=== PATIENT | female | born 1980 | race Caucasian/White ===

== ENCOUNTER → 2019-10-31 13:13 | Outpatient (CLI) | payer BC, SELFPAY ==
--- NOTE | ~2019-10-31 | US_ITS ---
EXAMINATION: US pelvic complete w TV DATE: 10/31/2019 13:37 INDICATION: Dysmenorrhea. Right lower quadrant pain. Comparison:No prior studies for comparison. TECHNIQUE: Multiple transabdominal and endovaginal sonographic images of the pelvis performed. FINDINGS: The uterus measures 8.6 x 4.7 x 5.6 cm. The endometrial complex measures 1.5 cm. The right ovary measures 2.1 x 1.9 x 2.2 cm. and the left ovary measures 1.9 x 1.3 x 1.4 cm. There a re small follicles in each ovary. There is no free fluid in the pelvis. There are no abnormal masses seen on either side. IMPRESSION: 1. Endometrial thickening measuring 1.5 cm. Reviewed, dictated and finalized at location A.
== END ==
PROVIDERS: Visit Provider Nurse Practitioner Obstetrics & Gynecology
DX: R93.89 Abnormal findings on diagnostic imaging of other specified body structures (principal); N94.6 Dysmenorrhea, unspecified; N92.0 Excessive and frequent menstruation with regular cycle
CPT/HCPCS: 76830; 76856

== ENCOUNTER → 2020-07-02 10:27 | Outpatient (CLI) | payer BC, SELFPAY ==
--- NOTE | ~2020-07-02 | MM_ITS ---
EXAMINATION: MM screening demetrio BI w wagner HISTORY: Screening mammogram TECHNIQUE: Craniocaudal and mediolateral oblique 3-D tomosynthesis images were obtained and synthetic 2-D images were generated. CAD analysis was submitted and interpreted. COMPARISON: No prior mammogram is available for comparison at this institution. BREAST PARENCHYMAL COMPOSITION: There are scattered areas of fibroglandular density. FINDINGS: RIGHT BREAST: There is no evidence of suspicious mass, calcification, or architectural distortion to suggest malignancy. LEFT BREAST: There is focal asymmetry in the lower inner quadrant of the left breast. IMPRESSION: 1. Focal asymmetry of the left breast which may represent the patient's baseline however no compariso n is currently available. 2. Comparison with prior mammograms is necessary. BI-RADS Category 0: Incomplete: Needs comparison with prior mammograms. Reviewed, dictated and finalized at location A. OMER GREETER IMPRESSION: 1. Focal asymmetry of the left breast which may represent the patient's baselin e however no comparison is currently available. 2. Comparison with prior mammograms is necessary. BI-RADS Category 0: Incomplete: Needs comparison with prior mammograms.
== END ==
PROVIDERS: PCP Internal Medicine; Visit Provider Obstetrics & Gynecology
DX: Z12.31 Encounter for screening mammogram for malignant neoplasm of breast (principal); R92.8 Other abnormal and inconclusive findings on diagnostic imaging of breast
CPT/HCPCS: 77063; 77067

== ENCOUNTER → 2020-07-25 08:12 | Outpatient (CLI) | payer BC, SELFPAY ==
--- NOTE | ~2020-07-25 | MM_ITS ---
EXAMINATION: MM diagnostic mammo unilat LT HISTORY: Focal mammographic asymmetry reported in lower inner quadrant of left breast 07/02/2020 [facility] mammogram TECHNIQUE: Additional ML and spot ML, MLO and cc 3-D tomosynthesis images of the left breast were per formed and synthetic 2-D images were generated. Rolled medial and lateral lateral craniocaudal views of left breast. CAD analysis was submitted and interpreted. COMPARISON: 07/02/2020 and 12/07/2015mammogram examinations FINDINGS: The area of asymmetry suggested on 07/02/2020 screening mammogram in the anterior inner left breast is not confirmed on coned compression or rolled views, compatible with composite shadowing of overlapping fibroglandular stroma. IMPRESSION: 1. No mammographic evidence of malignancy 2. Routine annual mammographic screening is recommended. BI-RADS Category 2: Benign finding(s). Reviewed, dictated and finalized at location A. RECEIVER
== END ==
PROVIDERS: PCP Internal Medicine; Visit Provider Obstetrics & Gynecology
DX: R92.8 Other abnormal and inconclusive findings on diagnostic imaging of breast (principal)
CPT/HCPCS: 77065

== ENCOUNTER 2020-08-08 08:02 | Outpatient (CLI) | payer BC, SELFPAY ==
--- NOTE | 2020-08-08 08:05 | ECG_ITS ---
Measurements Intervals Sagle Rate: 93 P: 18 SC: 151 QRS: 9 QRSD: 89 T: 3 QT: 365 QTc: 455 Interpretive Statements SINUS RHYTHM DELAYED PRECORDIAL R/S TRANSITION BORDERLINE T WAVE ABNORMALITY- ANT/INF LEADS BORDERLINE ECG Electronically Signed On 08-08-2020 8:30:02 P[employer]ER HANGER by Rashel Pal D.O.
[2020-08-08 08:26] LABS: Hematocrit 42.5 % (37.0-47.0); Hemoglobin 14.4 g/dL (12.0-15.0)
== END 2020-08-08 08:03 | disposition home or self-care (01) ==
LOC: ANHSURGERY 08:05
PROVIDERS: PCP Internal Medicine; Visit Provider Surgery
DX: Z01.818 Encounter for other preprocedural examination (principal); K43.2 Incisional hernia without obstruction or gangrene
CPT/HCPCS: 36415; 85014; 85018; 86850; 86900; 86901; 93005

== ENCOUNTER 2020-08-11 00:29 | Outpatient (CLI) | payer BC, SELFPAY ==
[2020-08-11 18:59] LABS: SARS-CoV-2 RNA PCR Negative
== END 2020-08-11 00:30 | disposition home or self-care (01) ==
LOC: ANHCOVIDDT 00:30
PROVIDERS: PCP Internal Medicine; Visit Provider Surgery
DX: Z01.818 Encounter for other preprocedural examination (principal); Z20.828 Contact with and (suspected) exposure to other viral communicable diseases
CPT/HCPCS: 87635; C9803; U0003

== ENCOUNTER 2020-08-15 10:36 | Observation (INO) | payer BC, SELFPAY ==
[2020-08-03 14:21] VITALS: BMI 27.2
--- NOTE | 2020-08-13 09:34 | WPDANESEPP ---
Anes - Eval Pre Procedure Procedure: Operation Date: 08/14/20 07:30 Proposed Procedures p Laparoscopic Incisional Hernia Repair With Mesh, Davinci Assisted - Devon Hendricks DO s Total Laparoscopic Hysterectomy - Suzanna Macias MD Date/Time: 08/13/20 09:34 Pre Op Diagnosis: Incisional Hernia, menorrhaghia Patient Data Age: 40 Gender: F Height: 5 ft 4 in Weight: 72 kg Allergies Allergy/AdvReac Type Severity Reaction Status Date / Time No Known Allergies Allergy Verified 06/08/20 10:45 Home Medications Medication Instructions Recorded Confirmed Type levothyroxine 75 mcg tablet 75 mcg PO DAILY 06/07/20 08/03/20 History phentermine 15 mg PO DAILY 08/03/20 08/03/20 History topiramate 50 mg PO DAILY 08/03/20 08/03/20 History PMFSH Past Medical History Medical History Hypothyroid Surgical History Surgical History H/O partial thyroidectomy x2 , 2018 Hx laparoscopic cholecystectomy 2018, OA Dr. Bunch S/P colon resection right, benign tumor removal Family History Family History Sibling Family history of allergic disorder Mother Family history of hypothyroidism Hypertension Grandparent Diabetes mellitus Grandparent Lymphoma Other Breast cancer Other Family history of malignant neoplasm No family history of malignant neoplasm Social History Social History Smoking status: Never smoker Alcohol intake: never Additional occupation/education comments: Self Employed Gender identity (if verbalized by the patient): Female Spiritual care concerns: No Exam Day of Procedure 08/13/20 09:34
[2020-08-14] VITALS (19 sets, daily range): BP systolic 88–123; BP diastolic 59–89; PULSE 66–104; RESP 12–20; TEMP 36.2–37.1; O2SAT 93–100
[2020-08-14] MEDS: ACETAMINOPHEN 500 MG TABLET 1000 MG PO (06:35)
[2020-08-14] MEDS: LACTATED RINGERS 1,000 ML 30 ML IV CONT ×3 (06:37→12:20)
--- NOTE | 2020-08-14 07:04 | WPDANESEPPF ---
Anes - Initial Pre Proc Eval Procedure: Operation Date: 08/14/20 07:30 Proposed Procedures p Laparoscopic Incisional Hernia Repair With Mesh, Davinci Assisted - Devon Hendricks DO s Total Laparoscopic Hysterectomy - Suzanna Macias MD Date/Time: 08/14/20 07:04 Surgeon: Devon Hendricks DO Pre Op Diagnosis: Incisional Hernia, menorrhaghia Patient Data Age: 40 Gender: F Height: 5 ft 4 in Weight: 72.9 kg Last Vital Signs Temp 97.7 F 08/14/20 06:09 Pulse 80 08/14/20 06:09 Resp 20 08/14/20 06:09 BP 122/83 08/14/20 06:09 Pulse Ox 100 08/14/20 06:09 Allergies Allergy/AdvReac Type Severity Reaction Status Date / Time No Known Allergies Allergy Verified 08/14/20 07:00 Home Medications Medication Instructions Recorded Confirmed Type levothyroxine 75 mcg tablet 75 mcg PO DAILY 06/07/20 08/14/20 History phentermine 15 mg PO DAILY 08/03/20 08/03/20 History topiramate 50 mg PO DAILY 08/03/20 08/03/20 History Patient hx anesthesia problems: post op nausea/vomiting Family hx anesthesia problems: none PMFSH Past Medical History Medical History Hypothyroid Surgical History Surgical History H/O partial thyroidectomy x2 , 2017 Hx laparoscopic cholecystectomy 2017, OA Dr. Bunch S/P colon resection right, benign tumor removal Family History Family History Sibling Family history of allergic disorder Mother Family history of hypothyroidism Hypertension Grandparent Diabetes mellitus Grandparent Lymphoma Other Breast cancer Other Family history of malignant neoplasm No family history of malignant neoplasm Social History Social History Smoking status: Never smoker Alcohol intake: never Living arrangements: with family Additional occupation/education comments: Self Employed Gender identity (if verbalized by the patient): Female Sexual Orientation (if Verbalized by the Patient): Straight or Heterosexual Spiritual care concerns: No Anes - Eval Final PreProcedure Day of Procedure 08/14/20 07:04 Patient weight: overweight Heart: regular rate and rhythm Lungs: clear to auscultation Airway: Mallampati scale class II Neurological: alert and oriented Last oral intake: >/= 8 hours ASA classification: II Emergent: no Anesthetic plan: proceed Anesthesia type and monitoring: general ETT and standard monitoring Informed Consent: The patient's anesthetic plan and its attendant risks and benefits were discussed with the patient/family/POA. Questions were solicited and answers provided to the satisfaction of the patient/family/POA.
[2020-08-14] MEDS: SCOPOLAMINE 1.5 MG PATCH TRANSDERM (07:08)
--- NOTE | 2020-08-14 07:08 | PM.IMHP ---
H&P: HPI History of Present Illness Date/Time: 08/14/20 07:08 Chief Complaint: Incisional hernia Narrative: Lory Rubio is a 40 year old female who presents for hysterectomy and incisional hernia repair. She reports no changes since last seen in office. Review of Systems Review of Systems: All systems reviewed & are unremarkable except as noted in HPI and below Constitutional: Constitutional: Denies chills, Denies fever(s), Denies headache(s) and Denies weight loss Eyes: Eyes: Denies change in vision ENT: Denies dizziness, Denies headache(s), Denies neck mass and Denies throat swelling Cardiovascular: Cardiovascular: Denies chest pain, Denies lightheadedness and Denies dyspnea Respiratory: Respiratory: Denies cough, Denies dyspnea and Denies wheezing Gastrointestinal: Gastrointestinal: Denies abdominal pain, Denies change in bowel habits, Denies nausea and Denies vomiting Genitourinary: Genitourinary: Denies hematuria and Denies dysuria Musculoskeletal: Musculoskeletal: Reports as per HPI Integumentary/Breasts: Skin/Breast: Reports as per HPI Neurologic: Denies dizziness and Denies headache(s) Allergic/Immunologic: Allergic/Immunologic: Denies throat swelling and Denies wheezing PMFSH Past Medical History Medical History Hypothyroid Surgical History Surgical History H/O partial thyroidectomy x2 s, 2018 Hx laparoscopic cholecystectomy 2018, OA Dr. Bunch S/P colon resection right, benign tumor removal Family History Family History Sibling Family history of allergic disorder Mother Family history of hypothyroidism Hypertension Grandparent Diabetes mellitus Grandparent Lymphoma Other Breast cancer Other Family history of malignant neoplasm No family history of malignant neoplasm Social History Social History Smoking status: Never smoker Alcohol intake: never Living arrangements: with family Additional occupation/education comments: Self Employed Gender identity (if verbalized by the patient): Female Sexual Orientation (if Verbalized by the Patient): Straight or Heterosexual Spiritual care concerns: No Meds Home Medications and Allergies Home Medications Medication Instructions Recorded Confirmed Type levothyroxine 75 mcg tablet 75 mcg PO DAILY 06/07/20 08/14/20 History phentermine 15 mg PO DAILY 08/03/20 08/03/20 History topiramate 50 mg PO DAILY 08/03/20 08/03/20 History Allergies Allergy/AdvReac Type Severity Reaction Status Date / Time No Known Allergies Allergy Verified 08/14/20 07:00 Vital Signs Vital Signs - 24 hr 08/14/20 06:09 Temperature 36.5 C Pulse Rate 80 Respiratory Rate 20 Blood Pressure 122/83 Pulse Oximetry 100 Exam Const: General: no acute distress and alert Orientation/consciousness: patient oriented x3 HENMT: Head: normocephalic and atraumatic Ears: hearing grossly normal bilaterally General nose exam: Normal nares present Mouth: Yes Normal oral and palatal mucosa present Eyes: Periorbital: periorbital findings normal Sclera: sclerae normal EOM: EOMs intact bilaterally Neck: Neck: normal visual inspection, no lymphadenopathy and trachea midline Chest: Chest palpation & inspection: normal inspection of the chest Resp: Effort & Inspection: normal respiratory effort Auscultation: clear to auscultation bilaterally Cardio: Jugular venous distension: no JVD Rate: regular rate Rhythm: regular rhythm Heart sounds: S1 normal heart sound present and S2 normal heart sound present Peripheral pulses: Peripheral pulses 2+ throughout GI: Inspection: normal to inspection GI Palp: Yes Soft to palpation, No Tenderness to palpation present (GI), No Guarding due to palpation
--- NOTE | 2020-08-14 07:10 | WPDHPUPDATE1 ---
History and Physical Update Update Date/Time: 08/14/20 07:10 History and Physical has been reviewed, including an updated exam of the patient. There are NO changes in the patient's condition. Risks, benefits, and alternatives have been discussed and questions answered. Patient agrees to proceed with procedure.
--- NOTE | 2020-08-14 07:14 | WPDHPUPDATE1 ---
History and Physical Update Update Date/Time: 08/14/20 07:14 History and Physical has been reviewed, including an updated exam of the patient. There are NO changes in the patient's condition. Risks, benefits, and alternatives have been discussed and questions answered. Patient agrees to proceed with procedure.
--- NOTE | 2020-08-14 07:20 | PM.IMHP ---
H&P: HPI History of Present Illness Date/Time: 08/14/20 07:20 Chief Complaint: Heavy vaginal bleeding Narrative: Lory Rubio is a 40 year old female with severe menorrhagia. We have agreed for total laparoscopic hysterectomy. She understands that there is wrist surgery that injuries may occur. She understands that injuries may result in hospitalization, severe illness, and more surgery. She understands the risk of hemorrhage and infection. Review of Systems Constitutional: Constitutional: Reports no additional constitutional complaints, Denies fatigue, Denies headache(s), Denies lethargy and Denies weakness Eyes: Eyes: Reports no additional eye complaints, Denies blurry vision and Denies photophobia ENT: Reports as per HPI, Denies headache(s) and Denies neck pain Cardiovascular: Cardiovascular: Denies chest pain, Denies diaphoresis, Denies leg edema, Denies palpitations and Denies dyspnea Respiratory: Respiratory: Denies hemoptysis, Denies dyspnea and Denies wheezing Gastrointestinal: Gastrointestinal: Denies abdominal pain, Denies melena, Denies bloating, Denies hematochezia, Denies nausea and Denies vomiting Genitourinary: Genitourinary: Reports no additional female genitourinary complaints Musculoskeletal: Musculoskeletal: Denies joint swelling, Denies neck pain, Denies numbness and Denies stiffness Neurologic: Denies Abnormal speech present, Denies confusion, Denies headache(s), Denies numbness and Denies weakness Psychiatric: Psychiatric: Denies anxiety, Denies confusion, Denies depression, Denies homicidal ideation and Denies suicidal ideation Endocrine: Endocrine: Denies fatigue and Denies palpitations Allergic/Immunologic: Allergic/Immunologic: Denies wheezing PMFSH Past Medical History Medical History Hypothyroid Surgical History Surgical History H/O partial thyroidectomy x2 s, 2018 Hx laparoscopic cholecystectomy 2018, OA Dr. Bunch S/P colon resection right, benign tumor removal Family History Family History Sibling Family history of allergic disorder Mother Family history of hypothyroidism Hypertension Grandparent Diabetes mellitus Grandparent Lymphoma Other Breast cancer Other Family history of malignant neoplasm No family history of malignant neoplasm Social History Social History Smoking status: Never smoker Alcohol intake: never Living arrangements: with family Additional occupation/education comments: Self Employed Gender identity (if verbalized by the patient): Female Sexual Orientation (if Verbalized by the Patient): Straight or Heterosexual Spiritual care concerns: No Meds Home Medications and Allergies Home Medications Medication Instructions Recorded Confirmed Type levothyroxine 75 mcg tablet 75 mcg PO DAILY 06/07/20 08/14/20 History phentermine 15 mg PO DAILY 08/03/20 08/03/20 History topiramate 50 mg PO DAILY 08/03/20 08/03/20 History Allergies Allergy/AdvReac Type Severity Reaction Status Date / Time No Known Allergies Allergy Verified 08/14/20 07:00 Vital Signs Vital Signs - 24 hr 08/14/20 06:09 Temperature 97.7 F Pulse Rate 80 Respiratory Rate 20 Blood Pressure 122/83 Pulse Oximetry 100 Exam Const: General: healthy appearing, comfortable and no acute distress; No confusion Orientation/consciousness: No confusion Eyes: Direct Ophthalmoscopy: No photophobia Resp: Auscultation: clear to auscultation bilaterally, no rales, no rhonchi and no wheezes Cardio: Rate: regular rate Heart sounds: no click, no murmurs and no rubs GI: Inspection: non-distended GI Palp: No abdominal tenderness Auscultation: normal bowel sounds Neuro: General: No confusion Speech: No
[2020-08-14] MEDS: KETOROLAC 15 MG/ML VIAL (*BKC) IV PUSH (07:24)
[2020-08-14] MEDS: ceFAZolin 2 GM/D5W 50 ML 2 GM/50 ML BAG IVPB ×2 (07:33→12:22)
--- NOTE | 2020-08-14 10:32 | P.OP_ITS ---
Procedure Note - Detailed Date of procedure: 08/14/20 Pre-op diagnosis: Incisional Hernia, menorrhaghia Myoma Post-op diagnosis: same Procedure performed: Total laparoscopic hysterectomy. With bilateral salpingectomy Description of procedure: The patient was taken to the operating room. She was prepped and draped in the dorsal lithotomy position. A speculum was placed in the vagina. The cervix was grasped with a tenaculum. Stay sutures were placed at 3 and 9:00 a.m. of 0 Vicryl. The stay sutures were brought through the Angus up. The GAVIN manipulator was placed in the vagina with a fixed Angus cup. The cup was then pushed up around the cervix. The sutures were tied to the handle of the GAVIN manipulator. A 5 mm incision was made on the abdominal skin of the left upper quadrant using a scalpel. A 5 mm trocar was inserted into the intra-abdominal cavity under direct visualization the scope. Pneumoperitoneum was achieved. An 11 mm incision was made in the left lower quadrant of the abdomen with a scalpel. A 11 mm trocar was inserted into the intra-abdominal cavity under direct visualization the scope. A 5 mm periumbilical incision was made. A 5 mm scope was placed into the intra-abdominal cavity under direct visualization of the scope. The paratubal tissue between the tube and ovary was cauterized transected with LigaSure cautery. This was done in bilateral fashion. The paratubal tissue was cauterized transected with the LigaSure cautery and a bilateral fashion, stepwise around the tube to the middle of the round ligament. The suspensory ligament of the ovary was cauterized and transected with ligature cautery in a bilateral fashion. The round ligaments were cauterized and transected in bilateral fashion with LigaSure cautery. The round ligaments were cauterized and transected bilaterally with LigaSure cautery. The broad ligaments were cauterized and transected along the lateral aspects of the uterus down the level of the uterine arteries. A bladder flap was created using sharp and blunt dissection. The ureters were dissected out bilaterally down to the level of the uterine arteries. They could be visualized from the pelvic brim down the uterine arteries. Staying very close to the cervix the parametrium was cauterized transected in a stepwise fashion down to the level of the Angus cup. The Bladder flap was moved distally over the Angus cup using sharp and blunt dissection. The impression of the entire cup was visualized around the cervix. An incision was made with unipolar cautery down under the Angus cup creating a colpotomy incision all the way around the cervix. The uterus was taken out through the vagina. A pneumo occluder was placed in the vagina. The vagina was closed with 0 V lock suture in a running fashion. The ureters were identified a gain and found to be intact to the level of the uterine arteries. The pelvis was irrigated with a copious amount of antibiotic irrigation. The pneumoperitoneum was reduced. The trocars were removed. The skin was closed subcuticular 4 Monocryl covered with Dermabond. The pneumo occluder was removed from the vagina. The vagina was irrigated with Betadine. The patient tolerated the procedure well. She was taken to the recovery room in stable condition. Sponge lap and needle counts were correct x2. Anesthesia: GETA Surgeon: Suzanna Macias MD Estimated blood loss (mL): 200 Drains: No Packing: No Pathology: yes Complications: No immediate complications Condition: stable Disposition: PACU Findings: Grossly normal appearing tubes and ovaries. Uterus - 9
--- NOTE | 2020-08-14 10:45 | SUR.OPER ---
Symbotex Mesh [id number], lot [id number], Exp 2025-01-21.
--- NOTE | 2020-08-14 11:41 | PM.PROC ---
Procedure Note - Detailed Date of procedure: 08/14/20 Pre-op diagnosis: Incisional Hernia, menorrhaghia Post-op diagnosis: same Procedure performed: Laparoscopic incisional hernia repair with Symbotex mesh, da Richard assisted Description of procedure: Procedure as well as risks, benefits, and alternatives were discussed with the patient. Written consent was obtained and placed in chart prior to procedure. Patient was brought back to surgical suite. She was placed supine on operating table. Time-out was done to confirm patient and procedure. She was then intubated by the anesthesia department. A bump was placed under her left hip, and the bed was flexed slightly to extend the space between her costal margin and iliac crest. Her abdomen was prepped and draped in sterile fashion using chlorhexidine prep. The patient underwent laparoscopic hysterectomy. Please refer to Dr. Macias's note for his details. The left lower quadrant 11 mm port was left in place while the 2 other 5 mm ports were removed. A 12 mm incision was made in the left upper quadrant and a 12 mm port was placed under direct visualization. An 8 mm camera port was then also placed in the left lateral abdomen. A Bernardino-Unger cone was also used to place an 0-Vicryl simple interrupted suture at the left upper quadrant and left lower quadrant trocar sites. The left lower quadrant 11 mm port was removed and this was replaced with an 8 mm robotic ports. The robotic arms were brought up to the patient's bedside and secured to the ports. The camera and instruments were inserted, and I then moved over to the robotic console and took control of the camera and instruments. After careful thorough inspection of the abdominal cavity, I began my dissection at the hernia. The preperitoneal fat and falciform ligament were taken down cephalad far enough to allow for mesh placement, and the preperitoneal fat and umbilical ligaments were taken down caudally far enough for mesh placement. The hernia sac was very thin and was therefore left in place within the hernia defect. I then measured the hernia size. The hernia measured 3 cm x 3 cm. The fascia was closed using an 0-Stratafix running suture in a vertical fashion. A 10 cm x 15 cm Symbotex mesh was then placed within the abdominal cavity. This was oriented vertically with the mesh centered on the hernia defect. The mesh was then secured around the perimeter using 2 0 V lock running absorbable suture. The repair was inspected, and one final inspection was made around the abdominal cavity. The robotic instruments were then removed, and the robotic arms were disengaged from the trocars. The ports were then removed under direct visualization, the camera was removed, and the pneumoperitoneum was released. The 0 Vicryl transfascial suture was tied down. The skin of the incisions was then approximated using 4-0 Monocryl subcuticular suture. Exofin glue was then applied on top. The patient was then awakened from anesthesia, extubated, and transferred to recovery. Implants: Symbotex 10cm x 15cm mesh Anesthesia: GETAcacia Surgeon: Devon Hendricks DO Estimated blood loss (mL): 10 Drains: No Complications: No immediate complications Condition: stable Disposition: floor Findings: This is a 40-year-old woman who presented with an incisional hernia just above her umbilicus. She has a history of a laparoscopic right hemicolectomy for a large polyp. She developed an incisional hernia at the extraction site just above her umbilicus. This was causing her pain and had increased in size over time. Discussions were made with the patient about her treatment options. She was undergoing a laparoscopic hysterectomy and wanted to coordinate both surgeries at the same time. Decision was made to proceed with laparoscopic incisional hernia repair with mesh, da Richard assisted at the same time as her laparoscopic hysterectomy with Dr. Macias. A robotic assisted laparoscopic incisio
[2020-08-14] MEDS: HYDROmorphone HCL INJ (*CRX) 1 MG/ML SYR 0.5 MG IV PUSH ×4 (12:35→13:06)
[2020-08-14] MEDS: PROPARACAINE HCL 0.5% 15 ML OPHTH SOLN 1 DROP EACH EYE (13:31)
[2020-08-14] MEDS: KETOROLAC 30 MG/ML VIAL (*BKC) IV PUSH ×2 (15:35→23:42)
[2020-08-14] MEDS: SIMETHICONE 80 MG TAB.CHEW PO (15:35)
[2020-08-14] MEDS: DEXTROSE 5%/0.9% SOD CHL 1,000 ML 100 ML IV CONT (15:36)
[2020-08-14] MEDS: ONDANSETRON INJ 4 MG/2 ML VIAL IV PUSH ×2 (17:31→23:42)
[2020-08-14] MEDS: HYDROcodone/acetaminophen (*CRX) 10-325 MG TABLET 1 TAB PO (20:59)
[2020-08-15 00:05] VITALS: BP 99/61; PULSE 78; RESP 13; TEMP 36.9; O2SAT 95
[2020-08-15 04:30] VITALS: BP 94/63; PULSE 72; RESP 15; TEMP 36.9; O2SAT 96
[2020-08-15] MEDS: HYDROcodone/acetaminophen (*CRX) 10-325 MG TABLET 1 TAB PO ×4 (04:31→17:33)
[2020-08-15] MEDS: DEXTROSE 5%/0.9% SOD CHL 1,000 ML 125 ML IV CONT (04:39)
[2020-08-15] MEDS: KETOROLAC 30 MG/ML VIAL (*BKC) IV PUSH ×2 (05:30→11:41)
[2020-08-15] MEDS: ONDANSETRON INJ 4 MG/2 ML VIAL IV PUSH ×2 (05:31→11:41)
[2020-08-15] MEDS: LEVOTHYROXINE SODIUM 75 MCG TABLET PO (07:06)
[2020-08-15 07:35] VITALS: BP 104/66; PULSE 72; RESP 18; TEMP 37.4; O2SAT 96
[2020-08-15] MEDS: TOPIRAMATE 25 MG TABLET 50 MG PO (07:50)
--- NOTE | 2020-08-15 09:04 | PM.GYNPNOP ---
PROFESSOR OF VISUAL ARTS - A/P Postoperative Procedures: Procedures Operation Date: 08/14/20 07:30 Actual Procedures Side Surgeon p Laparoscopic Incisional Hernia Repair With Mesh, Davinci Assisted Not Applicable DO tomasz Vital Total Laparoscopic Hysterectomy,Bilateral Salpingectomy Suzanna Macias MD Postoperative day: 1 Postoperative status: doing well and other (Tollerating Regular Diet) Postoperative plan: routine post-op care and discharge Time Spent With Patient Time: Total time spent is greater than 50% in coordination of care (as documented) at patient's floor/unit and/or counseling patient: Time with patient: 15 - 25 minutes PROFESSOR OF VISUAL ARTS- PN:Subj Post-Op Subjective Date/time seen: 08/15/20 09:04 Subjective: patient reports feeling better, pain is well controlled and patient is tolerating oral intake Exam Const: General: cooperative, healthy appearing, comfortable and no acute distress Resp: Auscultation: no crackles, no rales, no rhonchi and no wheezes Cardio: Rhythm: regular rhythm Heart sounds: no click and no murmurs GI: Inspection: non-distended Auscultation: normal bowel sounds Other: Incisions - CDI Extrem: General: normal to inspection, no pedal edema and no calf tenderness PROFESSOR OF VISUAL ARTS - PN: Obj Data Vital Signs Vital Signs: Vital Signs - 24 hr 08/14/20 12:03 08/14/20 12:15 08/14/20 12:30 Temperature 97.3 F L Pulse Rate 85 72 66 Respiratory Rate 12 14 12 Blood Pressure 121/89 123/82 120/87 Pulse Oximetry 100 100 100 08/14/20 12:45 08/14/20 13:00 08/14/20 13:15 Temperature Pulse Rate 76 67 69 Respiratory Rate 12 12 12 Blood Pressure 115/89 111/89 98/76 L Pulse Oximetry 100 95 93 08/14/20 13:30 08/14/20 13:42 08/14/20 13:45 Temperature 97.2 F L Pulse Rate 70 72 70 Respiratory Rate 14 16 16 Blood Pressure 109/73 96/66 L 97/64 L Pulse Oximetry 97 100 99 08/14/20 14:00 08/14/20 14:30 08/14/20 15:00 Temperature 97.7 F Pulse Rate 70 74 72 Respiratory Rate 16 16 16 Blood Pressure 94/59 L 88/59 L 97/64 L Pulse Oximetry 96 97 97 08/14/20 15:30 08/14/20 16:00 08/14/20 17:00 Temperature Pulse Rate 73 76 69 Respiratory Rate 16 16 16 Blood Pressure 100/62 102/59 L Pulse Oximetry 100 100 100 08/14/20 18:25 08/14/20 18:50 08/14/20 19:30 Temperature 98.7 F Pulse Rate 81 73 104 H Respiratory Rate 16 16 15 Blood Pressure 101/63 101/65 108/68 Pulse Oximetry 99 08/15/20 00:05 08/15/20 04:30 Temperature 98.5 F 98.4 F Pulse Rate 78 72 Respiratory Rate 13 15 Blood Pressure 99/61 L 94/63 L Pulse Oximetry 95 96 Intake/Output Intake/Output: Intake & Output 08/12/20 08/13/20 08/14/20 08/15/20 23:59 23:59 23:59 23:59 Intake Total 550 1000 Output Total 825 Balance 550 175 Meds/Results Medications: Active Medications Generic Name Dose Route Start Last Admin Trade Name Freq PRN Reason Stop Dose Admin Hydrocodone Bitart/Acetaminophen 1 tab 08/14/20 13:36 Hydrocodone/Acetaminophen (*Crx) 5-325 Mg Tablet PO Q3H PRN Pain Rated 5 or Less Hydrocodone Bitart/Acetaminophen 1 tab 08/14/20 13:36 08/15/20 07:50 Hydrocodone/Acetaminophen (*Crx) 10-325 Mg Tablet PO 1 tab Q3H PRN Administration Pain Rated 6 or Greater Artificial Tears 1 drop 08/14/20 13:28 Artificial Tears Op Soln 15 Ml Bottle EACH EYE Q2H PRN Dry Eye(s) Dextrose/Sodium Chloride 1,000 mls @ 100 mls/hr 08/14/20 15:30 08/15/20 04:39 Dextrose 5% Sodium Chloride 0.9% IV CONT 125 mls/hr .Q10H ELIAS Administration Ibuprofen 600 mg 08/14/20 13:36 Ibuprofen 600 Mg Tablet PO Q6H PRN Cramping Ketorolac Tromethamine 30 mg 08/14/20 13:36 08/15/20 05:30 Ketorolac 30 Mg/Ml Vial (*Bkc) IV PUSH 08/19/20 13:37 30 mg Q6H PRN Administration Pain Rated 4-6 Levothyroxine Sodium 75 mcg 08/15/20 06:30 08/15/20 07:06 Levothyroxine Sodium 75 Mcg Tablet PO 75 mcg DAILY@0630 ELIAS Administration Naloxone HCl 0.1 mg 08/14/20 1
--- NOTE | 2020-08-15 11:16 | PM.PNGS ---
Progress Note: A&P Assessment and Plan (1) Incisional hernia: Qualifiers: Obstruction and gangrene presence: without obstruction or gangrene Qualified Code(s): K43.2 - Incisional hernia without obstruction or gangrene Code(s): K43.2 - Incisional hernia without obstruction or gangrene Status: Acute Assessment and Plan: POD#1 and patient doing fair. Encouraged her to get up and walk the halls multiple times today and try sitting in the chair. Continue analgesics as needed and try alternating the ibuprofen with the [place]. Also encouraged small frequent meals and trying to eat something when taking her medication to prevent nausea. If her pain improves, she is tolerating activity, and she is tolerating a diet later today, it is okay from our standpoint for the patient to be discharged home. Follow-up with Dr. Hendricks as scheduled. No lifting more than 10-15 pounds. Use abd binder as directed. (2) Menorrhagia: Qualifiers: Menorrhagia type: with regular cycle Qualified Code(s): N92.0 - Excessive and frequent menstruation with regular cycle Code(s): N92.0 - Excessive and frequent menstruation with regular cycle Status: Acute Additional Plan Discussed the patient's case with Dr. Hendricks. Subjective Subjective Date/Time Seen: 08/15/20 10:16 Post Op day: 1 Patient reports: still having pain, no flatus and no bowel movement Interval history: Patient seen this morning. She reports a lot of soreness and abdominal pain that is improving with oral analgesics. Reports recently having her Tirado removed this morning and has not yet voided. Denies getting out of bed since surgery because of her abdominal pain. No flatus or BM yet. Reports some nausea but has been taking the narcotics on an empty stomach with little oral intake, no vomiting. Review of Systems Review of Systems: All systems reviewed & are unremarkable except as noted in HPI and below Constitutional: Constitutional: Reports as per HPI, Reports no additional constitutional complaints, Denies chills and Denies fever(s) Cardiovascular: Cardiovascular: Reports no additional cardiovascular complaints, Denies chest pain, Denies leg edema and Denies dyspnea Respiratory: Respiratory: Reports no additional respiratory complaints, Denies cough and Denies dyspnea Gastrointestinal: Gastrointestinal: Reports as per HPI, Reports no additional gastrointestinal complaints, Denies bloating, Reports nausea and Denies vomiting Neurologic: Reports system reviewed and no additional complaints, except as documented, Denies Abnormal speech present, Denies confusion and Denies focal weakness Psychiatric: Psychiatric: Denies confusion Exam Const: General: comfortable, no acute distress, alert and awake Orientation/consciousness: patient oriented x3 Resp: Effort & Inspection: normal respiratory effort Auscultation: clear to auscultation bilaterally Cardio: Rate: regular rate Rhythm: regular rhythm GI: Inspection: non-distended and incision GI Palp: Yes Soft to palpation, Yes Tenderness to palpation present (GI) (diffusely throughout, worse near incisions) and No Rebound tenderness present Auscultation: normal bowel sounds Rectal Exam: deferred Other: Abdominal incisions clean and dry, glue intact, minimal bloody drainage at periumbilical incision Skin: General skin exam: normal color Rashes: no rashes Neuro: General: moves all extremities and no focal motor deficits Cranial nerves: Yes CN's II-XII intact bilaterally Speech: normal speech and No Abnormal speech present Extrem: General: normal to inspection, no clubbing, cyanosis or edema and no calf tenderness Psych: Mental Status: mental status grossly normal Attitude: cooperative Thought process: Normal thought process present Thought content: Yes Normal thought content present Insight: Good insight present (Psych) Judgement: Good judgement present (Psych) Objective Data Vital Signs V
[2020-08-15 11:35] VITALS: BP 94/67; PULSE 56; RESP 24; O2SAT 94
--- NOTE | 2020-08-15 11:35 | WPDANESPN ---
Anes - Prog Note Post-Op Date/Time: 08/15/20 11:35 Cardiovascular status: normal Respiratory status: normal Airway patency: baseline Mental status: baseline Post-Op hydration status: normal Vital Signs: Last Vital Signs Temp 37.4 C 08/15/20 07:35 Pulse 72 08/15/20 07:35 Resp 18 08/15/20 07:35 BP 104/66 08/15/20 07:35 Pulse Ox 96 08/15/20 07:35 Pain Score (VAS): 5 I/O: Intake & Output 08/14/20 08/15/20 08/15/20 23:59 07:59 15:59 Intake Total 1000 375 Output Total 825 400 Balance 175 -25 Post-procedural complaints: nausea and vomiting Patient Feedback: Patient satisfied with anesthetic care. Other Findings: Patient reports blurry vision. Vision remains blurry when using corrective lenses which are normally worn. Findings discussed with Dr. Escoto
[2020-08-15 11:42] VITALS: BP 96/67; PULSE 62; RESP 22; O2SAT 95
[2020-08-15] MEDS: IBUPROFEN 600 MG TABLET PO (17:33)
--- NOTE | 2020-09-11 20:55 | PM.DS ---
DS: Admitting Diagnosis Admitting Diagnosis Admitting Diagnosis: incisional hernia, menorrhagia DS: Summary Hospital Course Hospital Course: this patient is a 40-year-old female who was admitted for surgery. She was to have a hernia repair and a hysterectomy. She had menorrhagia and a hernia. She recovered normally. She is in the hospital for about 24 hours. She was afebrile throughout that time. Her pain was well controlled and she was ambulating, tolerating p.o. at appropriate times. She was discharged on postoperative day 1. Status at Discharge Functional status at discharge: independent ambulation Time Spent with Patient Time attestation: Total time spent providing and/or coordinating discharge services: DS: Data Data Completed and Pending Completed studies during hospitalization: Pending at discharge 08/14/20 09:56 Surgical [PTH] Routine Discharge Plan Discharge Consulting providers: Suzanna Macias ; Jana Wallis Discharging Clinician: Devon Schroeder Patient Disposition: Home, Self-Care Activity: pelvic rest Diet: as tolerated Discharge Instructions: Remove the Scopolamine patch that was placed behind your ear in 72 hours or less. Wash your hands after touching. DISCHARGE INSTRUCTION SHEET FOR HERNIA, GALLBLADDER AND APPENDIX SURGERIES DR. SCHROEDER PATIENT TO TAKE HOME 1. May shower in 24 hours, no soaking in bath x 2weeks. 2. Call office for: Wound increasingly painful or bleeding Vomiting Fever of greater than 101 degrees 3. If no bowel movement for three days, take 1 oz. (30 ml) Milk of Magnesia or MiraLax 17g 1 to 2 times daily. 4. No heavy lifting > 10-15 pounds x6 weeks for hernia repairs and 2 weeks for laparoscopic cholecystectomy or appendectomy. 5. No driving for 3 days or while taking narcotic pain medications. 6. Ice to surgical site for 48 hours (30 min on, then 30 min off). 7. Up walking 10-30 minutes three times per day. 8. Resume previous home medications. 9. Follow-up 10-14 days in office for wound check or as previously scheduled. ([phone]) 10. Oral pain medications prescription to be sent to pharmacy. Take Tylenol 500mg every 6 hours and Ibuprofen 600mg every 6 hours for the first 2 days, then as needed. 11. NUTRITION: Start out by drinking fluids and increase your diet as tolerated. If you experience nausea, try dry toast, crackers, and 7-UP. If nausea or vomiting persists, contact your surgeon?s office. 12. Gallbladders-Low Fat Diet for 2 weeks (send care note of low fat diet) 13. Inguinal Hernias-wear scrotal support for 48 hours 14. Abdominal Hernias-if sent home with abdominal binder, wear for the first 2 weeks (may remove to shower or at night to sleep). Revised December 2018 Patient Instructions: Laparoscopic Hysterectomy (DC), Umbilical Hernia Repair (DC) Stand Alone Forms: General Discharge Instructions Follow-up/Referrals: Suzanna Macias MD [Physician] - Devon Schroeder, [Physician] - Keep Reg. Scheduled Appt. Discharge Medications: Continued levothyroxine 75 mcg tablet 75 mcg PO DAILY RF: 0 phentermine 15 mg capsule 15 mg PO DAILY RF: 0 topiramate 50 mg tablet 50 mg PO DAILY RF: 0 Date of admission: 08/15/20 10:36 Primary Care Provider: Kristal,Breezy Bryant Admitting Provider: Devon Schroeder Attending physician on admission: Devon Schroeder Condition: Stable
== END 2020-08-15 19:30 | disposition home or self-care (01) ==
LOC: ANHSURGERY 10:44 → ANHOB2 10:44
PROVIDERS: Obstetrics & Gynecology; Admitting Provider Surgery; PCP Internal Medicine; Visit Provider Surgery
PROC: (CPT 49560; principal; 2020-08-14 07:30)
PROC: 0UT9FZZ Resection of Uterus, Via Natural or Artificial Opening With Percutaneous Endoscopic Assistance (ICD-10-PCS; CPT 58552; 2020-08-14 07:30)
DX: K43.2 Incisional hernia without obstruction or gangrene (principal); N92.0 Excessive and frequent menstruation with regular cycle; E03.9 Hypothyroidism, unspecified
CPT/HCPCS: 49560; 49568; 58552; S2900 ×2; 88307; 96374; 96375; 99199; A9270; C1781; C9290; G0378; G0379; J0690; J1100; J1170; J1885; J2250; J2405; J2704; J2710; J3010; J7030; J7042; J7120

== ENCOUNTER → 2020-09-04 12:49 | Outpatient (CLI) | payer BC, SELFPAY ==
--- NOTE | ~2020-09-04 | US_ITS ---
EXAMINATION: US venous doppler [facility] EXAM DATE: 09/04/2020 13:13 INDICATION: M79.605 - Pain in left leg TECHNIQUE: Multiple grayscale, color flow and Doppler images of the left lower extremity deep venous system were obtained and reviewed. There is no prior study for comparison. FINDINGS: The left common femoral, femoral and profunda veins demonstrate normal color flow, respirat ory variation, augmentation and compressibility. Compressibility, color flow confirmed within the le ft popliteal, posterior tibial, peroneal, and greater saphenous veins. IMPRESSION: 1. No left lower extremity deep venous thrombosis. Reviewed, dictated and finalized at location B. CE CAPTAIN
== END ==
PROVIDERS: PCP Internal Medicine; Visit Provider Surgery
DX: M79.605 Pain in left leg (principal)
CPT/HCPCS: 93971

== ENCOUNTER → 2020-11-05 08:57 | Outpatient (CLI) | payer BC, SELFPAY ==
--- NOTE | ~2020-11-05 | CT_ITS ---
EXAMINATION: CT abdomen pelvis w con EXAM DATE: 11/05/2020 10:56 INDICATION: RLQ pain, pelvic and perineal pain. Bowel resection 10 years ago, cholecystectomy 3 years ago, hysterectomy, hernia repair. TECHNIQUE: Spiral CT of the abdomen and pelvis was performed following intravenous injection of 100 m L Omnipaque 350. Axial, coronal and sagittal images were reviewed. The dose-length product (DLP) fo r this examination was 623.80 mGy-cm. The exposure was tailored according to patient size (auto mA e xposure control), and iterative reconstruction (ASIR) was used as additional dose reduction technique . Comparison is made to prior examination from 05/09/2019. FINDINGS: There is 10 mm right adrenal nodule appears unchanged compared to 2019, likely adenoma The liver, spleen, adrenal glands and pancreas are otherwise unremarkable. There are cholecystectomy cl ips. Portal and splenic veins are patent. Kidneys enhance symmetrically. There is no hydronephrosis . Lobular renal contours. The uterus is not identified and has likely been surgically resected. The bladder is unremarkable. There is no retroperitoneal or pelvic lymphadenopathy. Interval anterior hernia repair. The appendix is normal. Ileal anastomosis site identified. The stomach is unremarkable. There is ex pected amount of colonic stool. No free intraperitoneal gas. The heart is normal in size. There are no pericardial or pleural effusions. The lung bases are unremarkable. Left hip bone island unch anged. IMPRESSION: 1. No acute intra-abdominal findings. Normal appendix. 2. Surgical changes. Reviewed, dictated and finalized at location A.
== END ==
PROVIDERS: Visit Provider Obstetrics & Gynecology
DX: R10.2 Pelvic and perineal pain (principal)
CPT/HCPCS: 74177; Q9967

== ENCOUNTER → 2021-07-05 10:30 | Outpatient (CLI) | payer BC, SELFPAY ==
--- NOTE | ~2021-07-05 | MM_ITS ---
EXAMINATION: MM screening demetrio BI w wagner HISTORY: Screening mammogram TECHNIQUE: Craniocaudal and mediolateral oblique 3-D tomosynthesis images were obtained and synthetic 2-D images were generated. CAD analysis was submitted and interpreted. COMPARISON: 07/25/2020 diagnostic left mammogram 07/02/2020 bilateral screening mammogram / outside bilateral screening mammogram BREAST PARENCHYMAL COMPOSITION: There are scattered areas of fibroglandular density. FINDINGS: There is no evidence of suspicious mass, calcification, or architectural distortion to sugg est malignancy in either breast. There has been no suspicious interval change. IMPRESSION: 1. No mammographic evidence of malignancy. 2. Recommend routine screening mammography in one year. BI-RADS Category 1: Negative Reviewed, dictated and finalized at location A. MOUNTER
== END ==
PROVIDERS: Visit Provider Obstetrics & Gynecology
DX: Z12.31 Encounter for screening mammogram for malignant neoplasm of breast (principal)
CPT/HCPCS: 77063; 77067

== ENCOUNTER 2021-10-03 15:33 | Outpatient (CLI) | payer OTHER, SELFPAY ==
--- NOTE | ~2021-10-03 | CT_ITS ---
EXAMINATION: CT abdomen pelvis w con DATE: 10/03/2021 15:59 INDICATION: Epigastric abdominal pain. Right upper quadrant abdominal pain. TECHNIQUE: Computed tomography (CT) of the abdomen and pelvis was performed with 100 mL Omnipaque 350 intravenous contrast. Automated exposure control and iterative reconstruction technique were employe d. The dose-length product was 545.62 mGy-cm. COMPARISON: CT abdomen and pelvis 11/05/2020 FINDINGS: The visualized portions of the lung bases demonstrate mild atelectasis. Calcified mediastin al and right hilar lymph nodes are consistent with old granulomatous disease. No pleural effusion. Th e heart size is normal. No pericardial effusion. There is a small sliding hiatal hernia. There are cy sts in the liver measuring up to 11 mm. There are changes of cholecystectomy. Calcifications in the s pleen are consistent with old granulomatous disease. The pancreas, adrenal glands, and are normal. Th ere is cortical thinning of the kidneys. There are cysts in right kidney measuring up to 8 mm. There is a 4.5 cm mass in left ovary. There are no dilated loops of bowel. The appendix is normal. There is soft tissue and fat stranding in the greater omentum between the stomach and transverse colon. There is physiologic fluid in the pelvis. There are no pathologically enlarged lymph nodes. There is mild thoracic spondylosis. IMPRESSION: 1. Soft tissue stranding in the greater omentum between the stomach and transverse colon. The differe ntial diagnosis includes inflammation/infection such as transverse colon diverticulitis and less like ly peritoneal carcinomatosis. 2. 4.5 cm left ovarian mass, which may be a hemorrhagic cyst or much less likely neoplasm. Pelvis ult rasound is recommended. Reviewed, dictated and finalized at location E. TOR TECHNICIAN IMPRESSION: 1. Soft tissue stranding in the greater omentum between the stomach and transve rse colon. The differential diagnosis includes inflammation/infection such as t ransverse colon diverticulitis and less likely peritoneal carcinomatosis. 2. 4.5 cm left ovarian mass, which may be a hemorrhagic cyst or much less likel y neoplasm. Pelvis ultrasound is recommended.
== END 2021-10-03 15:34 | disposition home or self-care (01) ==
LOC: ANHIMG 15:41
PROVIDERS: PCP Internal Medicine; Visit Provider Surgery
DX: R10.13 Epigastric pain (principal); R10.11 Right upper quadrant pain
CPT/HCPCS: 74177; Q9967

== ENCOUNTER 2021-10-03 17:29 | Observation (INO) | payer OTHER, SELFPAY ==
--- NOTE | ~2021-10-03 | US_ITS ---
EXAMINATION: US pelvic complete w TV DATE: 10/04/2021 09:54 INDICATION: Left ovarian mass TECHNIQUE: Multiple transabdominal and endovaginal sonographic images of the pelvis were obtained. COMPARISON: Ultrasound dated 11/01/[address] dated 10/03/2021 FINDINGS: The uterus is not no longer visualized and has reportedly been resected. The right ovary measures 2.2 x 1.4 x 1.9 cm. The left ovary measures 4.2 x 3.9 x 3.6 cm. 3.1 cm complex cystic lesion in the left ovary with several thin internal septations and the peripheral solid hypoechoic region which is with out evident internal vascular flow on color Doppler which suggests clot in the setting of a hemorrhag ic cyst. Vascular flow is seen with color Doppler at the periphery of the left ovary as well as in th e right ovary. There is no free fluid in the pelvis. IMPRESSION: 1. 3.1 cm complex cystic left ovarian lesion with appearance suggestive of an evolving hemorrhagic cy st. Recommend 6-12 week follow-up pelvic ultrasound. 2. Status post hysterectomy. Reviewed, dictated and finalized at location A. INER OPERATOR IMPRESSION: 1. 3.1 cm complex cystic left ovarian lesion with appearance suggestive of an e volving hemorrhagic cyst. Recommend 6-12 week follow-up pelvic ultrasound. 2. Status post hysterectomy.
--- NOTE | 2021-10-03 17:47 | PC.NURSE ---
This patient, Lory Rubio, was admitted to 3 Med Surg Room 327-01. Patient/family oriented to hospital policies and general routines including ID bracelet, bed and alarms, visiting hours, pain management, procedures, bathroom and other care routines, personal items, smoking policy, room service/diet, and visiting hours. Information on how to activate the Rapid Response Team has been discussed. Patient/Family are encouraged to report perceived risks to care and to ask questions if they do not understand what they are told or what they should do.
[2021-10-03] MEDS: MORPHINE SULFATE (*CRX) 2 MG/ML INJ IV PUSH ×2 (18:18→23:31)
[2021-10-03] MEDS: LACTATED RINGERS 1,000 ML 100 ML IV CONT (18:19)
[2021-10-03] MEDS: PANTOPRAZOLE SODIUM IV 40 MG VIAL IV PUSH (18:20)
[2021-10-03 18:21] VITALS: BMI 28.3
[2021-10-03 18:46] LABS: Basophils Absolute Auto 0.1 K/mm3 (0.0-0.1); Eosinophils Absolute Auto 0.2 K/mm3 (0-0.3); Eosinophils Percent Auto 1.9 % (0-4.4); Hematocrit 41.2 % (37.0-47.0); Hemoglobin 13.9 g/dL (12.0-15.0); Immature Granulocyte Absolute 0.03 K/mm3 (0.00-0.031); Immature Granulocyte Percent A 0.3 % (0-0.5); Lymphocytes Percent Auto 21.6 % (18.3-44.2); Mean Corpuscular HGB Conc 33.7 g/dl (32-36); Mean Corpuscular Hemoglobin 27.9 pg (26-34); Mean Corpuscular Volume 82.6 fl (80-100); Mean Platelet Volume 9.9 fl (7.4-10.4); Monocytes Absolute Auto 0.7 K/mm3 (0.1-0.6); Monocytes Percent Auto 7.9 % (2.6-8.5); Neutrophils Absolute Auto 5.9 K/mm3 (1.3-6.7); Neutrophils Percent Auto 67.3 % (45.5-73.1); Platelet Count Result 352 k/mm3 (150-375); Red Blood Count 4.99 M/mm3 (4.2-5.4); Red Cell Distribution Width 12.7 % (11.5-14.5); White Blood Count 8.8 K/mm3 (4.5-10.0)
[2021-10-03 18:56] LABS: Alanine Aminotransferase 21 U/L (4-35); Albumin Level 4.7 g/dL (3.5-5.1); Alkaline Phosphatase 96 U/L (38-126); Anion Gap 12 mmol/L (8-16); Aspartate Amino Transferase 22 U/L (14-36); Bilirubin,Total 0.8 mg/dL (0.2-1.3); Blood Urea Nitrogen 16 mg/dL (7-17); Calcium 9.6 mg/dL (8.4-10.2); Carbon Dioxide 20 mmol/L (22-30); Chloride 106 mmol/L (98-107); Estimated CRCL calculation 90 ml/min; Estimated Glomerular Filt Rate > 60; Glucose 92 mg/dL (65-110); Potassium 3.9 mmol/L (3.4-5.0); Sodium 138 mmol/L (137-145)
--- NOTE | 2021-10-03 19:39 | PM.IMHP ---
H&P: HPI History of Present Illness Date/Time: 10/03/21 19:39 Chief Complaint: Epigastric pain Narrative: 41 yo woman presents with Epigastric and RUQ pain that started 5-6 days ago. Patient states this was gradual in onset and does not recall any specific activity or meal that brought this about. She denies fevers, change in bowel habits, hematochezia or melena. Her pain has become more severe to the point where she cannot get any relief. OTC Tylenol and Ibuprofen are not helping. She has a hx of laparoscopic incisional hernia repair 14 months ago, but this pain is more superior to where the hernia was. She had been well healed and was tolerating activity without any significant pain. She also has a hx of laparoscopic right hemicolectomy for polyp, laparoscopic hysterectomy, and laparoscopic cholecystectomy. She saw her PCP Thursday and labs were ordered. She reports normal lab work which included a CBC, CMP, and lipase. She was sent for a STAT CT Abd/Pelvis this afternoon and results showed inflammatory/infectious process near transverse colon concerning for possible diverticulitis. She was directly admitted to the hospital for further workup and treatment. Review of Systems Review of Systems: All systems reviewed & are unremarkable except as noted in HPI and below Constitutional: Constitutional: Denies chills and Denies fever(s) Eyes: Eyes: Denies change in vision ENT: Denies hearing loss, Denies neck pain and Denies sore throat Cardiovascular: Cardiovascular: Denies chest pain and Denies dyspnea Respiratory: Respiratory: Denies cough, Denies dyspnea and Denies wheezing Gastrointestinal: Gastrointestinal: Reports as per HPI Genitourinary: Genitourinary: Denies hematuria and Denies dysuria Musculoskeletal: Musculoskeletal: Denies arthralgias, Denies joint swelling and Denies neck pain Allergic/Immunologic: Allergic/Immunologic: Denies wheezing COUNTS INCLUDE 234 BEDS AT THE [facility] Past Medical History Medical History BMI 30.0-30.9,adult Depression Hypothyroid Melanoma Surgical History Surgical History H/O partial thyroidectomy x2 , 2018 History of incisional hernia repair 08/14/20 Laparoscopic incisional hernia repair with Symbotex mesh, da Richard assisted Hx laparoscopic cholecystectomy 2018, OA Dr. 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 Gender identity (if verbalized by the patient): Female Sexual Orientation (if Verbalized by the Patient): Straight or Heterosexual Spiritual care concerns: No Meds Home Medications and Allergies Home Medications Medication Instructions Recorded Confirmed Type levothyroxine 75 mcg tablet 75 mcg PO DAILY 06/07/20 10/03/21 History phentermine 15 mg PO DAILY 08/03/20 10/03/21 History topiramate 50 mg PO DAILY 08/03/20 10/03/21 History Allergies Allergy/AdvReac Type Severity Reaction Status Date / Time No Known Allergies Allergy Verified 10/03/21 14:41 Exam Const: General: alert; No acute distress Orientation/consciousness: patient oriented x3 Limitations: no limitations HENMT: Head: normocephalic and atraumatic Ears: hearing grossly normal bilaterally General nose exam: Normal external nose present and Normal nares present Mouth: Yes Normal oral and palata
[2021-10-03 21:55] VITALS: BP 108/74; PULSE 79; RESP 18; TEMP 36.7; O2SAT 96
[2021-10-04] MEDS: LEVOTHYROXINE SODIUM 75 MCG TABLET PO (05:36)
[2021-10-04 05:47] VITALS: BP 97/72; PULSE 94; RESP 18; TEMP 36.9; O2SAT 99
[2021-10-04] MEDS: LACTATED RINGERS 1,000 ML 100 ML IV CONT (06:14)
[2021-10-04 07:47] LABS: Hematocrit 38.3 % (37.0-47.0); Hemoglobin 13.1 g/dL (12.0-15.0); Mean Corpuscular HGB Conc 34.2 g/dl (32-36); Mean Corpuscular Hemoglobin 28.6 pg (26-34); Mean Corpuscular Volume 83.6 fl (80-100); Mean Platelet Volume 9.7 fl (7.4-10.4); Platelet Count Result 283 k/mm3 (150-375); Red Blood Count 4.58 M/mm3 (4.2-5.4); Red Cell Distribution Width 12.8 % (11.5-14.5); White Blood Count 5.7 K/mm3 (4.5-10.0)
[2021-10-04 08:01] LABS: Anion Gap 8 mmol/L (8-16); Blood Urea Nitrogen 14 mg/dL (7-17); CRP 3.6 mg/dL (<1.0); Calcium 8.8 mg/dL (8.4-10.2); Carbon Dioxide 19 mmol/L (22-30); Chloride 107 mmol/L (98-107); Estimated CRCL calculation 80 ml/min; Estimated Glomerular Filt Rate > 60; Glucose 91 mg/dL (65-110); Potassium 3.8 mmol/L (3.4-5.0); Sodium 134 mmol/L (137-145)
--- NOTE | 2021-10-04 08:09 | PM.PNGS ---
Progress Note: A&P Assessment and Plan (1) Epigastric pain: Code(s): R10.13 - Epigastric pain Status: Acute Assessment and Plan: CT shows inflammatory/infectious process near transverse colon and stomach. No real signs of inflammation in colon itself and no free air. Discussed possibilities of transverse colon diverticulitis or peptic ulcer disease. Also possible localized inflammatory process involving omentum or less likely carcinomatosis. Will consult GI this AM due to no clear cause for her pains. WBC remains normal and CRP only minimally elevated. Continue IV Zosyn and Protonix. Clear liquids for now until GI evaluates patient. (2) Abnormal CT of the abdomen: Code(s): R93.5 - Abnormal findings on diagnostic imaging of other abdominal regions, including retroperitoneum Status: Acute (3) Mass of left ovary: Code(s): N83.8 - Other noninflammatory disorders of ovary, fallopian tube and broad ligament Status: Acute Assessment and Plan: Will get pelvic u/s today. If left ovarian mass is more concerning for malignancy, then carcinomatosis would be more likely with the omentum. Will await results before working up further. Subjective Subjective Date/Time Seen: 10/04/21 08:09 Interval history: Still having pain. Morphine not helping much. No fevers. No vomiting. Pain constant. Denies using excessive NSAIDs. Exam GI: Inspection: non-distended GI Palp: Yes Tenderness to palpation present (GI) (epigastric and some mild generalized), No Guarding due to palpation present (GI) and No Rebound tenderness present Auscultation: normal bowel sounds Objective Data Vital Signs Vital Signs: Vital Signs - 24 hr 10/03/21 21:55 10/04/21 05:47 Temperature 36.7 C 36.9 C Pulse Rate 79 94 Respiratory Rate 18 18 Blood Pressure 108/74 97/72 L Pulse Oximetry 96 99 Intake/Output Intake/Output: Intake & Output 10/01/21 10/02/21 10/03/21 10/04/21 23:59 23:59 23:59 23:59 Intake Total 50 1170 Balance 50 1170 Meds/Results Medications: Active Medications Generic Name Dose Route Start Last Admin Trade Name Freq PRN Reason Stop Dose Admin Acetaminophen 650 mg 10/03/21 17:44 Acetaminophen 325 Mg Tablet PO Q4H PRN Mild Pain (1-3) or Fever Enoxaparin Sodium 40 mg 10/04/21 09:00 Enoxaparin 40 Mg/0.4 Ml Syringe SUB-Q DAILY [facility] Piperacillin/Tazobactam/Dextrose 3.375 gm in 50 mls @ 100 mls/hr 10/04/21 00:00 10/04/21 06:07 Zosyn 3.375 Gm/D5w 50ml Pm IVPB Infused Q6HR [facility]IAS Infusion Lactated Ringer's 1,000 mls @ 100 mls/hr 10/03/21 17:45 10/04/21 06:14 Lr - Lactated Ringers Iv IV CONT 100 mls/hr .Q10H [facility]IAS Administration Levothyroxine Sodium 75 mcg 10/04/21 06:30 10/04/21 05:36 Levothyroxine Sodium 75 Mcg Tablet PO 75 mcg DAILY@0630 [facility] Administration Morphine Sulfate 4 mg 10/03/21 17:44 Morphine Sulfate (*Crx) 4 Mg/Ml Inj IV PUSH Q2H PRN Pain Rated 7-10 Morphine Sulfate 2 mg 10/03/21 17:44 10/03/21 23:31 Morphine Sulfate (*Crx) 2 Mg/Ml Inj IV PUSH 2 mg Q2H PRN Administration Pain Rated 4-6 Ondansetron HCl 4 mg 10/03/21 17:44 Ondansetron Inj 4 Mg/2 Ml Vial IV PUSH Q6H PRN Nausea And Vomiting Pantoprazole Sodium 40 mg 10/04/21 09:00 Pantoprazole Sodium Iv 40 Mg Vial IV PUSH QAM [facility] Topiramate 50 mg 10/04/21 09:00 Topiramate 25 Mg Tablet PO DAILY [facility] Labs Labs: Laboratory Results - last 24 hr 10/03/21 10/03/21 10/04/21 18:34 18:34 07:33 WBC 8.8 RBC 4.99 Hgb 13.9 Hct 41.2 MCV 82.6 MCH 27.9 MCHC 33.7 RDW 12.7 Plt Count 352 MPV 9.9 Immature Gran % (Auto) 0.3 Neut % (Auto) 67.3 Lymph % (Auto) 21.6 [place] % (Auto) 7.9 Eos % (Auto) 1.9 Baso % (Auto) 1.0 Lymph # (Auto) 1.90 [place] # (Auto) 0.7 H Eos # (Auto) 0.2 Baso # (Auto) 0.1 Abs Immat Gran (auto) 0.03 Absolute Ne
[2021-10-04] MEDS: ENOXAPARIN 40 MG/0.4 ML SYRINGE SUB-Q (09:55)
[2021-10-04] MEDS: TOPIRAMATE 25 MG TABLET 50 MG PO (09:55)
[2021-10-04] MEDS: PANTOPRAZOLE SODIUM IV 40 MG VIAL IV PUSH (09:55)
[2021-10-04] MEDS: ACETAMINOPHEN 325 MG TABLET 650 MG PO (13:08)
--- NOTE | 2021-10-04 13:14 | PCDIET ---
Pt screened in for MST 4. Per EMR, pt is unsure of unintentional weight loss and has a decreased appetite. Past weight history shows that pt weighed approximately 160lb reported on 09/28/20, current weight is approximately 165lb reported on 10/03/21, showing a weight gain of 5lb over the last year. Current nutrition is a clear liquid diet with reported intake of 90%. Pt appears to be tolerating current diet orders with adequate intake. Recommend advancing diet as tolerated by pt. No nutrition needs at this time. Will follow up in 7 days if pt has not been d/c.
[2021-10-04 14:00] VITALS: BP 117/78; PULSE 86; RESP 18; TEMP 36.2; O2SAT 99
--- NOTE | 2021-10-04 14:51 | WPDGICN ---
Assessment and Plan Assessment and plan (1) Epigastric pain: Code(s): R10.13 - Epigastric pain Status: Acute Assessment and Plan: noted abnormal CT scan of colon (inflammation between stomach and colon, diverticulitis, etc) started on abx, on CL diet and iv protonix still symptomatic normal cbc, noted mild elevated CRP in near future may need egd/colonoscopy but will follow clinical course (2) RUQ pain: Code(s): R10.11 - Right upper quadrant pain Status: Acute (3) Abnormal CT of the abdomen: Code(s): R93.5 - Abnormal findings on diagnostic imaging of other abdominal regions, including retroperitoneum Status: Acute Assessment and Plan: reviewed, on antibiotics (4) Lack of appetite: Code(s): R63.0 - Anorexia Status: Acute (5) S/P colon resection: Code(s): Z90.49 - Acquired absence of other specified parts of digestive tract Status: Inactive Assessment and Plan: years ago, she was told that had benign lesion around the right colon GI Consult Note Consult date/time: 10/04/21 14:51 Reason for consult: epigastric/ruq pain HPI: Lory Rubio is a 41 year old female with hx of laparoscopic right hemicolectomy for benign lesion about 12 years ago and had subsequent colonoscopies x3 last one about 2 years ago, laparoscopic hysterectomy and laparoscopic cholecystectomy, she also had EGD about 3 years ago. She came here with about 6 days of new onset pain in epigastric/RUQ site that has not gone away, at some point got quite severe, she saw her PCP and labs were unremarkable (cbc, cmp), crp was elevated, finally CT Abd/Pelvis showed inflammatory/infectious process near transverse colon concerning for possible diverticulitis, soft tissue stranding in the greater omentum between the stomach and transverse colon. The differential diagnosis includes inflammation/infection such as transverse colon diverticulitis and less likely peritoneal carcinomatosis. 4.5 cm left ovarian mass, which may be a hemorrhagic cyst or much less likely neoplasm (pelvic ultrasound confirmed that was hemorrhagic cyst). She was started on iv antibiotics and protonix, she is still complaining of pain and using morphine but not helping much. She has not been eating much because lack of appetite. Denies blood in stools, no fever. Denies previous history of diverticulitis. Review of Systems Constitutional: Constitutional: Denies chills Eyes: Eyes: Denies blurry vision ENT: Reports Normal hearing present Cardiovascular: Cardiovascular: Denies chest pain Respiratory: Respiratory: Denies dyspnea Gastrointestinal: Gastrointestinal: Reports abdominal pain Genitourinary: Genitourinary: Denies hematuria Musculoskeletal: Musculoskeletal: Denies neck pain Integumentary/Breasts: Skin/Breast: Denies dry skin Neurologic: Denies headache(s) Psychiatric: Psychiatric: Denies behavioral changes [facility] Past Medical History Medical History (Updated 10/04/21 @ 14:58 by Braydon Fam MD) BMI 30.0-30.9,adult Depression Hypothyroid Lack of appetite Melanoma Surgical History Surgical History (Updated 10/04/21 @ 14:58 by Braydon Fam MD) H/O partial thyroidectomy x2 , 2018 History of incisional hernia repair 08/14/20 Laparoscopic incisional hernia repair with Symbotex mesh, da Richard assisted Hx laparoscopic cholecystectomy 2018, OA Dr. Bunch S/P colon resection right, benign tumor removal Family History Family History Sibling Family history of allergic disorder Mother Family history of hypothyroidism Hypertension Grandparent Diabetes mellitus Grandparent Lymphoma Other Breast cancer Other Family history of malignant neoplasm No family history of malignant neoplasm Social History Social History Sm
[2021-10-04 20:00] VITALS: PULSE 86; RESP 16; O2SAT 98
[2021-10-04 22:00] VITALS: BP 118/75; PULSE 86; RESP 16; TEMP 36.2; O2SAT 98
[2021-10-05 06:00] VITALS: BP 112/74; PULSE 79; RESP 18; TEMP 36.1; O2SAT 99
[2021-10-05 06:38] LABS: Hematocrit 36.9 % (37.0-47.0); Hemoglobin 12.6 g/dL (12.0-15.0); Mean Corpuscular HGB Conc 34.1 g/dl (32-36); Mean Corpuscular Hemoglobin 28.3 pg (26-34); Mean Corpuscular Volume 82.9 fl (80-100); Mean Platelet Volume 9.6 fl (7.4-10.4); Platelet Count Result 298 k/mm3 (150-375); Red Blood Count 4.45 M/mm3 (4.2-5.4); Red Cell Distribution Width 12.7 % (11.5-14.5); White Blood Count 5.4 K/mm3 (4.5-10.0)
[2021-10-05] MEDS: LEVOTHYROXINE SODIUM 75 MCG TABLET PO (06:46)
[2021-10-05 06:59] LABS: Anion Gap 11 mmol/L (8-16); Blood Urea Nitrogen 7 mg/dL (7-17); CRP 2.5 mg/dL (<1.0); Calcium 8.9 mg/dL (8.4-10.2); Carbon Dioxide 24 mmol/L (22-30); Chloride 103 mmol/L (98-107); Estimated CRCL calculation 80 ml/min; Estimated Glomerular Filt Rate > 60; Glucose 97 mg/dL (65-110); Potassium 3.8 mmol/L (3.4-5.0); Sodium 138 mmol/L (137-145)
[2021-10-05 08:00] VITALS: PULSE 79; RESP 18; O2SAT 99
[2021-10-05] MEDS: TOPIRAMATE 25 MG TABLET 50 MG PO (09:52)
[2021-10-05] MEDS: PANTOPRAZOLE 40 MG TABLET PO (09:53)
--- NOTE | 2021-10-05 10:50 | PM.DS ---
DS: Admitting Diagnosis Discharge Date 10/05/2021 Admitting Diagnosis colonic diverticulitis DS: Discharge Diagnosis Discharge Diagnosis (1) Diverticulitis large intestine: Code(s): K57.32 - Diverticulitis of large intestine without perforation or abscess without bleeding Status: Acute Assessment and Plan: exam much improved, low fiber diet, home c po abx, analgesia, repeat CT in 2 wks, plan for endoscopy in 3-4 wks per GI, f/u Dr. Hendricks 2 wks (2) Mass of left ovary: Code(s): N83.8 - Other noninflammatory disorders of ovary, fallopian tube and broad ligament Status: Acute Assessment and Plan: looks to be cyst, will need repeat imaging, f/u PCP and [employer] DS: Summary Hospital Course Reason for hospitalization: abdominal pain, transverse colon diverticulitis Hospital Course: Pt is a 41 y/o F presenting as direct admit c 1 wk h/o severe epigastric abd pain. Workup, including CT, significant for likely transverse colon diverticulitis. Pt admitted and started on IV abx. Over hospital coursce, pt felt better and diet slowly advanced. At time of dc, pt seferino low fiber diet s issue and abd exam benign. Pt will be dc'd c po abx and analgesia. Status at Discharge Functional status at discharge: independent ambulation Overall status at discharge: patient is progressing back to baseline Time Spent with Patient Time attestation: Total time spent providing and/or coordinating discharge services: Time spent: Less than 30 minutes Exam Const: General: cooperative, comfortable and no acute distress Nutritional Appearance: overweight Orientation/consciousness: patient oriented x3 Limitations: no limitations Resp: Effort & Inspection: normal respiratory effort Auscultation: clear to auscultation bilaterally Cardio: Rate: regular rate Rhythm: regular rhythm GI: Inspection: normal to inspection and non-distended GI Palp: Yes Soft to palpation, Yes Tenderness to palpation present (GI), No Guarding due to palpation present (GI) and No Rigid due to palpation Other: mod TTP epigastrium DS: Data Data Completed and Pending Labs on day of discharge: Labs from last 24 hours 10/05/21 10/05/21 06:19 06:19 WBC 5.4 RBC 4.45 Hgb 12.6 Hct 36.9 L MCV 82.9 MCH 28.3 MCHC 34.1 RDW 12.7 Plt Count 298 MPV 9.6 Sodium 138 Potassium 3.8 Chloride 103 Carbon Dioxide 24 Anion Gap 11 BUN 7 D Creatinine 0.80 Estim Creat Clear Calc 80 Estimated GFR > 60 Glucose 97 Calcium 8.9 C-Reactive Protein 2.5 H Discharge Plan Discharge Attending physician on discharge: Devon Hendricks Consulting providers: Braydon Fam Discharging Clinician: Regi Palomares Anticipated Discharge Date/Time: 10/05/21 10:45 Patient Disposition: Home, Self-Care Activity: as tolerated Diet: low fiber Patient Instructions: Antibiotic Form Stand Alone Forms: General Discharge Information Follow-up/Referrals: Devon Hendricks, [Physician] - 2 Weeks Discharge Medications: New hydrocodone-acetaminophen 5-325 mg tablet 1 tablet PO Q6H PRN (Reason: pain) Qty: 20 RF: 0 metronidazole 500 mg tablet 500 mg PO Q8H Qty: 15 RF: 0 ciprofloxacin HCl [Cipro] 500 mg tablet 500 mg PO Q12H Qty: 10 RF: 0 Continued levothyroxine 75 mcg tablet 75 mcg PO DAILY RF: 0 phentermine 15 mg capsule 15 mg PO DAILY RF: 0 topiramate 50 mg tablet 50 mg PO DAILY RF: 0 Date of admission: 10/03/21 17:29 Primary Care Provider: Kristal,Breezy Bryant Admitting Provider: Devon Hendricks Attending physician on admission: Devon Hendricks Condition: Stable
--- NOTE | 2021-10-05 10:52 | WPDGIPROGNO ---
Progress Note: A&P Assessment and Plan (1) Abnormal CT of the abdomen: Code(s): R93.5 - Abnormal findings on diagnostic imaging of other abdominal regions, including retroperitoneum Status: Acute Assessment and Plan: still with pain but tolerating diet, no fever or leukocytosis crp elevated but came down plan to go home with oral antibiotics, repeat CT scan a/p in 2 weeks we will do EGD and colonoscopy in 3-4 weeks as outpatient (2) RUQ pain: Code(s): R10.11 - Right upper quadrant pain Status: Acute (3) Epigastric pain: Code(s): R10.13 - Epigastric pain Status: Acute (4) Diverticulitis large intestine: Code(s): K57.32 - Diverticulitis of large intestine without perforation or abscess without bleeding Status: Acute Assessment and Plan: it is in differential diagnosis colonoscopy 3-4 weeks (she had remote right hemicolectomy for large benign tumor ) Subjective Date/time seen: 10/05/21 10:52 Interval history: still with similar pain but tolerating diet, no fever Review of Systems Review of Systems: All systems reviewed & are unremarkable except as noted in HPI and below Exam Const: General: comfortable and no acute distress HENMT: General nose exam: Normal nares present Eyes: General: appearance normal, both eyes and all related structures Neck: Neck: no JVD Resp: Auscultation: clear to auscultation bilaterally Cardio: Rate: regular rate Rhythm: regular rhythm GI: Inspection: non-distended GI Palp: Yes Soft to palpation and Yes Tenderness to palpation present (GI) (ruq and epigastric, no rebound) Auscultation: normal bowel sounds Skin: General skin exam: normal color Neuro: Speech: normal speech Motor exam (neuro): Normal motor muscle tone present throughout Extrem: General: normal to inspection Psych: Mental Status: mental status grossly normal Objective Data Vital Signs Vital Signs: Vital Signs - 24 hr 10/04/21 14:00 10/04/21 20:00 10/04/21 22:00 Temperature 97.2 F L 97.2 F L Pulse Rate 86 86 86 Respiratory Rate 18 16 16 Blood Pressure 117/78 118/75 Pulse Oximetry 99 98 98 10/05/21 06:00 10/05/21 08:00 Temperature 96.9 F L Pulse Rate 79 79 Respiratory Rate 18 18 Blood Pressure 112/74 Pulse Oximetry 99 99 Intake/Output Intake/Output: Intake & Output 10/02/21 10/03/21 10/04/21 10/05/21 23:59 23:59 23:59 23:59 Intake Total 50 3540 490 Balance 50 3540 490 Meds/Results Medications: Active Medications Generic Name Dose Route Start Last Admin Trade Name Freq PRN Reason Stop Dose Admin Acetaminophen 650 mg 10/03/21 17:44 10/04/21 13:08 Acetaminophen 325 Mg Tablet PO 650 mg Q4H PRN Administration Mild Pain (1-3) or Fever Hydrocodone Bitart/Acetaminophen 1 tab 10/04/21 14:33 Hydrocodone/Acetaminophen (*Crx) 7.5-325 Mg Tablet PO Q4H PRN Pain Rated 7-10 Enoxaparin Sodium 40 mg 10/04/21 09:00 10/05/21 09:53 Enoxaparin 40 Mg/0.4 Ml Syringe SUB-Q Not Given DAILY [facility] Piperacillin/Tazobactam/Dextrose 3.375 gm in 50 mls @ 100 mls/hr 10/04/21 00:00 10/05/21 06:46 Zosyn 3.375 Gm/D5w 50ml Pm IVPB 100 mls/hr Q6HR ELIAS Administration Ketorolac Tromethamine 30 mg 10/04/21 14:32 Ketorolac 30 Mg/Ml Vial (*Bkc) IV PUSH Q6H PRN Pain Rated 4-6 Levothyroxine Sodium 75 mcg 10/04/21 06:30 10/05/21 06:46 Levothyroxine Sodium 75 Mcg Tablet PO 75 mcg DAILY@0630 [facility] Administration Ondansetron HCl 4 mg 10/03/21 17:44 Ondansetron Inj 4 Mg/2 Ml Vial IV PUSH Q6H PRN Nausea And Vomiting Pantoprazole Sodium 40 mg 10/05/21 09:00 10/05/21 09:53 Pantoprazole 40 Mg Tablet PO 40 mg QAM [facility]IAS Administration Topiramate 50 mg 10/04/21 09:00 10/05/21 09:52 Topiramate 25 Mg Tablet PO 50 mg DAILY [facility] Administration Radiology Results: ITS Impressions Pelvic/Transvag US 10/04/21 09:59 IMPRESSION: 1. 3.1 cm compl
== END 2021-10-05 12:00 | disposition home or self-care (01) ==
PROVIDERS: Admitting Provider Surgery; PCP Internal Medicine; Visit Provider Surgery
DX: K57.32 Diverticulitis of large intestine without perforation or abscess without bleeding (principal); R10.13 Epigastric pain; N83.202 Unspecified ovarian cyst, left side; R10.11 Right upper quadrant pain; R63.0 Anorexia; E89.0 Postprocedural hypothyroidism; F32.9 Major depressive disorder, single episode, unspecified; Z90.49 Acquired absence of other specified parts of digestive tract
CPT/HCPCS: 36415; 74177; 76830; 76856; 80048; 80053; 85025; 85027; 86140; 96361; 96365; 96372; 96374; 96375; A9270; C9113; G0378; G0379; J1650; J2270; J2543; J7120; Q9967

== ENCOUNTER 2021-10-25 08:38 | Outpatient (CLI) | payer OTHER, SELFPAY ==
--- NOTE | ~2021-10-25 | CT_ITS ---
EXAMINATION: CT abdomen pelvis w con DATE: 10/25/2021 08:56 INDICATION: TECHNIQUE: Computed tomography (CT) of the abdomen and pelvis was performed with 100 cc Omnipaque 350 intravenous contrast. The dose-length product was 576.63 mGy-cm. Automated exposure control and iter ative reconstruction technique were employed. COMPARISON: CT dated 10/03/2021. FINDINGS: Lung bases are unremarkable. Cardiomegaly. Small hiatal hernia. No significant pleural or p ericardial effusion. There are changes of ventral hernia repair. There is an anastomosis of the small bowel in the right p param. Status post cholecystectomy. The liver, pancreas, adrenal glands and kidneys are unremarkable. There are calcified granulomas of the spleen. Nonobstructive bowel gas pattern. There are small bone islands in the left femur. No acute osseous abnormality. There has been interval resolution of soft tissue stranding in the greater omentum. There has been significantly decreased size of left ovarian cyst compared with prior examination. No abnormal free air or free fluid. Normal appendix. IMPRESSION: 1. No acute abdominal abnormality. Reviewed, dictated and finalized at location A. [facility]
== END 2021-10-25 08:39 | disposition home or self-care (01) ==
LOC: ANHIMG 08:41
PROVIDERS: PCP Internal Medicine; Visit Provider Surgery
DX: R10.13 Epigastric pain (principal); R93.5 Abnormal findings on diagnostic imaging of other abdominal regions, including retroperitoneum
CPT/HCPCS: 74177; Q9967

== ENCOUNTER 2021-12-23 00:20 | Day surgery (SDC) | payer OTHER, SELFPAY ==
[2021-12-09 14:01] VITALS: BMI 30.8
[2021-12-23 06:58] VITALS: BP 126/87; PULSE 116; RESP 20; TEMP 37.2; O2SAT 100
[2021-12-23] MEDS: LACTATED RINGERS 1,000 ML 150 ML IV CONT (07:14)
--- NOTE | 2021-12-23 07:41 | WPDANESEPPF ---
Anes - Initial Pre Proc Eval Procedure: Operation Date: 12/23/21 08:00 Proposed Procedures p Esophagogastroduodenoscopy & Colonoscopy - Braydon Fam MD Date/Time: 12/23/21 07:41 Surgeon: Braydon Fam MD Pre Op Diagnosis: epigastric pain, diverticulitis Patient Data Age: 41 Gender: F Height: 1.6 m Weight: 78.7 kg Last Vital Signs Temp 98.9 F 12/23/21 06:58 Pulse 116 H 12/23/21 06:58 Resp 20 12/23/21 06:58 BP 126/87 12/23/21 06:58 Pulse Ox 100 12/23/21 06:58 Allergies Allergy/AdvReac Type Severity Reaction Status Date / Time No Known Allergies Allergy Verified 12/23/21 06:57 Home Medications Medication Instructions Recorded Confirmed Type levothyroxine 75 mcg tablet 75 mcg PO DAILY 06/07/20 12/09/21 History phentermine 15 mg PO DAILY 08/03/20 12/09/21 History topiramate 50 mg PO DAILY 08/03/20 12/09/21 History Patient hx anesthesia problems: none Family hx anesthesia problems: none Results Review: All pre-operative results and documents have been reviewed as part of the pre-operative evaluation. [facility] Past Medical History Medical History (Updated 12/20/21 @ 15:51 by Pavel Escoto DO) Anemia BMI 30.0-30.9,adult Depression Hypothyroid Lack of appetite Melanoma PONV (postoperative nausea and vomiting) Surgical History Surgical History H/O partial thyroidectomy x2 , 2018 History of incisional hernia repair 08/14/20 Laparoscopic incisional hernia repair with Symbotex mesh, da Richard assisted Hx laparoscopic cholecystectomy 2018, OA Dr. 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 Gender identity (if verbalized by the patient): Female Sexual Orientation (if Verbalized by the Patient): Straight or Heterosexual Spiritual care concerns: No Anes - Eval Final PreProcedure Day of Procedure 12/23/21 07:41 Patient weight: obese Heart: regular rate and rhythm Lungs: clear to auscultation Airway: Mallampati scale class II Neurological: alert and oriented Last oral intake: >/= 8 hours ASA classification: III Emergent: no Anesthetic plan: proceed Anesthesia type and monitoring: general and standard monitoring Results Review: All pre-operative results and documents have been reviewed as part of the pre-operative evaluation. Informed Consent: The patient's anesthetic plan and its attendant risks and benefits were discussed with the patient/family/POA. Questions were solicited and answers provided to the satisfaction of the patient/family/POA.
--- NOTE | 2021-12-23 07:49 | PM.HPGS ---
History of Present Illness History of Present Illness Consent: Risks, benefits, and alternatives have been discussed and questions answered. Patient agrees to proceed with procedure. Chief complaint: epigastric pain, diverticulitis Narrative: Lory Rubio is a 41 year old female admitted 09/2021 with abdominal pain, CT scan showed possible inflammatory process ? diverticulitis treated with abx, she had previous Rt hemicolectomy, repeat CT scan was unremarkable. Recently started having pain again and she is here for egd and colonoscopy, she also has seen Dr Hendricks. Review of Systems Constitutional: Constitutional: Denies headache(s) and Denies weakness Eyes: Eyes: Denies blurry vision ENT: Reports Normal hearing present, Denies headache(s) and Denies neck pain Cardiovascular: Cardiovascular: Denies chest pain and Denies dyspnea Respiratory: Respiratory: Denies dyspnea Gastrointestinal: Gastrointestinal: Reports no additional gastrointestinal complaints Genitourinary: Genitourinary: Denies dysuria Musculoskeletal: Musculoskeletal: Denies neck pain Integumentary/Breasts: Skin/Breast: Denies dry skin Neurologic: Reports Normal hearing present, Denies headache(s) and Denies weakness Psychiatric: Psychiatric: Denies anxiety Endocrine: Endocrine: Denies change in body appearance Hematologic/Lymphatic: Hematologic/Lymphatic: Denies easy bleeding Allergic/Immunologic: Allergic/Immunologic: Denies urticaria PMFSH Past Medical History Medical History (Updated 12/20/21 @ 15:51 by Pavel Escoto DO) Anemia BMI 30.0-30.9,adult Depression Hypothyroid Lack of appetite Melanoma PONV (postoperative nausea and vomiting) Surgical History Surgical History H/O partial thyroidectomy x2 , 2018 History of incisional hernia repair 08/14/20 Laparoscopic incisional hernia repair with Symbotex mesh, da Richard assisted Hx laparoscopic cholecystectomy 2018, OA Dr. 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 Gender identity (if verbalized by the patient): Female Sexual Orientation (if Verbalized by the Patient): Straight or Heterosexual Spiritual care concerns: No Meds Home Medications and Allergies Home Medications Medication Instructions Recorded Confirmed Type levothyroxine 75 mcg tablet 75 mcg PO DAILY 06/07/20 12/09/21 History phentermine 15 mg PO DAILY 08/03/20 12/09/21 History topiramate 50 mg PO DAILY 08/03/20 12/09/21 History Allergies Allergy/AdvReac Type Severity Reaction Status Date / Time No Known Allergies Allergy Verified 12/23/21 06:57 Vital Signs Vital Signs - 24 hr 12/23/21 06:58 Temperature 98.9 F Pulse Rate 116 H Respiratory Rate 20 Blood Pressure 126/87 Pulse Oximetry 100 Exam Const: General: comfortable and no acute distress HENMT: General nose exam: Normal nares present Eyes: General: appearance normal, both eyes and all related structures Neck: Neck: no JVD Resp: Auscultation: clear to auscultation bilaterally Cardio: Rate: regular rate Rhythm: regular rhythm GI: Inspection: non-distended GI Palp: Yes Soft to palpation Skin: General skin exam: normal color Neuro: General: gait normal Speech: normal spee
--- NOTE | 2021-12-23 08:07 | SUR.OPER ---
EGD: [id number] COLON: [id number]
[2021-12-23 08:20] VITALS: BP 126/90; PULSE 99; RESP 22; O2SAT 100
[2021-12-23 08:30] VITALS: BP 135/99; PULSE 91; RESP 20; O2SAT 100
[2021-12-23 08:40] VITALS: BP 139/100; PULSE 93; RESP 22; O2SAT 100
--- NOTE | 2021-12-23 12:04 | SUR.PHASEII ---
PT c/o same abdomen pain that brought her here for the colonoscopy and egd, DR. Herrera was notified and spoke with the pt and spouse for the second time, she was instructed to make a follow up appointment with Dr. Hendricks who had recently performed surgery on her.
== END 2021-12-23 08:55 | disposition home or self-care (01) ==
PROVIDERS: PCP Internal Medicine; Visit Provider Internal Medicine Gastroenterology
PROC: 0DJ08ZZ Inspection of Upper Intestinal Tract, Via Natural or Artificial Opening Endoscopic (ICD-10-PCS; CPT 43235; principal; 2021-12-23 08:00)
DX: R10.31 Right lower quadrant pain (principal); K64.8 Other hemorrhoids; K44.9 Diaphragmatic hernia without obstruction or gangrene; E89.0 Postprocedural hypothyroidism; Z90.49 Acquired absence of other specified parts of digestive tract; E66.9 Obesity, unspecified; Z68.30 Body mass index [BMI] 30.0-30.9, adult
CPT/HCPCS: 45378; 43239; 88305; J2704; J7120

== ENCOUNTER 2022-01-01 07:32 | Outpatient (CLI) | payer OTHER, SELFPAY ==
--- NOTE | ~2022-01-01 | MR_ITS ---
EXAMINATION: MR abdomen wo/w con INDICATION: Abdominal pain TECHNIQUE: Coronal SSFSE ARC, WATER:coronal LAVA-FLEX, Coronal 2D FIESTA FatSat, Axial SSFSE BH ARC, Axial 3D DualEcho BH, Axial SSFSE-IR, Axial DWI b=500, Axial 2D FIESTA FatSat, pre and dynamic postco ntrast Axial LAVA ARC, postcontrast Coronal In and Opposed phase LAVA FLEX COMPARISON: Prior CT scans dated 10/25/2021 10/03/2021 CONTRAST: Multihance, 16 cc FINDINGS: The gallbladder is surgically absent. There is mild atelectasis bases. The heart size is no rmal. There is an 11 mm cyst in the left hepatic lobe. Cysts of the right kidney measure up to 10 mm. The left kidney is unremarkable. There is a 10 mm adenoma of the right adrenal gland. The left adren al gland is normal. The spleen is unremarkable. There are no pathologically enlarged abdominal lymph nodes. No dilated loops of bowel are evident. There is no persistent omental thickening in the area p reviously described on CT. There is no abnormal enhancement after contrast administration. Changes of mesh ventral hernia repair are noted. IMPRESSION: 1. No MRI correlate for the patient's symptoms. Reviewed, dictated and finalized at location A.
[2022-01-01 08:02] LABS: Estimated Glomerular Filt Rate > 60
== END 2022-01-01 07:33 | disposition home or self-care (01) ==
PROVIDERS: PCP Internal Medicine; Visit Provider Internal Medicine Gastroenterology
DX: R93.5 Abnormal findings on diagnostic imaging of other abdominal regions, including retroperitoneum (principal)
CPT/HCPCS: 74183; A9577

== ENCOUNTER 2022-01-03 01:01 | Day surgery (SDC) | payer OTHER, SELFPAY ==
[2021-12-30 15:00] VITALS: BMI 31.1
--- NOTE | 2021-12-30 15:15 | SUR.PREOP ---
Report to the Outpatient Waiting Room, entrance under the green pavilion located off [facility], at time __0600 on date _01/03/22 . OR Time: . - You and your visitor will be asked a series of questions to screen for COVID 19 for your protection. - Only one visitor is allowed at this time. - The patient visitor is requested to leave or wait in car when not with patient. - A mask is required within the hospital. Patients may have clear liquids (water, carbonated beverages, clear teas, apple juice) until 3 hours prior to surgery with a maximum of 20 ounces. - No food from midnight until time of surgery before 0430am - Infants may have breast milk until 4 hours before surgery, formula 6 hours prior to surgery. - Children will be allowed to drink immediately following surgery. If applicable, please bring a bottle or sippy cup to assist with drinking. Juice, water, soda, and popsicles are readily available. For infants on formula, please bring formula the day of surgery. Pacifiers are allowed. Take the following medications with a SIP of water the morning of surgery: _Levothyroxine Medications to discontinue per physician n/a Date to take last dose Please no make-up, nail pakistani, hairspray, perfume, deodorant, or body powder the day of surgery. No jewelry (including any body piercings) or valuables the day of surgery, leave them at home. Please take a shower or bath the night before, or the morning of, surgery with an antibacterial soap. Wear comfortable, loose fitting clothing. Children are encouraged to wear pajamas. - Jewelry must be removed prior to entering the operating room. Rings and piercings that are not removed may be cut off. - The hospital will not accept responsibility for valuables. - Please leave all valuables, including medications, at home the day of surgery. If you are going home after surgery, a licensed tow car driver must drive you home. - NO public transportation without another adult. - We recommend that an adult stay with you for 24 hours following discharge. - We also recommend that you do not drive, make important decision, drink alcoholic beverages, or take any drugs that were not prescribed by your health care provider for at least 24 hours after your discharge time. For Pediatric surgeries, we recommend two adults accompany the child home (only one inside the building at this time). Follow any additional instructions given to you from your surgeon. If you or anyone in your household have experienced Covid symptoms in the past week, please notify your surgeon or the nurse liaison at the phone number below for possible testing. Telephone instructions given to ___patient and asked if any additional questions and then verbalized understanding. Patient advised to call surgeon office or pre surgery nurse liaison [phone] if any additional questions.
--- NOTE | 2022-01-02 13:05 | P.PNAN_ITS ---
Anes - Initial Pre Proc Eval Procedure: Operation Date: 01/03/22 07:30 Proposed Procedures p Laparoscopic Bilateral Salpingo Oophorectomy - Suzanna Macias MD Date/Time: 01/02/22 13:05 Surgeon: Suzanna Macias MD Pre Op Diagnosis: pelvic pain Patient Data Age: 41 Gender: F Height: 1.6 m Weight: 79.83 kg Allergies Allergy/AdvReac Type Severity Reaction Status Date / Time No Known Allergies Allergy Verified 12/23/21 06:57 Home Medications Medication Instructions Recorded Confirmed Type levothyroxine 75 mcg tablet 75 mcg PO DAILY 06/07/20 12/30/21 History Patient hx anesthesia problems: post op nausea/vomiting Family hx anesthesia problems: none Results Review: All pre-operative results and documents have been reviewed as part of the pre-operative evaluation. [facility] Past Medical History Medical History (Updated 12/23/21 @ 08:27 by Braydon Fam MD) Anemia BMI 30.0-30.9,adult Depression Hypothyroid Lack of appetite Melanoma PONV (postoperative nausea and vomiting) RLQ abdominal pain Surgical History Surgical History H/O partial thyroidectomy x2 , 2018 History of incisional hernia repair 08/14/20 Laparoscopic incisional hernia repair with Symbotex mesh, da Richard assisted Hx laparoscopic cholecystectomy 2018, OA Dr. 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 Gender identity (if verbalized by the patient): Female Sexual Orientation (if Verbalized by the Patient): Straight or Heterosexual Spiritual care concerns: No Anes - Eval Final PreProcedure Day of Procedure 01/02/22 13:05 Patient weight: obese Heart: regular rate and rhythm Lungs: clear to auscultation Airway: Mallampati scale class II Neurological: alert and oriented Last oral intake: >/= 8 hours ASA classification: III Emergent: no Anesthetic plan: proceed Anesthesia type and monitoring: general ETT and standard monitoring Results Review: All pre-operative results and documents have been reviewed as part of the pre-operative evaluation. Informed Consent: The patient's anesthetic plan and its attendant risks and benefits were discussed with the patient/family/POA. Questions were solicited and answers provided to the satisfaction of the patient/family/POA.
[2022-01-03] VITALS (11 sets, daily range): BP systolic 101–129; BP diastolic 69–90; PULSE 61–86; RESP 12–16; TEMP 36.1–36.5; O2SAT 97–100
[2022-01-03] MEDS: LACTATED RINGERS 1,000 ML 30 ML IV CONT ×3 (06:45→10:06)
[2022-01-03] MEDS: SCOPOLAMINE 1.5 MG PATCH TRANSDERM (07:00)
[2022-01-03] MEDS: ACETAMINOPHEN 500 MG TABLET 1000 MG PO (07:00)
[2022-01-03] MEDS: KETOROLAC 15 MG/ML VIAL (*BKC) IV PUSH (07:07)
--- NOTE | 2022-01-03 07:09 | WPDHPUPDATE1 ---
History and Physical Update Update Date/Time: 01/03/22 07:09 History and Physical has been reviewed, including an updated exam of the patient. There are NO changes in the patient's condition. Risks, benefits, and alternatives have been discussed and questions answered. Patient agrees to proceed with procedure.
--- NOTE | 2022-01-03 09:03 | W.PM.PROC2 ---
Procedure Note - Detailed Date of Procedure 01/03/22 Pre-op Diagnosis pelvic pain, Abdominal pain Post-op Diagnosis Same ( abdominal and pelvic adhesions) Procedure Performed laparoscopic BSO, adhesiolysis- 30 minutes Surgeon Suzanna Macias MD Anesthesia General Indications Pelvic pain /abdominal pain Findings there were dense adhesions between the left ovary and the pericolic fat of the sigmoid colon. There was adhesions between the small bowel and the anterior abdominal wall the area of the hernia mesh. The right ovary was normal. The the left ovary itself appeared normal. Tubes appeared normal. Description of Procedure The patient was taken to the operating room. She was prepped and draped in the dorsal lithotomy position after induction general anesthesia. A 5 mm incision was made with a scalpel on the abdominal skin in the left upper quadrant of the abdomen. A 5 mm trocar was inserted into the intra-abdominal cavity under direct visualization the scope. In the same fashion a 11 mm left lower quadrant trocar was inserted and a 11 mm infraumbilical trocar was inserted. Adhesiolysis was performed in the area of the left sigmoid colon and the left ovary. This required 30 minutes blunt and sharp dissection using cautery as well to temporize bleeding. The bilateral tubes and ovaries were removed. This was done with LigaSure cautery and careful dissection. There were taken of the left lower quadrant trocar site. the ureter on the left side was identified and found to be safely out of way of the dissection. The pelvis was irrigated. The pneumoperitoneum was reduced. The trocars were removed. Skin was closed with subcuticular 4 micro. The patient's incisions were covered with Dermabond. She was taken recovery room in stable condition. Sponge lap and needle counts were correct x2. Estimated Blood Loss 35 Drains No Packing No Pathology Yes Complications No immediate complications Condition Stable Disposition Same day
[2022-01-03] MEDS: fentaNYL CITRATE INJ (*CRX) 100 MCG/2 ML VIAL 25 MCG IV PUSH ×8 (09:37→10:03)
[2022-01-03] MEDS: oxyCODONE HCL (*CRX) 5 MG TAB IR PO (10:43)
== END 2022-01-03 11:45 | disposition home or self-care (01) ==
PROVIDERS: PCP Internal Medicine; Visit Provider Obstetrics & Gynecology
PROC: (CPT 49320; principal; 2022-01-03 07:30)
DX: R10.2 Pelvic and perineal pain (principal); N73.6 Female pelvic peritoneal adhesions (postinfective); N83.292 Other ovarian cyst, left side; N83.291 Other ovarian cyst, right side; E89.0 Postprocedural hypothyroidism; Z90.49 Acquired absence of other specified parts of digestive tract; E66.9 Obesity, unspecified; Z68.30 Body mass index [BMI] 30.0-30.9, adult
CPT/HCPCS: 58661; 88305; A9270; J1100; J1885; J2250; J2405; J2704; J3010; J7030; J7120

== ENCOUNTER → 2022-02-05 11:41 | Outpatient (CLI) | payer OTHER, SELFPAY ==
--- NOTE | ~2022-02-05 | US_ITS ---
EXAMINATION: US right upper quadrant DATE: 02/05/2022 12:00 INDICATION: Abnormal liver function tests. TECHNIQUE: Multiple grayscale and Doppler ultrasound images of the abdomen were obtained. COMPARISON: Abdomen MRI 01/01/2022 FINDINGS: Abdominal aorta is normal in caliber. The visualized portions of the head, body, and tail o f the pancreas are normal. There is diffuse hepatic steatosis. There is normal flow in main portal ve in. The gallbladder is absent. The common duct is normal and measures 4 mm. IMPRESSION: 1. Diffuse hepatic steatosis. Reviewed, dictated and finalized at location B.
== END ==
PROVIDERS: PCP Internal Medicine; Visit Provider Obstetrics & Gynecology
DX: K76.0 Fatty (change of) liver, not elsewhere classified (principal)
CPT/HCPCS: 76705

== ENCOUNTER 2022-09-10 10:32 | Outpatient (CLI) | payer OTHER, SELFPAY ==
--- NOTE | ~2022-09-10 | CT_ITS ---
CT Abdomen and Pelvis with contrast. History: Abdominal pain. Spiral CT of the abdomen and pelvis was performed after the administration of intravenous contrast. 1 00 cc of Omnipaque 350 was administered intravenously without complication. Dose reduction technique was used on this scan by utilizing automated exposure control and iterative reconstruction technique. The dose-length product (DLP) was 490.29 mGy-cm. COMPARISON: 10/25/2021 Findings: Scans through the lung bases demonstrate mild atelectatic change. The liver, spleen, pancreas, left adrenal gland, and kidneys are within normal limits. Cholecystectom y clips noted. Stable 1 cm right adrenal nodule. No evidence of aortic aneurysm. No lymphadenopathy is seen. There is no evidence of bowel obstruction. There is no evidence to suggest acute appendicitis or dive rticulitis. Images through the pelvis were performed. Urinary bladder unremarkable. No pelvic mass identified. No ascites is seen. Impression: No acute abnormality. Stable 1 cm right adrenal nodule. No further follow-up required for this incidental finding. Reviewed, dictated and finalized at [facility]. TECHNICIAN Impression: No acute abnormality. Stable 1 cm right adrenal nodule. No further follow-up required for this incide ntal finding.
[2022-09-10 10:52] LABS: Estimated Glomerular Filt Rate > 60
== END 2022-09-10 10:33 | disposition home or self-care (01) ==
PROVIDERS: PCP Physician Assistant Medical; Visit Provider Nurse Practitioner Family
DX: R10.9 Unspecified abdominal pain (principal); D35.01 Benign neoplasm of right adrenal gland
CPT/HCPCS: 74177; Q9967

== ENCOUNTER → 2022-10-08 10:06 | Outpatient (CLI) | payer OTHER, SELFPAY ==
--- NOTE | ~2022-10-08 | MM_ITS ---
EXAMINATION: MM screening demetrio BI w wagner HISTORY: Screening mammogram TECHNIQUE: Craniocaudal and mediolateral oblique 3-D tomosynthesis images were obtained and synthetic 2-D images were generated. CAD analysis was submitted and interpreted. COMPARISON: 07/05/2021 bilateral screening mammogram 07/25/2020 Left diagnostic mammogram 07/02/2020 bilateral screening mammogram BREAST PARENCHYMAL COMPOSITION: There are scattered areas of fibroglandular density. FINDINGS: There is no evidence of suspicious mass, calcification, or architectural distortion to sugg est malignancy in either breast. There has been no suspicious interval change. IMPRESSION: 1. No mammographic evidence of malignancy. 2. Recommend routine screening mammography in one year. BI-RADS Category 1: Negative Reviewed, dictated and finalized at location A. TIONSHIP ASSOCIATE
== END ==
PROVIDERS: PCP Physician Assistant Medical; Visit Provider Obstetrics & Gynecology
DX: Z12.31 Encounter for screening mammogram for malignant neoplasm of breast (principal)
CPT/HCPCS: 77063; 77067

== ENCOUNTER 2024-01-05 12:15 | Outpatient (CLI) | payer OTHER, SELFPAY ==
--- NOTE | ~2024-01-05 | MM_ITS ---
EXAMINATION: MM screening demetrio BI w wagner HISTORY: Screening mammogram TECHNIQUE: Craniocaudal and mediolateral oblique 3-D tomosynthesis images were obtained and synthetic 2-D images were generated. CAD analysis was submitted and interpreted. COMPARISON: October 08, 2022, July 05, 2021 bilateral screening mammogram examinations BREAST PARENCHYMAL COMPOSITION: There are scattered areas of fibroglandular density. FINDINGS: There is no evidence of suspicious mass, calcification, or architectural distortion to sugg est malignancy in either breast. There has been no suspicious interval change. IMPRESSION: 1. No mammographic evidence of malignancy. 2. Recommend routine screening mammography in one year. BI-RADS Category 1: Negative Reviewed, dictated and finalized at location A.
== END 2024-01-05 12:16 ==
LOC: MICIMG 12:16
PROVIDERS: PCP Physician Assistant Medical; Visit Provider Physician Assistant Medical
DX: Z12.31 Encounter for screening mammogram for malignant neoplasm of breast (principal)
CPT/HCPCS: 77063; 77067

== ENCOUNTER 2025-03-01 12:36 | Emergency (ER) | payer OTHER, SELFPAY ==
--- NOTE | ~2025-03-01 | CT_ITS ---
EXAM: CTA chest PE protocol - 03/01/2025 13:40 CDT History: 44 years old Female with left scapular pain radiates to chest TECHNIQUE: CTA of the chest with contrast, according to pulmonary embolism protocol. Reformatted cor onal, sagittal, and 3-D MIP images were obtained. 100 cc of Optiray 350 were used for the study. Auto matic exposure control was used for this study. COMPARISON: None available. FINDINGS: EXAM QUALITY: Adequate visualization of the pulmonary arteries to the lobar level. PULMONARY ARTERIAL VASCULATURE: No evidence of pulmonary embolism in main and lobar pulmonary arterie s. Limited evaluation for segmental and peripheral pulmonary arteries due to suboptimal contrast bolu s timing. VISUALIZED LOWER NECK: Thyroid gland appears normal. No supraclavicular lymphadenopathy. AIRWAYS: Patent centrally. LUNGS and PLEURA: No suspicious pulmonary nodules. No pleural effusions. No focal consolidation or gr ound glass opacity.No pleural effusion. MEDIASTINUM and LEONARD: No hilar or mediastinal lymphadenopathy. No mediastinal mass is seen. Esophagus appears normal. HEART AND PERICARDIUM: Cardiac chambers are normal in size. No pericardial fluid or thickening is pre sent. VASCULATURE: Thoracic aorta and pulmonary arteries are normal in caliber. CHEST WALL: No supraclavicular or axillary lymphadenopathy. MUSCULOSKELETAL: No acute osseous abnormality. UPPER ABDOMEN: Unremarkable. IMPRESSION: No evidence of pulmonary embolism in main and lobar pulmonary arteries. Reviewed, dictated and finalized at location A.
--- NOTE | ~2025-03-01 | XR_ITS ---
EXAM/PROCEDURE: XR chest 2V - 03/01/2025 12:50 CDT HISTORY: 44 years old Female with chest pain TECHNIQUE: Two view(s) of the chest. COMPARISON: None available. FINDINGS: LUNGS/ PLEURA: No focal consolidation. No appreciable pneumothorax or large pleural effusion. HEART/ MEDIASTINUM: Heart appears normal in size. BONES: No acute osseous abnormality. OTHER: Right upper quadrant cholecystectomy clips. IMPRESSION: No acute process. Reviewed, dictated and finalized at location A. IMPRESSION: No acute process.
--- NOTE | 2025-03-01 12:38 | ECG_ITS ---
Test Date: 2025-03-01 12:41:45 Measurements Intervals [place] Rate: 87 P: 4 W[place]: 149 QRS: 3 QRSD: 88 T: 4 QT: 365 QTc: 440 Interpretive Statements SINUS RHYTHM WITH OCCASIONAL VENTRICULAR PREMATURE COMPLEXES No previous ECG available for comparison Electronically Signed On 03-01-2025 14:44:10 CDT by Nolberto Mckeon M.D.
--- OUTSIDE RECORDS SUMMARY | 2025-03-01 12:39 | XMS_ITS | Encounter Summary ---
Author Organization [facility] Address [address] [place] [address] Phone Care Team Providers Care Oracle Hyperion Consultant Name Role Phone Breezy Giraldo MD Primary Care Provider [phone] Unknown, Notinfile Primary Care Provider Unavail able Priya Hardin Primary Care Provider [phone] Encounter Details Date Type Department Care Team (Late st Contact Info) Description 12/23/2018 Orders Only [facility] Scanning, Provider Social History Tobacco Use Types Packs/Day Years Used Date Smoking Tobacco: Never Smokeless Tobacco: Never Alcohol Use Standard Drinks/Week Comments No 0 (1 standard drink = 0.6 oz pur e alcohol) Comments Unknown Sex and Gender Information Value Date Recorded Sex Assigned at Not on file 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 Gender Identity Not on file Sexual Orientation Not on file documented as of this encounter Plan of Treatment Not on file documented as of this encounter Procedures Procedure Name Priority Date/Time Associated Diagnosis Comments SCAN - PATHOLOGY 12/23/2018 documented in this encounter Results * SCAN - PATHOLOGY (12/23/2018) us Provider Scanning Final Result documented in this encounter Visit Diagnoses Not on filedocumented in this encounter Care Teams Oracle Hyperion Consultant Relationship Specialty Start Date End Date Breezy Giraldo MD [address] [place] [address] [phone] PCP - General Internal Medicine 03/02/18 11/05/23 Unknown, Notinfile PCP - General 11/06/23 05/11/24 Priya Hardin PA [facility] [place] [address] PCP - General Family Practice 05/12/24 documented as of this encounter
--- OUTSIDE RECORDS SUMMARY | 2025-03-01 12:39 | XMS_ITS | Patient Health Record ---
Author Organization [facility] Address [address] [place] [address] Care Team Providers Care Kitchen And Bath Designer Name Role Phone Kizzy LAGUNAS, Nay Primary Care Provider Manfred OLIVEIRA NP, [facility] Allergies No Known Allergies Reason For Referral No Information Medications Medication SIG (Take, Route, Frequency, Duration) Notes Start Date End Date Status Carvedilol 12.5 MG 1 tablet with food Orally Twice a day Active Levothyroxine Sodium 75 MCG 1 tablet in the morning on an empty stomach Orally Once a day Active Hyoscyamine Sulfate SL 0.125 MG 1 tablet under the tongue and allow to dissolve as needed Sublingual Three times a day for 30 days 02/13/2023 Active Estradiol 1 MG 1 tablet Orally Once a day Active Plan Of Treatment No Information Insurance Providers Payer Name Payer Address Payer Phone Subscriber Number Group Number Insured Name Patient Relationship to Insured Coverage Start Date Coverage End Date [facility] [address] [address] [place] [address] [id number] Lory Rubio Self - patient is the insured Medical (General) History Medical History History ICD Code hypertension Hypothyroidism depression melanoma Surgical History Surgery Date(Month/Year) partial thyroidectomy incisional hernia repeair cholecystectomy right colon resection d/t benign tumor
--- OUTSIDE RECORDS SUMMARY | 2025-03-01 12:40 | XMS_ITS | Referral Summary ---
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 Monitor left shoulder nevus. Mass of breast 01/18/2016 Social History Tobacco Use Types Packs/Day Years Used Date Smoking Tobacco: Never Smokeless Tobacco: Never Alcohol Use Standard Drinks/Week Comments No 0 (1 standard drink = 0.6 oz pur e alcohol) AUDIT-C Answer Date Recorded Q1: How often do you have a drink containing alcohol? Never 11/18/2023 Q2: How many drinks containi ng alcohol do you have on a typical day when you are drinking? Patient does not drink Q3: How often do you have si x or more drinks on one occasion? Never 11/18/2023 Personal Safety Answer Date Recorded Have you ever been in or are you currently in a harmful physical or emotional relationship or is someone making you feel afraid or unsafe? 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 Gender Identity Not on file Sexual Orientation Not on file Last Filed Vital Signs Vital Sign Reading Time Taken Comments Blood Pressure 119/80 11/18/2023 12:05 PM CDT Pulse 71 11/18/2023 12:05 PM CDT Temperature 36.7 C (98 F) 11/18/2023 11:00 AM CDT Respiratory Rate 16 11/18/2023 12:05 PM CDT Oxygen Saturation 98% 11/18/2023 12:05 PM CDT Inhaled Oxygen Concentration - - Weight 88.5 kg (195 lb) 11/18/2023 11:00 AM CDT Height 162.6 cm (5' 4) 11/18/2023 11:00 AM CDT Body Mass Index 33.47 11/18/2023 11:00 AM CDT Plan of Treatment Not on file [id number] CHO[facility] PLUS Advance Directives For more information, please contact: [phone] * Full Code (Latest Code Status on File) Date Activated Date Inactivated Comments 11/18/2023 10:46 AM 11/18/2023 4:38 PM Care Teams Public Health Relationship Specialty Start Date End Date Priya Hardin PA [address] [place] [id number] PCP - General Family Practice 05/12/24
--- OUTSIDE RECORDS SUMMARY | 2025-03-01 12:40 | XMS_ITS | Clinical Summary ---
Author Organization [facility] Address [address] [place] [phone] Phone Care Team Providers Care Disc Ruler Operator Name Role Phone Breezy Giraldo MD Primary Care Provider [phone] Allergies No known active allergies Medications estradioL (ESTRACE) 2 mg tablet Take 2 mg by mouth daily. Active carvediloL (COREG) 12.5 mg tablet Take 12.5 mg by mouth 2 times daily with meals. Active docusate sodium (COLACE) 50 mg capsule Take 50 mg by mouth 2 times daily. Active calcium as carbonate (Tums) 500 mg (200 mg elemental) Tablet, Chewable Take 1 Tablet (200 mg) by mouth 3 times daily. 100 Tablet 11/04/2023 Active HYDROcodone-yoshi taminophen (NORCO) 5-325 mg tabletIndicatio ns:Thyroid nodule Take 1 Tablet by mouth every 4 hours as needed for Pain. Max Daily Amount: 6 Tablets 20 Tablet 11/04/2023 8:09 PM CDT 11/04/2023 Active levothyroxine 125 mcg tablet Take 1 Tablet (125 mcg) by mouth daily in the morning. 90 Tablet 2 09/20/2024 Active Active Problems Problem Noted Date Diagnosed Date History of malignant melanoma 09/07/2018 Family History Medical History Relation Name Comments Colon Cancer Neg Hx Social History Tobacco Use Types Packs/Day Years Used Date Smoking Tobacco: Never Smokeless Tobacco: Never Alcohol Use Standard Drinks/Week Comments Not Currently 0 (1 standard drink = 0.6 oz pur e alcohol) Feeling Safe Answer Date Recorded Are you in a relationship wi th someone who hurts you emotionally and/or physically? Patient unable to answer 11/04/2023 Food Insecurity Answer Date Recorded Social/Environmental Concerns No concerns Transportation Needs Answer Date Record ed Social/Environmental Concerns No concerns Housing Stability Answer Date Recorded Social/Environmental Concerns No concerns Utility Needs Answer Date Recorded Social/Environmental Concerns No concerns Comments No Sex and Gender Information Value Date Recorded Sex Assigned at Not on file Legal Sex Female 7:24 AM CDT Gender Identity Not on file Sexual Orientation Not on file Last Filed Vital Signs Vital Sign Reading Time Taken Comments Blood Pressure 124/79 11/04/2023 7:50 PM CDT Pulse 75 11/04/2023 7:50 PM CDT Temperature 36.9 C (98.5 F) 11/04/2023 7:50 PM CDT Respiratory Rate 16 11/04/2023 7:50 PM CDT Oxygen Saturation 94% 11/04/2023 7:50 PM CDT Inhaled Oxygen Concentration - - Weight 86.3 kg (190 lb 4.8 oz) 11/04/2023 9:59 A M CDT Height 162.6 cm (5' 4) 11/04/2023 9:59 AM CDT Body Mass Index 32.66 11/04/2023 9:59 AM CDT Plan of Treatment Health Maintenance Due Date Last Done Comments DTAP/TDAP/TD VACCINES (1 - Tdap) 1999 HEPATITIS B VACCINES (1 of 3 - 19+ 3-dose series) 1999 BREAST CANCER SCREENING 07/25/2021 07/25/2020 INFLUENZA VACCINE (#1) 2025 HPV VACCINES Aged Out No longer eligi ble based on patient's age to complete this topic Medical Devices Implanted Type Area Oxygen Equipment Technician Device Identifier Shelf Expiration Date Model / Serial / Lot Hemostatic Surgicel 1x2in 1960 - [id number] Implanted:Qty: 1 on 11/04/2023 by Isidoro Prakash MD at [facility] Hemostatic N/A: Neck [employer] 07/23/20251960 / / [id number] Insurance [facility] [id number] RX [facility] [employer] Advance Directives For more information, please contact: [phone] * Full Code (Latest Code Status on File) Date Activated Date Inactivated Comments 11/04/2023 1:21 PM 11/04/2023 10:12 PM * Full Code Date Activated Date Inactivated Comments 12/09/2018 8:48 AM 12/09/2018 12:42 PM * Full Code Date Activated Date Inactivated Comments 10/11/2018 11:20 AM 10/12/2018 11:43 AM * Full Code Date Activated Date Inactivated Comments 10/11/2018 9:41 AM 10/11/2018 11:20 AM Care Teams Disc Ruler Operator Relationship Specialty Start Date End Date Breezy Giraldo MD [address] [place] [address] [place] [phone] PCP - General Internal Medicine 06/11/18
--- OUTSIDE RECORDS SUMMARY | 2025-03-01 12:40 | XMS_ITS | Clinical Summary ---
Author Organization [facility] Address [address] [place] [id number] Care Team Providers Care Film Color Tester Name Role Phone Priya Hardin Primary Care Provider [phone] Allergies No known active allergies Medications levothyroxine (SYNTHROID, LEVOTHROID) 75 mcg tablet Take 125 mcg by mouth windsmith before breakfast 9 Active estradioL (ESTRACE) 2 mg tablet [...] left shoulder nevus. 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 Gender Identity Not on file Sexual Orientation Not on file Obstetrics History Last Filed Vital Signs Vital Sign Reading [...] 11/18/2023 11:00 AM CDT Plan of Treatment Health Maintenance Due Date Last Done Comments Depression Screening 1980 Hepatitis C Screening 1980 DTaP/Tdap/Td Vaccine (1 - Tdap) 1991 Varicella Vaccines (1 of 2 - 13+ 2-dose series) 1993 Hepatitis B Screening 1998 Regular Well Visit/Exam 18-64 1998 Breast Cancer Screening-Mammogram 07/16/2021 07/16/2020, 07/12/2020, 07/02/2020 Influenza Vaccine (Season Ended) 2025 06/24/2017 HPV Vaccines Aged Out No longer eligi ble based on patient's age to complete this topic Pneumococcal vaccine <65 Aged Out No longer eligible based on patient's age to complete this topic Insurance [facility] CHOICE PLUS [facility] PLUS Advance Directives For more information, please contact: [phone] * Full Code (Latest Code Status on File) Date Activated Date Inactivated Comments 11/18/2023 10:46 AM 11/18/2023 4:38 PM Care Teams Film Color Tester Relationship Specialty Start Date End Date Priya Hardin PA [address] [place] [id number] PCP - General Family Practice 05/12/24
--- OUTSIDE RECORDS SUMMARY | 2025-03-01 12:40 | XMS_ITS | Data Portability ---
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 Patient will come back in a year unless there are new symptoms. [email or web address] Not available 02/26/2023 16:23:52 07/11/2024 07/11/2024 Annual gynecological exam performed. Patient will come back in a year unless there are new symptoms. [email or web address] Not available 07/06/2024 14:08:03 Plan of Treatment Reminders Order Date Submit Date Provider Last Modified By Organization Details Last Modified Time Details Appointments None recorded. Lab None recorded. Referral None recorded. Procedures None recorded. Surgeries None recorded. Imaging MAMMO, screening, digital, bilateral 2023 024 [facility], [address], [place], [address], 5 04:01:55 Medication Orders estradiol 2 mg tablet 2023 024 [facility] #[id number], [address], [place], [address], 4 11:56:56 estradiol 2 mg tablet 2022 023 [email or web address] [facility] #[id number], [address], [place], [id number], 4 14:08:58 phentermine 30 mg capsule [address] [id number], [address], [place], [id number], 3 16:24:56 phentermine 30 mg capsule [address] [facility][id number], [address], [place], [id number], 3 16:24:56 topiramate 50 mg tablet [address] [facility] #[id number], [address], [place], [id number], 3 16:25:08 Patient TargetsNo targets recorded. Patient InstructionsNo instructions recorded. Reason for Referral None Reported. Results Created Date Observation Date Name Description Value Unit Range Abnormal Flag Note LastModifiedBy Organization Detail LastModifiedTime 10/08/19 23 10/08/2022 imagi ng/di agnos tic resul t No observ ation record ed. [facility] [address], [place], [address], 10/09/2022 10:25:21 Result Notes None recorded. Problems Name Problem SNOMED Code Status Onset Date Resolution Date Notes Provider Name and Address Organization Details Recorded Time Female genital organ symptoms [id number] Completed 201405/13/2021 Pelvic Pain;Prac diann ID: 0001 Jaleesa washington [facility] 1 17:57:18 Finding of sensatio n of breast Completed 201405/13/2021 Mastodyni a;Practic e ID: 0001 Jaleesa washington [facility] 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 17:57:57 Disorder of breast [id number] Completed 201505/13/2021 Disorder of breast, unspecifi ed;Practi ce ID: 0001 Jaleesa Turner [facility] 17:57:16 Acute vaginiti s [id number] Completed 201505/13/2021 Acute vaginitis ;Practice ID: 0001 Jaleesa Turner [facility] 17:57:03 Headache [id number] Completed 201505/13/2021 Headache; Practice ID: 0001 [facility] 17:57:27 Deep pain on intercou rse [id number] Completed 201605/13/2021 Deep dyspareun ia;Practi ce ID: 0001 Jaleesa Turner [facility] 17:57:12 Pain in female genitali a Completed 201605/13/2021 Dysmenorr hea, unspecifi ed;Practi ce ID: 0001 Jaleesa Turner [facility] 17:57:19 Abdomina l pain 86308072 Completed 201605/13/2021 Unspecifi ed abdominal pain;Prac diann ID: 0001 Jaleesa Turner [facility] 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 17:57:38 Benign neoplasm of vulva 93181355 Completed 201805/13/2021 Benign neoplasm of vulva;Pra ctice ID: 0001 Jaleesa Turner [facility] 17:57:07 Finding of menstrua l bleeding Completed 201905/13/2021 Excessive and frequent menstruat ion with regular cycle;Pra ctice ID: 0001 Jaleesa Turner [facility] 17:57:23 [facility] [id number] Completed 201005/13/2021 Maia nava;Prac diann ID: 0001 Jaleesa Turner [facility] 17:57:34 Hypereme sis gravidar um with metaboli c disturba nce - not delivere d [id number] Completed 201005/13/2021 Hyperemes is gravidaru m with metabolic disturban ata, jose singh;Practic e ID: 0001 Jaleesa Turner [facility] 17:57:29 Malaise and fatigue [id number] Completed 201005/13/2021 Fatigue And Malaise;P ractice ID: 0001 Jaleesa Turner [facility] 17:57:33 Dehydrat ion [id number] Completed 201005/13/2021 Dehydrati on;Practi ce ID: 0001 Jaleesa Turner [facility] 17:57:13 Nausea and vomiting [id number] Completed 201005/13/2021 Nausea with vomiting; Practice ID: 0001 Jaleesa Turner [facility] 17:57:36 Complica tion related to pregnanc y Completed 201005/13/2021 Weight Insuffici ent Antepartu m;Practic e ID: 0001 Jaleesa Turner [facility] 17:57:10 Syncope and collapse [id number] Completed 201005/13/2021 Syncope and collapse; Practice ID: 0001 Jaleesa washington [facility] 17:58:00 Speciali zed medical examinat ion Completed 201005/13/2021 Routine gynecolog ical examinati on;Practi ce ID: 0001 Jaleesa washington [facility] 17:57:59 Pregnanc y test positive [id number] Completed 201005/13/2021 Positive Test;Prac diann ID: 0001 Jaleesa Turner [facility] 17:57:44 Screenin g for malignan t neoplasm of cervix Completed 201005/13/2021 Pap Smear;Pra ctice ID: 0001 Jaleesa Turner [facility] 17:57:51 Routine antenata l care Completed 201005/13/2021 Supervisi on of other normal ;Practice ID: 0001 Jaleesa washington [facility] 17:57:47 anatomy study Completed 201005/13/2021 [facility] ANAT SURVEY;Pr actice ID: 0001 Jaleesa washington [facility] 17:57:21 Labor and delivery complica madai by heart rate anomaly [id number] Completed 201105/13/2021 HEART RATE NON REASSURIN G;Practic e ID: 0001 Jaleesa washington [facility] 17:57:31 Delivery normal [id number] Completed 201105/13/2021 Normal delivery; Practice ID: 0001 Jaleesa washington [facility] 17:57:15 Single live from patrick n pregnanc y [id number] Completed 201105/13/2021 Mother with single liveborn; Practice ID: 0001 Jaleesa Turner [facility] 17:57:54 Postpart um care Completed 201105/13/2021 Routine postpartu m follow-up ;Practice ID: 0001 Jaleesa Turner [facility] 17:57:43 Breast lump [id number] Completed 201105/13/2021 Lump or mass in breast;Pr actice ID: 0001 Jaleesa Turner [facility] 17:57:09 Pain of breast [id number] Completed 201205/13/2021 Mastodyni a;Practic e ID: 0001 Jaleesa Turner [facility] 17:57:41 Adult health examinat ion Completed 201405/13/2021 Routine general medical examinati on at a health care facility; Practice ID: 0001 Jaleesa Turner [facility] 17:57:[address] Concept Completed 201505/13/2021 Encntr for general adult medical exam w/o abnormal findings; Recorded Elsewhere : No Locati on: [facility] So urce: EHR Chron ic: N Practic e ID: 0001 Bill able Time: 02:30:00 PM Jaleesa Turner [facility] 17:57:56 Pregnanc y [id number] Completed 201005/13/2021 state, incidenta l;Recorde d Elsewhere : No Locati on: [facility] So urce: EHR Chron ic: N Practic e ID: 0001 Bill able Time: 11:45:00 AM Jaleesa Turner [facility] 17:57:46 Secondar y dysmenor lennox [id number] Completed 201905/13/2021 Secondary dysmenorr hea;Recor ded Elsewhere : No Locati on: [facility] So urce: EHR Chron ic: N Practic e ID: 0001 Bill able Time: 10:00:00 AM Jaleesa Turner [facility] 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 17:57:39 Problem Notes None recorded. Procedures Surgical History Date Name Laterality Status Provider Name and Address Organization Details Recorded Time 11/23/19 24 Date of Last Mammogram completed [facility] 07/11/2024 11:47:49 10/23/19 24 thyroidectomy completed [facility] 07/11/2024 11:48:20 08/14/20 20 Total Hysterectomy completed [facility] 12/23/2021 12:34:52 08/14/20 20 Hernia repair w/mesh completed [facility] 12/23/2021 12:35:31 06/07/20 18 Date of Last Pap Smear completed [facility] 05/30/2020 17:56:30 08/24/18 94 Thyroid Surgery completed Jaleesa Turner [facility] 05/14/2021 17:37:50 Cholecystectomy completed Liat Esquivel [facility] 05/18/2020 12:30:50 Tonsillectomy completed Liat Esquivel [facility] 05/18/2020 12:31:04 repair of small intestine completed Liat Machado [facility] 05/18/2020 12:31:22 Imaging Results None recorded. Procedure Notes None recorded. Medical Equipment None Reported. Allergies No known drug allergies Medications Name Sig Start Date Stop Date Status Note LastModified by Organization Details LastModified Time Prescript ion - Prior Authoriza tion Request 02/26 completed Not Available Not Available Not Available carvedilo l 6.25 mg tablet TAKE 1 TABLET BY MOUTH EVERY 12 HOURS 02/26 completed Not Available Not Available Not Available carvedilo l 12.5 mg tablet TAKE 1 TABLET BY MOUTH TWICE A DAY active Not Available Not Available No t Available hydrocodo ne 5 mg-acetam inophen 325 mg tablet TAKE 1 TABLET BY MOUTH EVERY 4 HOURS NEEDED FOR PAIN 07/11 completed Not Available Not Available Not Available sucralfat e 1 gram tablet TAKE 1 TABLET BY MOUTH FOUR TIMES DAILY NEEDED FOR GASTRIC REFLUX 02/26 completed Not Available Not Available Not Available Compazine 10 mg tablet take 1 tablet (10MG) by oral route 3 times every day 12/11 completed Prescrib tracy Odell e: No [facility] By: kelli casper DateTime : 05/08/20 11 10:15:00 AM Not Available Not Available Not Available phentermi ne 15 mg capsule TAKE 1 CAPSULE BY MOUTH EVERY DAY active Not Available Not Available No t Available metronida zole 500 mg tablet TAKE 1 TABLET BY MOUTH EVERY 8 HOURS 12/23 completed Not Available Not Available Not Available phentermi ne 37.5 mg tablet TAKE 1 TABLET BY MOUTH EVERY DAY 12/23 completed Not Available Not Available Not Available ciproflox acin 500 mg tablet TAKE 1 TABLET BY MOUTH EVERY 12 HOURS 02/26 completed Not Available Not Available Not Available liothyron ine 5 mcg tablet TAKE 1 TABLET BY MOUTH EVERY DAY active Not Available Not Available No t Available phentermi ne 30 mg capsule TAKE 1 CAPSULE BY MOUTH EVERY DAY 02/26 completed Not Available Not Available Not Available carvedilo l 3.125 mg tablet TAKE 1 TABLET BY MOUTH EVERY 12 HOURS 02/26 completed Not Available Not Available Not Available levothyro xine 75 mcg tablet TAKE 1 TABLET BY MOUTH EVERY DAY IN THE MORNING 07/11 completed Not Available Not Available Not Available Bactroban 2 % topical cream apply by topical route 3 times every day for 10 days a small amount to the affected area 11/20 completed Prescrib ed Elsewher e: No [facility] odify By: fannie tz Sakinaou nter DateTime : 11/12/19 19 09:30:00 AM Not Available Not Available Not Available Zofran 4 mg tablet take 2 tablet by oral route every 8 hours for 2 days 12/11 completed Prescrib ed Elsewher e: Yes Loca [facility] By: kelli casper DateTime : 04/17/20 11 11:45:00 AM Not Available Not Available Not Available alprazola m 0.25 mg tablet TAKE 1 TABLET BY MOUTH TWICE A DAY NEEDED FOR ANXIETY active Not Available Not Available No t Available estradiol 1 mg tablet TAKE 1 TABLET BY MOUTH DAILY 02/26 completed Not Available Not Available Not Available Diflucan 100 mg tablet take 1 tablet (100MG) by oral route every day 11/15 completed Prescrib ed Elsewher e: No [facility] By: adria thornton DateTime : 10/05/19 13 04:30:00 PM Not Available Not Available Not Available dicyclomi ne 20 mg tablet TAKE 1 TABLET BY MOUTH FOUR TIMES DAILY NEEDED FOR STOMACH PAIN 02/26 completed Not Available Not Available Not Available pantopraz ole 40 mg tablet,de layed release TAKE 1 TABLET BY MOUTH DAILY AT BEDTIME 12/23 completed Not Available Not Available Not Available oseltamiv ir 75 mg capsule 05/18 completed Not Available Not Available Not Available levothyro xine 125 mcg tablet TAKE 1 TABLET (125 MCG) BY MOUTH DAILY IN THE MORNING. active Not Available Not Available No t Available hyoscyami ne 0.125 mg sublingua l tablet DISSOLVE 1 TABLET UNDER THE TONGUE THREE TIMES DAILY NEEDED 07/11 completed Not Available Not Available Not Available promethaz ine 25 mg tablet take 1 tablet (25MG) by oral route every day at bedtime 12/11 completed Prescrib ed Elsewher e: No Locat ion: [facility] odify By: roxannegeorgina Leone pennie DateTime : 04/17/20 11 11:45:00 AM Not Available Not Available Not Available estradiol 2 mg tablet TAKE 1 TABLET BY MOUTH EVERY DAY WITH MEALS active Not Available Not Available No t Available lisinopri l 5 mg tablet TAKE 1 TABLET BY MOUTH DAILY 02/26 completed Not Available Not Available Not Available hydrochlo rothiazid e 25 mg tablet TAKE 1 TABLET BY MOUTH EVERY DAY 02/26 completed Not Available Not Available Not Available furosemid e 20 mg tablet TAKE 1 TABLET BY MOUTH 1 TIME PER DAY 02/26 completed Not Available Not Available Not Available ergocalci ferol (vitamin D2) 1,250 mcg (50,000 unit) capsule TAKE 1 CAPSULE BY MOUTH WEEKLY 05/15 completed Not Available Not Available Not Available dicyclomi ne 10 mg capsule 12/23 completed Not Available Not Available Not Available progester one micronize d 100 mg capsule TAKE 1 CAPSULE BY MOUTH EVERY NIGHT AT BEDTIME. active Not Available Not Available No t Available Colace 50 mg capsule take 1 capsule by oral route every day at bedtime as needed 12/11 completed Prescrib ed Elsewher e: Yes Loca tion: [facility] odify By: kelli casper DateTime : 12/12/19 12 02:30:00 PM Not Available Not Available Not Available azithromy elliott 500 mg tablet 02/26 completed Not Available Not Available Not Available Hallie 0.35 mg tablet take 1 tablet by oral route every day 11/15 completed Prescrib ed Elsewher e: No Locat ion: [facility] odify By: adria thornton DateTime : 12/12/19 12 02:30:00 PM Not Available Not Available Not Available topiramat e 50 mg tablet TAKE 1 TABLET BY MOUTH EVERY DAY active Not Available Not Available No t Available 10 mg-400 mcg capsule 11/15 completed Prescrib ed Elsewher e: Yes Loca tion: [facility] odify By: adria thornton DateTime : 04/17/20 11 11:45:00 AM Not Available Not Available Not Available Tirosint 25 mcg capsule take 1 capsule by oral route every day 05/15 completed Prescrib tracy Odell e: Nidhi Locat ion: [facility] Ricardo billy By: lbillhar tz Encou nter DateTime : 11/12/19 09:30:00 AM Not Available Not Available Not Available tranexami c acid 650 mg tablet take 2 tablet by oral route 3 times every day during menses 05/18 completed Not Available Not Available Not Available Saxenda 3 mg/0.5 mL (18 mg/3 mL) subcutane ous pen injector INJECT 0.6 MG UNDER THE SKIN DAILY FOR 1 WEEK, THEN INCREASE THE DOSE 0.6 MG EACH WEEK UP TO 3 MG 06/21 completed Not Available Not Available Not Available Slynd 4 mg (28) tablet Take 1 tablet every day by oral route for 90 days. 12/23 completed Not Available Not Available Not Available Mounjaro 7.5 mg/0.5 mL subcutane ous pen injector INJECT 7.5MG INTO THE SKIN ONCE WEEKLY DIRECTED 08/15 completed Not Available Not Available Not Available Mounjaro 2.5 mg/0.5 mL subcutane ous pen injector INJECT 2.5 MG EVERY WEEK SUBCUTAN EOUSLY 08/15 completed Not Available Not Available Not Available Vitals Date Recorded Body height Body mass index (BMI) Body weight Systolic And Diastolic Systolic And Diastolic Provider Name and Address Organization Details Last Updated DateTime 10/14/2022 162.56 cm 30.9 kg/m2 22996.63 g 159/98 mm[Hg] 138/92 mm[Hg] [facility] 15:49:09 Date Recorded Body height Body mass index (BMI) Body weight Systolic And Diastolic Provider Name and Address Organization Details Last Updated DateTime 11/11/2022 162.56 cm 29.9 kg/m2 06595.07 g 135/90 mm[Hg] [facility] 11/11/2022 16:07:56 Date Recorded Body height Body mass index (BMI) Body weight Systolic And Diastolic Provider Name and Address Organization Details Last Updated DateTime 02/26/2023 162.56 cm 31.6 kg/m2 38252 g 113/81 mm[Hg] Sharon Scotter [facility] 02/26/2023 16:24:08 Date Recorded Body height Body mass index (BMI) Body weight Systolic And Diastolic Provider Name and Address Organization Details Last Updated DateTime 07/11/2024 162.56 cm 28.2 kg/m2 31376.59 g 114/82 mm[Hg] Cecy Vogel [facility] 07/11/2024 11:46:15 Date Recorded Systolic And Diastolic Systolic And Diastolic Provider Name and Address Organization Details Last Updated DateTime 08/15/2022 137/101 mm[Hg] 126/98 mm[Hg] MESERET Hoskins [address], [place], [address], [facility] 08/19/2022 17:48:10 Date Recorded Body height Body mass index (BMI) Body weight Provider Name and Address Organization Details Last Updated DateTime 08/15/2022 162.56 cm 29 kg/m2 93764.75 g Katheryn Neal [facility] 08/15/2022 11:15:29 Social History Question Answer Notes LastModified by Organizat ion Details LastModified Time Tobacco Smoking Status Never Smoker ALEK [place], [facility] 04/29/2022 17:39:11 Are You Blind Or Do You Have Difficulty Seeing? No Information n ot available 05/14/2021 What Is Your Level Of Caffeine Consumption? Moderate Information not available 01/10/2022 How Much Tobacco Do You Chew? None Information not available 01/10/2022 In The 14 Days Before Symptom Onset, Have You Had Close Contact With A Laboratory-confirm ed COVID-19 While That Case Was Ill? No Information n ot available 01/10/2022 In The 14 Days Before Symptom Onset, Have You Had Close Contact With A Person Who Is Under Investigation For COVID-19 While That Person Was Ill? No Information not available 01/10/2022 Have You Been To An Area Known To Be High Risk For COVID-19? No Information not available 01/10/2022 Are You Deaf Or Do You Have Serious Difficulty Hearing? No Information not available 05/14/2021 What Type Of Diet Are You Following? REGULAR Information n ot available 05/14/2021 What Is The Highest Grade Or Level Of School You Have Completed Or The Highest Degree You Have Received? [id number] Information not available 01/10/2022 Do You Use Your Seat Belt Or Car Seat Routinely? Yes Information not available 05/14/2021 Do You Have Smoke And Carbon Monoxide Detectors In Your Home? Yes Information not available 05/14/2021 How Much Tobacco Do You Smoke? No Information not available 01/10/2022 Do You Use Sunscreen Routinely? Yes Information not available 05/14/2021 Have You Used IV Drugs? No Information not available 01/10/2022 Sex: Unknown Functional Status Question Answer Note LastModified by Organizat ion Details LastModified Time Do you use any illicit or recreational drugs? No Information not available 05/14/2021 What is your level of alcohol consumption? None Information not available 05/14/2021 Are you able to walk? YESWOREST Information not available 05/14/2021 What is your exercise level? Occasional Information not available 05/14/2021 Mental Status Question Answer Note LastModified by Organization D etails LastModified Time Do you feel stressed (tense, restless, nervous, or anxious, or unable to sleep at night)? [id number] Information not available 05/14/2021 Family History Relationship Description Onset Age of this Age Resolved Age Notes LastModified by Organization Details LastModified Time Mother Cyst of ovary [email or web address] Not available 2023 11:41:30 Mother Hypertensive disorder Not available 2021 17:47:00 Mother Disorder of thyroid gland Not available 2021 17:47:00 Paternal Grandmother Malignant lymphoma [email or web address] Not available 2023 11:41:30 Sister Asthma Not available 04/29/2022 17:47:00 Maternal Grandmother Disorder of thyroid gland Not available 2021 17:47:00 Paternal Grandfather Diabetes mellitus Not available 2021 17:47:00 Brother Asthma Not available 04/29/2022 17:47:00 Medical History Condition Response Anemia Y Thyroid Problems Y Gynecological History Statement/Question Response Date of Last Mammogram 11/23/2023 Date of Last Colonoscopy Date of LMP 04/26/2020 Sexually Active? Y Menses Monthly N STIs/STDs N Colposcopy Date of Last Pap Smear 06/07/2018 Sexual Problems? N Current Control Method Hysterectom y LMP Approximate Obstetrics History GPAL:G 3 P 0 0 0 3 Type Value Living 3 Total 3 Past Encounters Encounter ID Performer Location Encounter Start Date Encounter Closed Date Diagnosis/Indication Diagnosis SNOMED-CT Code Diagnosis ICD10 Code Diagnosis Note [id number] Cheri [facility] [address] [address] 05/18/2020 12:26:09 05/18/2020 17:12:36 Abnormal uterine bleeding [id number] 9100 N93.9 We discussed MD consult to discuss endometria l ablation or other options she is a candidate for that are non-hormon al for menorrhagi a Last US is wnl. She is working with her PCP regarding anemia/vit patricia D deficiency and low B12. She will make appt. Time spent in visit is a total of 15 mins with at least 50% of visit consisting of counseling and review of plan of care. [id number] Kj Macias MD [place] [address] [address] 05/30/2020 17:49:39 05/31/2020 10:19:05 Menorrhagia [id number] N92.0 This patient is a 40-year-ol d female with severe menorrhagi a and dyspareuni a with uterine tenderness and pain associated with palpation of the uterus. We spent over 40 minutes face-to-fa ce. We discussed various aspects of her care. We discussed various medical treatments for her symptoms. Discussed the findings. We discussed surgical treatment. Patient desires definitive surgical treatment. We have agreed to move forward with total laparoscop ic hysterecto my she understand s procedure well. We have also discussed her umbilical hernia and that that could be repaired at the same anesthesia . Will contact General surgery, make a referral, with a coordinate the surgery. Dyspareunia [id number] N94 .10 On examina tion - VE - uterine tenderness [id number] R39.89 Umbilical hernia [id number] K42.9 [id number] Kj Macias MD [place] [address],[place] [address] 08/20/2020 11:55:17 08/20/2020 11:56:38 [id number] Kj Macias MD [place] [address],[place] [address] 08/22/2020 17:03:38 08/22/2020 17:59:30 Postoperative care [id number] Z48.89 this patient is 40-year-ol d female presents forpostopf ollow-up. She is 1 weekpostop from a total laparoscop ic hysterecto my and bilateral salpingect jaxon. She is recovering normally. She had a hernia repair in [facility] with my surgery. She denies any nausea, vomiting, fever, chills. She denies any foul-smell ing vaginal discharge or watery vaginal discharge she denies any vaginal bleeding. She will follow up as needed. [id number] Kj Macias MD [place] [address],[place] [address] 10/08/2020 13:43:20 10/08/2020 14:37:05 Pain in pelvis [id number] R10.2 this patient is a 40-year-ol d female who presents for pelvic pain. We agreed to obtain pelvic ultrasound . She returned to the pelvic ultrasound . Will discuss those results. She is status post TLH and laparoscop ic hernia repair. She had mesh placement. [id number] Kj Macias MD [place] [address],[place] [address] 10/29/2020 15:53:38 10/29/2020 16:48:01 Pain in pelvis [id number] R10.2 this patient is a 40-year-ol d female who presents for pelvic pain. We agreed to obtain pelvic ultrasound . She returned to the pelvic ultrasound . Will discuss those results. She is status post TLH and laparoscop ic hernia repair. She had mesh placement. [id number] Kj Macias MD [place] [address],[place] [address] 10/29/2020 15:54:48 10/30/2020 14:18:43 Abdominal pain [id number] R10.9 This patient is a 40-year-ol d female who presents for follow-up on abdominal/ pelvic pain. Pelvic ultrasound was performed. It is not particular ly helpful. There is a right corpus luteum cyst. The cyst likely does not account for her pain. Her pain is longstandi ng. She has trouble discerning this pain from pain she had prior to her surgery. 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 To obtain a CT of the abdomen pelvis. [id number] [facility] [address],[place] [address] 05/15/2021 12:33:28 05/15/2021 15:22:44 Gynecologic examination [id number] Z01.419 Suggested Calcium with Vitamin D 1200-1500m g daily. Patient advised to get an annual flu shot in the fall and she could obtain at [facility] or [facility] take care clinic. Also to obtain TDap vaccinatio n if you have not had one in the last 10 years. Recommend yearly mammograms . Encouraged monthly self breast exams. Encourage safe sexual practices, to use condoms and limit partners if not already in a monogamous relationsh ip. Engage in daily exercise of low impact aerobic exercise 45-60 minutes 4-5 times weekly. Avoid tobacco and illicit drugs as well as using moderation with alcohol intake less than 1-2 8 oz beverages daily. This lifestyle behavior pattern will lead to less health conditions and longer life span. If BMI greater than 25 weight watchers or dietary consult advised. All questions have been answered. Patient appears to understand informatio n, but if you have any questions please call or respond to this email. D/C Pap/HPV unless otherwise indicated per asccpDecli ne need std screen Pain in pelvis [id number] R10.2 Having what we think might be ovulatory pain & phantom cycle cramping.S he had a Hysterecto my but has both ovaries.Hy st was for heavy menses/Hx anemia etc.Non-Ca ncer indication s. TVUS/CT 10/2020 wnl Discussed that surgical scar tissue could also be a part of this issue.Sugg ested use of thera-ball that can be warmed or frozen or room temp to run over this area when it is NOT aggravated to help with scar tissue. Pelvic exam wnl today Start SLYND daily x 3mosHas Migraines w/o Aura and is on topamax prnWill try to avoid Estrogen containing products at this time; but consider 1/10 dose BCP if needed & does not aggravate her migraines in any way. RTO x 3mosConsid er Pelvic floor therapy moving forward as it may help to have some assistance if scar tissue from surgical interventi on is a contributi ng factor. Will keep a pain diary so we can further ensure this issue is occurring cyclically vs random. lot#: [id number], Exp 05/2023 Screening mammography 24 [id number] Z12.31 [id number] Kj Macias MD [place] [address],[place] [address] 12/23/2021 15:02:06 12/24/2021 12:57:08 Pain in pelvis [id number] R10.2 This patient is a 41-year-ol d female who presents for pelvic pain. Patient has severe pain is in the right side of the pelvis. It is debilitati ng. It is affecting her activities of daily living, her work performanc e and her ability to come to work. Is severely affecting her quality of life. It is sharp pain. She rates it a 10/10. Is on the right side. It is constant. Is unremittin g. Nothing is palliative . Nothing is provocativ e. A recent pelvic ultrasound was normal. However. Patient also has had a colonoscop y which was normal. She had a CT of the abdomen and pelvis which was normal. The patient like surgical evaluation would also like laparoscop ic bilateral Salpingo-o ophorectom y. We spent over 25 minutes face-to-fa ce. We talked about the procedure in detail. I talked to her about risk. She understand s risks benefits and alternativ es to this procedure. She understand s injuries may occur her the result in hospitaliz ation, more surgery, severe illness. We have agreed to proceed with laparoscop ic bilateral salpingo-o ophorectom y. Acute pelvic pain 508760 005 R10.2 [id number] Kj Macias MD [place] [address],[place] [address] 01/06/2022 10:06:58 01/06/2022 10:10:02 [id number] Kj Macias MD [place] [address],[place] [address] 01/10/2022 10:41:17 01/10/2022 11:35:56 Postoperative care [id number] Z48.89 this patient is a 41-year-ol d female presents for postop follow-up. She has no complaints . Her incisions are clean dry and intact. She had a laparoscop ic bilateral salpingo-o ophorectom y. She has well-heale d incisions. Her hormone replacemen t therapy at this time is adequate. She will contact us if she has any problems. [id number] Kj Macias MD [place] [address],[place] [address] 01/28/2022 16:40:35 01/30/2022 15:24:17 Obesity [id number] E66.9 this patient is a 41-year-ol d female who presents for weight management . She has elevated liver enzymes. We have agreed to a liver ultrasound . She needs a hemoglobin A1c. She is going to see the dietitian and get a sleep study. We talked about energy consumptio n and energy expenditur e. Talked about body compositio n and resting energy expenditur e. We talked about testing for those 2 items. Spent an hour face-to-fa ce. More than 50% was counseling . We have concerns about her mood. After her evaluation is complete we will consider treatment options. she return in 2 weeks. [id number] Kj Macias MD [place] [address],[facility] [place] [address] 02/25/2022 16:36:24 02/26/2022 16:27:58 Obesity [id number] E66.9 Essential hypertension 69881253 I10 Non-alcoho lic fatty liver 225138739 K76.0 this patient is a 41-year-ol d female presents for follow-up on weight management . She had a ultrasound of her liver that revealed fatty liver disease. Nonalcohol ic fatty liver disease. She has elevated blood pressures. Patient has end-organ damage and secondary disease Associated with her obesity. Her weight gain is been profound and rapid. We discussed treatment options today. We discussed 1st treating her blood pressure. With her blood pressure controlled we could consider all treatment options. Currently she is limited to non stimulant medication s. The best non stimulant medication s are hard to get covered by her insurance. She does have secondary disease associated with her class 1 Obesity. We need to get hemoglobin A1c to rule out pre diabetes. we talked about the DLP 1 agonist. We agreed to prescribe the DLP 1 agonist. We will see how her pharmacy and insurance company handle this. She will return in 2 weeks with documented blood pressures after starting 25 mg hydrochlor othiazide. May need more medication for blood pressures. Spent 40 minutes with patient. More than 50% was counseling . She return in 2 weeks. Discussed multiple complex topics type 2 diabetes, hypertensi on, obesity medication s, exercise. [id number] Kj Macias MD [place] [address],[facility] [place] [address] 03/04/2022 09:39:46 03/05/2022 14:23:46 [id number] Kj Macias MD [place] [address],[place] [address] 03/11/2022 16:16:25 03/11/2022 17:01:36 Obesity [id number] E66.9 this patient is a 41-year-ol d female who presents for follow-up on weight management . We have yet to start medication . We tried GLP 1 agonist. It was too expensive. We have hesitated to start phentermin e because were blood pressure. She has documented normal blood pressures at home. She has documented normal blood pressures and other places. She is going to monitor blood pressures at home. She is working with dietitian. She has a organized plan to eat healthy fashion. She is active. She exercises regularly. We spent over 20 minutes face-to-fa ce. More than 50% was counseling . [id number] Kj Macias MD [place] [address],[place] [address] 03/25/2022 14:42:11 03/26/2022 15:50:12 Obesity [id number] E66.9 this patient is a 41-year-ol d female presents for follow-up on weight management . She has felt no affect of the 15 mg a phentermin e. We agreed to increase phentermin e to 30 mg. We discussed lifestyle changes. We discussed dietitian consult. She is going to follow-up with dietitian. She is beginning a exercise routine. She is getting more active. We spent more than 20 minutes face-to-fa ce. More than 50% was counseling . To return in 2 weeks [id number] Kj Macias MD [place] [address],[place] [address] 04/29/2022 17:37:03 04/30/2022 14:33:32 Obesity [id number] E66.9 this patient is 41-year-ol d female presents for follow-up on weight management . She she is doing well. She has some challenges may be with her diet that need to be addressed. Talked about quantifyin g energy consumptio n. Talked about establishi ng calorie requiremen ts and limiting calorie intake below the caller a core months. She is active. She has lost significan t weight so far and would like to continue our current treatment routine. We talked about the new GLP 1 agonist. Spent over 20 minutes face-to-fa ce. More than 50% was counseling . We agreed to move forward with our current plan medically. That is phentermin e, 30 mg and topiramate , 50 mg. [id number] Kj Macias MD [place] [address],[place] [address] 06/21/2022 09:53:47 06/23/2022 15:32:36 Obesity 208437528 E66.9 This patient is a 42-year-ol d female who presents for follow-up on weight management . She lost a modest amount of weight in the 1st month of the new GLP 1 agonist. She denies any untoward side effects. She denied very modest effect on her appetite. She noticed a markedly increased appetite the end of the week. She is active. She is doing well with managing her calorie consumptio n. We agreed to go to 7.5 mg. we agreed to pass over the 5 mg dose. Believe she can tolerate it. We spent more than 20 minutes face-to-fa ce. More than 50% was counseling . [id number] Kj Macias MD [place] [address],[place] [address] 07/22/2022 15:49:09 07/22/2022 16:56:24 Obesity 739037057 E66.9 This patient is a 42-year-ol d female presents for follow-up on weight management . She was using the GLP 1 agonist for last 7 weeks. She was unable to get a refill. We discussed medication options. We agreed to return to phentermin e topiramate at the 30 mg dose. She has been exercising , resistance training, cardiovasc ular. She has been seeing the dietitian has a solid plan for her eating. We spent over 20 minutes face-to-fa ce. More than 50% was counseling . [id number] MESERET Hoskins [place] [address],[place] [address] 08/15/2022 10:55:45 08/21/2022 16:07:40 Obesity 202143046 E66.9 She has not had any weight loss since last visit since restarting phentermin eDiscussed exercise recommenda tions and healthy eatingEnco uraged director digital communications appointmen tBp today elevated, 137/101 and 126/98. BP has often been elevated. No longer taking her BP medication .Discussed need to focus on getting BP under control , needs to f/u with PCP for BP check/rosendo gement. Recommend stopping phentermin e until BP is controlled , as phentermin e is contraindi cated with uncontroll ed HTN.She will f/u with PCP, notify the office once she has started on medication and f/u at that time. Can discuss restarting phentermin e once BP is controlled .ED precaution s discussed Time spent in visit is a total of 25 mins with at least 50% of visit consisting of counseling and review of plan of care. Elevated blood-pressure reading without diagnosis of hypertension 292132089 R03.0 [id number] Kj Macias MD [place] [address],[place] [address] 10/14/2022 15:39:03 10/14/2022 16:31:43 Obesity 560325123 E66.9 42-year-ol d female presents for follow-up on weight management . She has regained 10 lb off of her medication . She did over 2 months. . She is having trouble managing hunger and is eating the wrong foods. Medication was discontinu ed due to her blood pressure. Her blood pressures being treated. We agreed to restart her medication s. She has been active. And she will regain management of her diet. We will follow up in 1 month. we spent 20 minutes face-to-fa ce. More than 50% was counseling . [id number] Kj Macias MD [place] [address],[place] [address] 11/11/2022 15:26:58 11/11/2022 18:35:17 Obesity 260321858 E66.9 This patient is a 42-year-ol d female presents for follow-up on weight management . She is doing well again. She had regained 10 lb and she has lost 6-7. She is exercising . Her calorie management is good. We agreed to stay on the same medication . She has no untoward side effects. We spent 20 minutes face-to-fa ce. More than 50% was counseling . [id number] [facility] [address],[place] [address] 02/26/2023 16:10:32 03/10/2023 15:29:55 Gynecologic examination 38440075 Z01.419 Suggested Calcium with Vitamin D 1200-1500m g daily. Patient advised to get an annual flu shot in the fall and she could obtain at [facility] or [facility] clinic. Also to obtain TDap vaccinatio n if you have not had one in the last 10 years. Recommend yearly mammograms . Encouraged monthly self breast exams. Encourage safe sexual practices, to use condoms and limit partners if not already in a monogamous relationsh ip. Engage in daily exercise of low impact aerobic exercise 45-60 minutes 4-5 times weekly. Avoid tobacco and illicit drugs as well as using moderation with alcohol intake less than 1-2 8 oz beverages daily. This lifestyle behavior pattern will lead to less health conditions and longer life span. If BMI greater than 25 weight watchers or dietary consult advised. All questions have been answered. Patient appears to understand informatio n, but if you have any questions please call or respond to this email. D/C Pap/HPV unless otherwise indicated per asccpDecli ne need std screen Genetic Screen discussed Colon Screen PCP Dexa Screen na Routine Labs PCP Menopausal symptom 74759 002 N95.1 Counseled on medication R/B's, Most common side effects, & use. All questions were answered to patient satisfacti on. Continue HRT as discussed. [id number] Kj Macias MD [place] [address] [address] 07/11/2024 11:40:59 07/11/2024 12:10:29 Gynecologic examination [id number] Z01.419 Annual gynecologi amelia exam performed. Patient will come back in a year unless there are new symptoms. Suggest Calcium with Vitamin D if not eating in diet. Patient advised to get annual flu shot. Recommend yearly physicals and perform monthly breast exams. Genetic testing is available for patients with family history of cancer. Engage in safe sexual practices, use condoms. Encouraged to have daily exercise. Avoid tobacco and illicit drugs, moderation of alcohol. If BMI greater than 25 dietary consult advised. If you have any questions please call or email. mammogram- DUE - order given- pt to schedule colon cancer screening - UTD PCP DEXA scan- n/a - recommend dexa 5 years post BSO Pap smear- d/c per ASCCP guidelines - hx hyst with BSO laboratory evaluation - PCP/endocr inologist STI testing - declined Screening mammography 24 500319 Z12.31 Menopausal symptom 30087 002 N95.1 Counseled on medication R/B's, Most common side effects, & use. All questions were answered to patient satisfacti on. Continue HRT as discussed. Health Concerns Section Related Observation LastModified by Organization Detai ls LastModified Time None Recorded Concern Status LastModified by Organization Details LastModified Time None Recorded Advance Directives Directive None Recorded Payers Insurance Date Sequence Insurance Name Policy Number Policy Rizzo Covered Member ID Rizzo Member ID Guarantor Name 12/23/2021 1 [facility] ([facility] [id number] Han Rubio [id number] Lory Rubio 07/10/2024 1 [facility] [id number] Han Rubio [id number] Lory Rubio Notes Date Note Type Note Provider Name and Address Organization Details Recorded Time 2 text/html 42yo Presents for weight management f/uStarted back on phentermine and [facility] weight loss since last visitSeeing director digital communications, exercisingFeeling well, no negative SENo longer taking BP medication - had negative SE from it MESERET Hoskins [address], [place], [address], [facility] 08/19/2022 17:52:56 3 text/html 42-year-old female presents for follow-up on weight management. She has regained 10 lb off of her medication. She did over 2 months. . She is having trouble managing hunger and is eating the wrong foods. Medication was discontinued due to her blood pressure. Her blood pressures being treated. We agreed to restart her medications. She has been active. And she will regain management of her diet. We will follow up in 1 month. we spent 20 minutes [id number]. More than 50% was counseling. Kj Macias MD [address], [place], [address], [facility] 10/14/2022 16:17:22 3 text/html This patient is a 42-year-old female presents for follow-up on weight management. She is doing well again. She had regained 10 lb and she has lost 6-7. She is exercising. Her calorie management is good. We agreed to stay on the same medication. She has no untoward side effects. We spent 20 minutes ckyk-sy-ndaa. More than 50% was counseling. Kj Macias MD [address], [place], [address], [facility] 11/11/2022 16:20:25 3 text/html Annual Student Support Services Director Post-MenopausalReporte d bypatient.Menopausal Symptoms:no menopausal symptoms; normal vaginal lubrication Vaginal Bleeding:history of menopause having occurred; no history of post menopausal bleeding Urinary Symptoms:no hematuria; no incontinence; no nocturia; no urinary frequency Vulva:no genital lesion; no vulvar atrophy Vagina:normal vaginal discharge; no vaginal atrophy Breast:no breast lump; no nipple discharge; no breast pain Sexual Complaints:no sexual complaints Psychological Symptoms:no depression; no anxiety Preventive Measures:encourage regular mammograms starting age 40; encourage self breast examination; encourage regular exercise; encourage no tobacco use; mammogram performed within the past year Cheri Mendosa [facility]- [address], [place], [address], [facility] 03/22/2023 22:12:43 4 text/html Annual GYNReported bypatient.Menstrual cycle:Hyst Urinary symptoms:No hematuria; No incontinence Vulva:No genital lesion Vagina:Normal vaginal discharge Breast:No breast pain; No breast lump; No nipple discharge Sexual complaints:No sexual complaints; No pain during intercourse; Normal libido Menopausal Symptoms:No menopausal symptoms; Normal vaginal lubrication Psychological symptoms:No depression; No anxiety; No PMDD Preventive measures:Encourage self breast examination; Encourage regular exercise; Encourage no tobacco use; Encourage regular mammograms starting age 40; Mammogram performed within the past year Patient presents for annual well woman exam. Patient denies concerns today. SELENE OLIVAREZ NP [address], [place], [address], [facility] 07/11/2024 12:10:21 OBGyn Episode Ob Episode Information Episode Created Date Number of Fetuses Patient Bloodtype Patient rh Status Prepregnancy Weight lbs Domestic Partner Domestic Partner Phone Father Name Tissue Rewinder Status 05/18/20 20 1 CLOSED Fetus Data First Name Last Name Admitted to NICU Weight (g) Sex Living Outcome Pediatric Complications Fetus ID Race Codes Race Delivery Type 3373.36 3704 F Full Term 4810 Vaginal Delivery Arias Calculation Initial Arias Date Initial Exam Date Initial Exam Provider Initial Ultrasound Date Last Menstrual Period Date Ultra Sound Weeks Gestation 0 Eighteen To Twenty Week Arias Update Ultra Sound Date Fundal Height At Umbil Quickening Date Ultra Sound Latest Weeks Gestation Final Arias Confirmed By Final Arias Confirmed Date Final Arias Date Ultra Sound Latest Days Gestation 0 0 Menstrual History Last Menstrual Date Menses Monthly On Bcp Conception Prior Menses Frequency Hcg Plus Date Menarche Onset Age Delivery Information Delivery Date Delivery Type Labor Anesthesia Weeks Gestation Incision Type Labor Labor Length Hrs Delivered By Post Complications Tubal Sterilization Discharge Date Comments 7 Discharge Information Feeding Method Contraceptive Method Maternal HG B and HCT Levels Ob Episode Information Episode Created Date Number of Fetuses Patient Bloodtype Patient rh Status Prepregnancy Weight lbs Domestic Partner Domestic Partner Phone Father Name Tissue Rewinder Status 05/18/20 20 1 CLOSED Fetus Data First Name Last Name Admitted to NICU Weight (g) Sex Living Outcome Pediatric Complications Fetus ID Race Codes Race Delivery Type 3968.93 M Full Term 4811 Vaginal Delivery Arias Calculation Initial Arias Date Initial Exam Date Initial Exam Provider Initial Ultrasound Date Last Menstrual Period Date Ultra Sound Weeks Gestation 0 Eighteen To Twenty Week Arias Update Ultra Sound Date Fundal Height At Umbil Quickening Date Ultra Sound Latest Weeks Gestation Final Arias Confirmed By Final Arias Confirmed Date Final Arias Date Ultra Sound Latest Days Gestation 0 0 Menstrual History Last Menstrual Date Menses Monthly On Bcp Conception Prior Menses Frequency Hcg Plus Date Menarche Onset Age Delivery Information Delivery Date Delivery Type Labor Anesthesia Weeks Gestation Incision Type Labor Labor Length Hrs Delivered By Post Complications Tubal Sterilization Discharge Date Comments 9 40 Discharge Information Feeding Method Contraceptive Method Maternal HG B and HCT Levels Ob Episode Information Episode Created Date Number of Fetuses Patient Bloodtype Patient rh Status Prepregnancy Weight lbs Domestic Partner Domestic Partner Phone Father Name Tissue Rewinder Status 05/18/20 20 1 CLOSED Fetus Data First Name Last Name Admitted to NICU Weight (g) Sex Living Outcome Pediatric Complications Fetus ID Race Codes Race Delivery Type 3713.55 7704 M Full Term 4809 Vaginal Delivery Arias Calculation Initial Arias Date Initial Exam Date Initial Exam Provider Initial Ultrasound Date Last Menstrual Period Date Ultra Sound Weeks Gestation 0 Eighteen To Twenty Week Arias Update Ultra Sound Date Fundal Height At Umbil Quickening Date Ultra Sound Latest Weeks Gestation Final Arias Confirmed By Final Arias Confirmed Date Final Arias Date Ultra Sound Latest Days Gestation 0 0 Menstrual History Last Menstrual Date Menses Monthly On Bcp Conception Prior Menses Frequency Hcg Plus Date Menarche Onset Age Delivery Information Delivery Date Delivery Type Labor Anesthesia Weeks Gestation Incision Type Labor Labor Length Hrs Delivered By Post Complications Tubal Sterilization Discharge Date Comments 2 40 Discharge Information Feeding Method Contraceptive Method Maternal HG B and HCT Levels
--- OUTSIDE RECORDS SUMMARY | 2025-03-01 12:40 | XMS_ITS | Clinical Summary ---
Author Organization [facility] Address [address] [place] [address] Care Team Providers Care Patrol Commander Name Role Phone Priya Hardin PA-C Primary Care Provider [phone] Allergies No known active allergies Medications levothyroxine (SYNTHROID) 75 MCG tablet Take 1 tablet (75 mcg total) by mouth every morning. Active ESTROGENS CONJUGATED OR Active carvedilol (COREG) 12.5 MG tablet Take 1 tablet (12.5 mg total) by mouth 2 (two) times daily. Active Social History Tobacco Use Types Packs/Day Years Used Date Smoking Tobacco: Never Assessed Tobacco Cessation:Counseling Given: Not Answered Comments Unknown Sex and Gender Information Value Date Recorded Sex Assigned at Not on file Legal Sex Female 6:08 PM CDT Gender Identity Not on file Sexual Orientation Not on file Last Filed Vital Signs Vital Sign Reading Time Taken Comments Blood Pressure 137/91 06/25/2023 3:39 PM CDT Pulse 89 06/25/2023 3:37 PM CDT Temperature 36.4 C (97.6 F) 06/25/2023 3:37 PM CDT Respiratory Rate 18 06/25/2023 3:37 PM CDT Oxygen Saturation 100% 06/25/2023 3:37 PM CDT Inhaled Oxygen Concentration - - Weight 81.6 kg (180 lb) 06/25/2023 3:37 PM CDT Height 162.6 cm (5' 4) 06/25/2023 3:37 PM CDT Body Mass Index 30.9 06/25/2023 3:37 PM CDT Plan of Treatment Health Maintenance Due Date Last Done Comments Cervical Cancer Screening Pa p Smear (Age 30 to 64) Every 3 Years 1980 Annual Physical 1983 Hepatitis C 1998 DTaP, Tdap and Td Vaccines ( 1 - Tdap) 1999 Hepatitis B Vaccines (1 of 3 - 19+ 3-dose series) 1999 Cervical Cancer Screening Pa p with HPV Testing (Age 30 to 64) Every 5 Years 2010 Cervical Cancer Screening with HPV 2010 Mammogram Screening 2020 COVID-19 Vaccine ( - 2023-2 5 season) 2024 HPV Vaccines Aged Out No longer eligi ble based on patient's age to complete this topic Meningococcal B Vaccine Aged Out No l onger eligible based on patient's age to complete this topic Meningococcal Vaccine Aged Out No yvonne raymond eligible based on patient's age to complete this topic Pneumococcal Vaccine: Pediat rics (0 to 5 Years) and At-Risk Patients (6 to 49 Years) Aged Out No longer eligible b ased on patient's age to complete this topic RSV Immunizations Under 20 Months Aged Out No longer eligible based on patient's age to complete this topic Insurance Care Teams Patrol Commander Relationship Specialty Start Date End Date Priya Hardin PA-C [address] [place], [place] [id number] [place] [address] PCP - General PHYSICIAN INTERNAL CONTROL CONSULTANT 06/25/23
[2025-03-01 12:55] LABS: Hematocrit 43.1 % (37.0-47.0); Hemoglobin 14.2 g/dL (12.0-15.0); Immature Granulocyte Percent A 0.1 % (0-0.5); Lymphocytes Absolute Auto 2.12 K/mm3 (0.9-3.2); Mean Corpuscular HGB Conc 32.9 g/dl (32-36); Mean Corpuscular Hemoglobin 28.1 pg (26-34); Mean Corpuscular Volume 85.2 fl (80-100); Nucleated Red Blood Cells Absolute Auto 0.000 K/mm3 (0.0-0.012); Nucleated Red Blood Cells Perc 0.0 % (0.0-0.2); Platelet Count Result 333 k/mm3 (150-375); Red Blood Count 5.06 M/mm3 (4.2-5.4); White Blood Count 6.7 K/mm3 (4.5-10.0)
[2025-03-01 13:02] VITALS: BP 149/105; PULSE 89; RESP 21; TEMP 36.6; O2SAT 100
[2025-03-01 13:05] LABS: INR 0.9; Prothrombin Time 12.4 Seconds (11.1-14.7)
[2025-03-01 13:06] LABS: Partial Thromboplastin Time 30.4 Seconds (22.3-36.8)
[2025-03-01 13:10] LABS: Alanine Aminotransferase 53 U/L (6-35); Albumin Level 4.6 g/dL (3.5-5.1); Alkaline Phosphatase 128 U/L (38-126); Anion Gap 10 mmol/L (4-12); Aspartate Amino Transferase 34 U/L (14-36); Bilirubin,Total 0.7 mg/dL (0.2-1.3); Blood Urea Nitrogen 12 mg/dL (7-17); Calcium 9.5 mg/dL (8.4-10.2); Carbon Dioxide 26 mmol/L (22-30); Chloride 101 mmol/L (98-107); Estimated CRCL calculation 80 ml/min; Estimated Glomerular Filt Rate > 60; Glucose 97 mg/dL (65-110); Lipase 161 U/L (23-300); Potassium 4.0 mmol/L (3.4-5.0); Sodium 137 mmol/L (137-145); Total Protein 8.3 g/dL (6.3-8.2)
--- NOTE | 2025-03-01 13:12 | ED_ITS ---
HPI - Chest Pain General Chief Complaint: Chest Pain Stated Complaint: chest/back pain Time Seen by Provider: 03/01/25 12:45 History of Present Illness HPI narrative: 44-year-old female with a history of hypertension, total hysterectomy, cholecystectomy presents to the emergency department with at bedside for midback pain that radiates to the chest for 2 hours. Patient states she was sitting in her work chair when she began having left mid/upper back pain she describes as a pressure. States the pain is constant but does wax and wane. She said shortly after the pain in her back started she began having pressure in her chest. She cannot identify any aggravating or alleviating factors. She denies cough, congestion, hemoptysis, lower extremity edema, history of VTE, recent surgeries or hospitalizations, abdominal pain, numbness/weakness/tingling to her extremities. She states she was not feeling anxious at the onset of symptoms but did begin to feel anxious shortly after because her symptoms worried her. Her is at bedside also notes that their son recently moved off to college a week and half ago and she has not been eating well since. Patient became tearful when her mention her son moving away to college. Patient denies any cardiac history or family cardiac history or CVA. She does not smoke. She also notes a history of acid reflux but states this does not feel like acid reflux. Related Data Home Medications ?Medication ?Instructions ?Recorded ?Confirmed ?Last Taken ?Type levothyroxine 75 mcg tablet 75 mcg PO DAILY 06/07/20 11/22/24 01/03/22 05:00 History Allergies Allergy/AdvReac Type Severity Reaction Status Date / Time hydrochlorothiazide AdvReac Intermediate syncope Verified 03/01/25 13:11 venlafaxine (From Effexor) AdvReac Intermediate Cough Verified 03/01/25 13:11 lisinopril AdvReac Intermediate Abdominal Uncoded 03/01/25 13:11 Pain Review of Systems 2 Review of Systems: All systems reviewed & are unremarkable except as noted in HPI and below PMFSH Past Medical History Medical History Hyperglycemia Postmenopausal HRT (hormone replacement therapy) Diverticulosis HTN (hypertension) Hypersomnia Diffuse cystic mastopathy Abdominal pain, chronic, right upper quadrant RLQ abdominal pain Anemia Melanoma Depression Hypothyroid Surgical History Surgical History History of bilateral oophorectomy 12/2021 History of hysterectomy 2020 History of incisional hernia repair 08/14/20 Laparoscopic incisional hernia repair with Symbotex mesh, da Richard assisted H/O partial thyroidectomy x2 , 2018 S/P colon resection right, benign tumor removal Hx laparoscopic cholecystectomy 2018, OA Dr. Bunch Family History Family History Sibling Family history of allergic disorder Mother Family history of hypothyroidism Hypertension Grandparent Diabetes mellitus Grandparent Lymphoma Other Breast cancer Other Family history of malignant neoplasm No family history of malignant neoplasm Social History Social History Social History: 11/22/24 patient declined SDOH Smoking status: Never smoker Alcohol intake: never Substance use: never Substance use type: does not use Lack of Transportation: No Lack of Food: Never True Current Housing: I Have Housing Concerned About Future Housing: No Difficulty Paying Gas/Electric Bills: No Difficulty Paying for Meds: No Currently Unemployed: No Education: High School Diploma/GED Difficulty w/ Childcare or Family Care: No Living arrangements: with family Occupation/Education: occupation 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 HEAD: Normocephalic, atraumatic. EYES: PERRLA and EOMI. ENT: Nares clear, no rhinorrhea or epistaxis. Mucous membranes moist. NECK: Supple. No midline cervical spinous tenderness, crepitus, step-offs or deformities BACK: No midline thoracic lumbar spinous tenderness, crepitus, step-offs or deformities. No tenderness to paraspinous muscles CHEST: Clear to auscultation. No respiratory distress. No tenderness to chest wall HEART: Regular rate and rhythm. No murmur heard. Normal peripheral pulses. ABDOMEN: Soft, nontender, nondistended, normal active bowel sounds. No rebound, guarding or rigidity EXTREMITIES: Normal range of motion. No edema. Negative Homans bilaterally SKIN: Warm, dry, no rash. NEURO: No focal deficits. Alert and oriented x3 Course Vital Signs Vital signs: Vital Signs Temperature 98 F 03/01/25 13:02 Pulse Rate 89 03/01/25 13:02 Respiratory Rate 21 H 03/01/25 13:02 Blood Pressure 149/105 H 03/01/25 13:02 Pulse Oximetry 100 03/01/25 13:02 Oxygen Delivery Room Air 03/01/25 13:02 Temperature 98 F 03/01/25 13:02 Pulse Rate 75 03/01/25 17:30 Respiratory Rate 16 03/01/25 17:30 Blood Pressure 140/72 03/01/25 17:30 Pulse Oximetry 98 03/01/25 17:30 Oxygen Delivery Room Air 03/01/25 13:08 MDM - Chest Pain MDM Narrative Medical decision making narrative: 44-year-old female with history of hypertension presents to emergency department for mid/upper back pain that radiates to her chest that started 2 hours prior to arrival she was sitting in her office chair. No aggravating or alleviating factors. Triage vitals with elevated blood pressure 149/105, otherwise unremarkable. Patient is afebrile and nontoxic appearing. She is neurovascularly intact. She does become tearful during exam with her mentions her son recently moving away to college. EKG shows normal sinus rhythm with occasional PVCs, LAD, normal MD interval, normal QRS duration, normal QTC, no ST elevations or depressions. There are Q- waves and T-wave inversions in lead 3 which is unchanged from prior EKG. Troponin is undetectable x2. Chest x-ray shows no acute cardiopulmonary process. Lab work shows no leukocytosis or anemia. Chemistries with mild elevation of ALT to 53 which is increased from prior. Alk-phos mildly elevated 128. Remainder of LFTs are unremarkable. Lipase normal at 161. CTA chest PE obtained given radiating symptoms which shows no evidence of PE and main and lobar pulmonary arteries. There is limited evaluation for segmental and peripheral pulmonary arteries due to suboptimal contrast bolus timing. I do have low suspicion for subsegmental PE given no tachycardia or hypoxia. CT shows no evidence of dissection. Patient was updated on results. She received a GI cocktail and Pepcid with resolution of chest pain and scapular pain. She did endorse a sore throat after drinking the GI cocktail. She had no lip or tongue swelling, no pharyngeal edema. She denies itchiness to her throat or rashes. She states her throat feels sore only. I did offer to give her Benadryl and steroids in the ED, however she declined. She was monitored in the ED for over 3 hours without signs of anaphylaxis. Her chest pain and scapular pain has not returned. Feel patient is safe for discharge home and outpatient management. Suspect indigestion/reflux as possible source of her presentation. Will start her on Protonix for home. Advised to follow-up closely with her PCP, will also provide cardiology referral. Discussed strict ED return precautions. She is agreeable with the plan verbalized understanding. Discharged in stable condition. Lab Data 03/01/25 12:48 03/01/25 12:48 Labs: Lab Results 03/01/25 03/01/25 Range/Units 12:48 15:49 WBC 6.7 (4.5-10.0) K/mm3 RBC 5.06 (4.2-5.4) M/mm3 Hgb 14.2 (12.0-15.0) g/dL Hct 43.1 (37.0-47.0) % MCV 85.2 (80-100) fl MCH 28.1 (26-34) pg MCHC 32.9 (32-36) g/dl RDW 12.7 (11.5-14.5) % Plt Count 333 (150-375) k/mm3 MPV 9.3 (7.4-10.4) fl Immature Gran % (Auto) 0.1 (0-0.5) % Neut % (Auto) 57.0 (45.5-73.1) % Lymph % (Auto) 31.5 (18.3-44.2) % Banks % (Auto) 8.3 (2.6-8.5) % Eos % (Auto) 2.4 (0-4.4) % Baso % (Auto) 0.7 (0.2-1.2) % Lymph # (Auto) 2.12 (0.9-3.2) K/mm3 Banks # (Auto) 0.6 (0.1-0.6) K/mm3 Eos # (Auto) 0.2 (0-0.3) K/mm3 Baso # (Auto) 0.1 (0.0-0.1) K/mm3 Abs Immat Gran (auto) 0.01 (0.00-0.031) K/mm3 Absolute Neuts (auto) 3.8 (1.3-6.7) K/mm3 Absolute Nucleated RBC 0.000 (0.0-0.012) K/mm3 Nucleated RBC % 0.0 (0.0-0.2) % PT 12.4 (11.1-14.7) Seconds INR 0.9 APTT 30.4 (22.3-36.8) Seconds Sodium 137 (137-145) mmol/L Potassium 4.0 (3.4-5.0) mmol/L Chloride 101 (98-107) mmol/L Carbon Dioxide 26 (22-30) mmol/L Anion Gap 10 (4-12) mmol/L BUN 12 D (7-17) mg/dL Creatinine 0.85 (0.7-1.0) mg/dL Estim Creat Clear Calc 80 ml/min Estimated GFR > 60 (59 - ) Glucose 97 (65-110) mg/dL Calcium 9.5 (8.4-10.2) mg/dL Total Bilirubin 0.7 (0.2-1.3) mg/dL AST 34 (14-36) U/L ALT 53 H (6-35) U/L Alkaline Phosphatase 128 H (38-126) U/L Troponin I < 0.012 < 0.012 (0.000-0.034) ng/mL NT-Pro-B Natriuret Pep 42 (19.9-100) pg/mL Total Protein 8.3 H (6.3-8.2) g/dL Albumin 4.6 (3.5-5.1) g/dL Lipase 161 (23-300) U/L Discharge Plan Discharge Clinical Impression: Atypical chest pain, Acute mid back pain Patient Disposition: Home Condition: Stable Instructions: Antibiotic Form, Chest Pain (DC) Additional Instructions: You were evaluated in the emergency department for chest pain and mid scapular pain. Your workup here is reassuring. He reported improvement after antacids. I have sent Protonix to the pharmacy, please take these as directed. Please follow-up closely with her primary care provider and software client architect. Return to the emergency department if you develop new or worsening chest pain, shortness of breath or other concerning symptoms. Patient Language: Portuguese Prescriptions: New pantoprazole 20 mg tablet,delayed release (DR/EC) 20 mg PO HS 28 Days Qty: 28 0RF No Action levothyroxine 75 mcg tablet 75 mcg PO DAILY estradiol 1 mg tablet 1 mg PO DAILY Qty: 30 12RF alprazolam 0.25 mg tablet 0.25 mg PO BID PRN (Reason: anxiety) Qty: 30 0RF carvedilol 12.5 mg tablet 12.5 mg PO BID Qty: 180 1RF liothyronine 5 mcg tablet 5 mcg PO DAILY Qty: 90 1RF phentermine 15 mg capsule 15 mg PO DAILY Qty: 30 5RF progesterone micronized 100 mg capsule 100 mg PO QHS Qty: 90 1RF topiramate 50 mg tablet 50 mg PO DAILY Qty: 90 1RF phentermine 37.5 mg tablet 37.5 mg PO DAILY Qty: 30 0RF Rx Instructions: must administer 30 minutes before or 1-2 hours after breakfast Follow-up/Referrals: Maggy Holliday DO [Physician] - Priya Hardin PA-C [Primary Care Provider] - Quality HEART score for chest pain patients History: slightly suspicious ECG: normal Age: < or = to 45 years Risk factors: 1 or 2 risk factors Troponin: < or = to 1x normal limit Heart score: 1
[2025-03-01 13:21] LABS: Troponin I < 0.012 ng/mL (0.000-0.034)
[2025-03-01] MEDS: ASPIRIN 81 MG CHEWABLE TABLET 324 MG PO (13:26)
[2025-03-01] MEDS: BELLADONNA ALK/PHENOB ELIX 10 ML, MAG HYDROX/ALUMINUM HYD/SIMETH 30 ML, LIDOCAINE 2% VI... PO (13:27)
[2025-03-01] MEDS: FAMOTIDINE 20 MG/2 ML VIAL IV PUSH (13:30)
--- OUTSIDE RECORDS SUMMARY | 2025-03-01 13:58 | XMS_ITS | Clinical Summary ---
Author Organization [facility] Address [address] [place] [address] Care Team Providers Care Telephone Order Dispatcher Name Role Phone Priya Hardin PA-C Primary Care Provider [phone] Allergies No known active allergies Medications levothyroxine [...] topic Meningococcal Vaccine Aged Out No yvonne rayomnd eligible based on patient's age to complete this topic Pneumococcal Vaccine: Pediat rics (0 to 5 Years) and At-Risk Patients (6 to 49 Years) Aged Out No longer eligible b ased on patient's age to complete this topic RSV Immunizations Under 20 Months Aged Out No longer eligible based on patient's age to complete this topic Insurance Care Teams Telephone Order Dispatcher Relationship Specialty Start Date End Date Priya Hardin PA-C [address] [place], [place] [address] [place] [address] PCP - General PHYSICIAN POLITICAL ANALYST 06/25/23
--- OUTSIDE RECORDS SUMMARY | 2025-03-01 13:58 | XMS_ITS | Referral Summary ---
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 Gender Identity Not on file Sexual Orientation [...] Plan of Treatment Not on file Insurance [id number] H[facility]PPO Address: [facility] [address] [place] [address] [facility] CHOICE PLUS [facility] H[facility]/PPO Address: [facility] [address] [place] [address] Advance Directives For more information, please contact: [phone] * Full Code (Latest Code Status on File) Date Activated Date Inactivated Comments 11/18/2023 10:46 AM 11/18/2023 4:38 PM Care Teams Diaper Folder Relationship Specialty Start Date End Date Priya Hardin PA [address] [place] [id number] PCP - General Family Practice 05/12/24
--- OUTSIDE RECORDS SUMMARY | 2025-03-01 13:58 | XMS_ITS | Clinical Summary ---
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
--- OUTSIDE RECORDS SUMMARY | 2025-03-01 13:58 | XMS_ITS | Encounter Summary ---
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
--- OUTSIDE RECORDS SUMMARY | 2025-03-01 13:58 | XMS_ITS | Clinical Summary ---
Author Organization [facility] Address [address] [place] [phone] Phone Care Team Providers Care Vessel Specialist Name Role Phone Breezy Giraldo MD Primary Care Provider [phone] Allergies No known active allergies Medications estradioL [...] this topic Medical Devices Implanted Type Area Patient Accounting Representative Device Identifier Shelf Expiration Date Model / Serial / Lot Hemostatic Surgicel 1x2in 1960 - [id number] Implanted:Qty: 1 on 11/04/2023 by Isidoro Prakash MD at [facility] Hemostatic N/A: Neck [employer] 07/23/20251960 / / [id number] Insurance [facility] [id number] RX [facility] [employer] Advance Directives For more information, please contact: [phone] * Full Code (Latest Code Status on File) Date Activated Date Inactivated Comments 11/04/2023 1:21 PM 11/04/2023 10:12 PM * Full Code Date Activated Date Inactivated Comments 12/09/2018 8:48 AM 12/09/2018 12:42 PM * Full Code Date Activated Date Inactivated Comments 10/11/2018 11:20 AM 10/12/2018 11:43 AM * Full Code Date Activated Date Inactivated Comments 10/11/2018 9:41 AM 10/11/2018 11:20 AM Care Teams Vessel Specialist Relationship Specialty Start Date End Date Breezy Giraldo MD [address] [place] [address] [place] [phone] PCP - General Internal Medicine 06/11/18
[2025-03-01 14:52] LABS: NT Pro B Type Natriuretic Pept 42 pg/mL (19.9-100)
--- NOTE | 2025-03-01 15:07 | ECG_ITS ---
Test Date: 2025-03-01 15:11:55 Measurements Intervals [place] Rate: 85 P: -4 MN: 155 QRS: -3 QRSD: 83 T: -2 QT: 366 QTc: 438 Interpretive Statements SINUS RHYTHM INFERIOR MYOCARDIAL INFARCTION , PROBABLY OLD [40+ ms Q WAVE AND/OR ST/T ABNORMALITY IN II/aVF] Compared to ECG 03/01/2025 12:41:45 Myocardial infarct finding now present Ventricular premature complex(es) no longer present Electronically Signed On 03-02-2025 11:38:27 CDT by Nolberto Mckeon M.D.
[2025-03-01 16:15] LABS: Troponin I < 0.012 ng/mL (0.000-0.034)
[2025-03-01 17:30] VITALS: BP 140/72; PULSE 75; RESP 16; O2SAT 98
== END 2025-03-01 17:39 | disposition home or self-care (01) ==
PROVIDERS: Emergency Medicine; Emergency Provider Physician Assistant; PCP Physician Assistant Medical
DX: R07.89 Other chest pain (principal); M54.9 Dorsalgia, unspecified; I10 Essential (primary) hypertension; D64.9 Anemia, unspecified; F32.A Depression, unspecified; E03.9 Hypothyroidism, unspecified
CPT/HCPCS: 36415; 71046; 71275; 80053; 83690; 83880; 84484; 85025; 85610; 85730; 93005; 96374; 99284; A9270; Q9967

== ENCOUNTER 2025-03-06 07:09 | Outpatient (CLI) | payer OTHER, SELFPAY ==
--- NOTE | ~2025-03-06 | MM_ITS ---
EXAMINATION: MM screening demetrio BI w wagner HISTORY: Screening TECHNIQUE: Craniocaudal and mediolateral oblique 3-D tomosynthesis images were obtained and synthetic 2-D images were generated. CAD analysis was submitted and interpreted. COMPARISON: Comparison to multiple prior studies sequentially, with oldest reviewed study dated 04/2020. BREAST PARENCHYMAL COMPOSITION: Not dense: There are scattered areas of fibroglandular density. FINDINGS: There is no evidence of suspicious mass, calcification, or architectural distortion to sugg est malignancy in either breast. There has been no suspicious interval change. IMPRESSION: 1. No mammographic evidence of malignancy. 2. Recommend routine screening mammography in one year. BI-RADS Category 1: Negative Reviewed, dictated and finalized at location B.
--- OUTSIDE RECORDS SUMMARY | 2025-03-06 07:13 | XMS_ITS | Data Portability ---
Author Organization [facility] Address [address] [place] [place] [address] [place] [address] Care Team Providers Care Clearing House Clerk Name Role Phone MAGALYS ESQUIVEL Primary Care Provider [phone] Assessment Encounter Date Assessment Date Assessment LastModified by Organization Details LastModified Time 02/26/2023 02/26/2023 Annual gynecological exam performed. Patient will come back in a year unless there are new symptoms. [email or web address] Not available 02/26/2023 16:23:52 07/11/2024 07/11/2024 Annual gynecological exam performed. Patient will come back in a year unless there are new symptoms. [email or web address] Not available 07/06/2024 14:08:03 Plan of Treatment Reminders Order Date Submit Date Provider Last Modified By Organization Details Last Modified Time Details Appointments None recorded. Lab None recorded. Referral None recorded. Procedures None recorded. Surgeries None recorded. Imaging MAMMO, screening, digital, bilateral 2023 024 [facility], [address], [place], [address], 5 04:01:55 Medication Orders estradiol 2 mg tablet 2023 024 [facility][id number], [address], [place], [address], 4 11:56:56 estradiol 2 mg tablet 2022 023 [id number], [address], [place], [id number], 4 14:08:58 phentermine 30 mg capsule [address] [id number], [address], [place], [id number], 3 16:24:56 phentermine 30 mg capsule [address] [facility]25845, [address], [place], [id number], 3 16:24:56 topiramate 50 mg tablet [address] [facility]34, [address], [place], [id number], 3 16:25:08 Patient TargetsNo targets recorded. Patient InstructionsNo instructions recorded. Reason for Referral None Reported. Results Created Date Observation Date Name Description Value Unit Range Abnormal Flag Note LastModifiedBy Organization Detail LastModifiedTime 10/08/19 23 10/08/2022 imagi ng/di agnos tic resul t No observ ation record ed. [facility] [address], [place], [address], 10/09/2022 10:25:21 Result Notes None recorded. Problems Name Problem SNOMED Code Status Onset Date Resolution Date Notes Provider Name and Address Organization Details Recorded Time Female genital organ symptoms 182035680 Completed 201405/13/2021 Pelvic Pain;Prac diann ID: 0001 Jaleesa washington [facility] 1 17:57:18 Finding of sensatio n of breast Completed 201405/13/2021 Mastodyni a;Practic e ID: 0001 Jaleesa washington [facility] 17:57:[address] Concept Completed 201505/13/2021 Encntr for buff wheel fabricator exam (general) (routine) w/o abn findings; Practice ID: 0001 Jaleesa washington [facility] 17:57:57 Disorder of breast 76360192 Completed 201505/13/2021 Disorder of breast, unspecifi ed;Practi ce ID: 0001 Jaleesa Turner [facility] 17:57:16 Acute vaginiti s 71401676 Completed 201505/13/2021 Acute vaginitis ;Practice ID: 0001 Jaleesa Turner [facility] 17:57:03 Headache 83408809 Completed 201505/13/2021 Headache; Practice ID: 0001 Jaleesa Turner [facility] 17:57:27 Deep pain on intercou rse 345154749 Completed 201605/13/2021 Deep dyspareun ia;Practi ce ID: 0001 Jaleesa Turner [facility] 17:57:12 Pain in female genitali a Completed 201605/13/2021 Dysmenorr hea, unspecifi ed;Practi ce ID: 0001 Jaleesa Turner [facility] 17:57:19 Abdomina l pain 68653408 Completed 201605/13/2021 Unspecifi ed abdominal pain;Prac diann ID: 0001 Jaleesa Turner [facility] 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 17:57:38 Benign neoplasm of vulva 87512750 Completed 201805/13/2021 Benign neoplasm of vulva;Pra ctice ID: 0001 Jaleesa Turner [facility] 17:57:07 Finding of menstrua l bleeding Completed 201905/13/2021 Excessive and frequent menstruat ion with regular cycle;Pra ctice ID: 0001 Jaleesa Turner [facility] 17:57:23 ECU Healtherz [id number] Completed 201005/13/2021 Maia nava;Prac diann ID: 0001 Jaleesa Turner [facility] 17:57:34 Hypereme sis gravidar um with metaboli c disturba nce - not delivere d 802449897 Completed 201005/13/2021 Hyperemes is gravidaru m with metabolic disturban ata, jose singh;Practic e ID: 0001 Jaleesa Turner [facility] 17:57:29 Malaise and fatigue 122835008 Completed 201005/13/2021 Fatigue And Malaise;P ractice ID: 0001 Jaleesa Turner [facility] 17:57:33 Dehydrat ion 89447457 Completed 201005/13/2021 Dehydrati on;Practi ce ID: 0001 Jaleesa Turner [facility] 17:57:13 Nausea and vomiting 23330121 Completed 201005/13/2021 Nausea with vomiting; Practice ID: 0001 Jaleesa Turner [facility] 17:57:36 Complica tion related to pregnanc y Completed 201005/13/2021 Weight Insuffici ent Antepartu m;Practic e ID: 0001 Jaleesa Turner [facility] 17:57:10 Syncope and collapse 600479566 Completed 201005/13/2021 Syncope and collapse; Practice ID: 0001 Jaleesa washington [facility] 17:58:00 Speciali zed medical examinat ion Completed 201005/13/2021 Routine gynecolog ical examinati on;Practi ce ID: 0001 Jaleesa washington [facility] 17:57:59 Pregnanc y test positive 697601737 Completed 201005/13/2021 Positive Test;Prac diann ID: 0001 Jaleesa Turner [facility] 17:57:44 Screenin g for malignan t neoplasm of cervix Completed 201005/13/2021 Pap Smear;Pra ctice ID: 0001 Jaleesa Turner [facility] 17:57:51 Routine antenata l care Completed 201005/13/2021 Supervisi on of other normal ;Practice ID: 0001 Jaleesa washington [facility] 17:57:47 anatomy study Completed 201005/13/2021 [facility] ANAT SURVEY;Pr actice ID: 0001 Jaleesa washington [facility] 17:57:21 Labor and delivery complica madai by heart rate anomaly 037309173 Completed 201105/13/2021 HEART RATE NON REASSURIN G;Practic e ID: 0001 Jaleesa washington [facility] 17:57:31 Delivery normal 49941927 Completed 201105/13/2021 Normal delivery; Practice ID: 0001 Jaleesa washington [facility] 17:57:15 Single live from pat[place] n pregnanc y 008132060 Completed 201105/13/2021 Mother with single liveborn; Practice ID: 0001 Jaleesa Turner [facility] 17:57:54 Postpart um care Completed 201105/13/2021 Routine postpartu m follow-up ;Practice ID: 0001 Jaleesa Turner [facility] 17:57:43 Breast lump 45945570 Completed 201105/13/2021 Lump or mass in breast;Pr actice ID: 0001 Jaleesa Turner [facility] 17:57:09 Pain of breast 84529402 Completed 201205/13/2021 Mastodyni a;Practic e ID: 0001 Jaleesa Turner [facility] 17:57:41 Adult health examinat ion Completed 201405/13/2021 Routine general medical examinati on at a health care facility; Practice ID: 0001 Jaleesa Turner [facility] 17:57:[address] Concept Completed 201505/13/2021 Encntr for general adult medical exam w/o abnormal findings; Recorded Elsewhere : No Locati on: [facility] So urce: EHR Chron ic: N Practic e ID: 0001 Bill able Time: 02:30:00 PM Jaleesa Turner [facility] 17:57:56 Pregnanc y [id number] Completed 201005/13/2021 state, incidenta l;Recorde d Elsewhere : No Locati on: [facility] So urce: EHR Chron ic: N Practic e ID: 0001 Bill able Time: 11:45:00 AM Jaleesa Turner [facility] 17:57:46 Secondar y dysmenor lennox [id number] Completed 201905/13/2021 Secondary dysmenorr hea;Recor ded Elsewhere : No Locati on: [facility] So urce: EHR Chron ic: N Practic e ID: 0001 Bill able Time: 10:00:00 AM Jaleesa Turner [facility] 17:57:53 Neoplast ic disease of uncertai n behavior 146222529 Completed 201505/13/2021 Neoplasm of uncertain behavior, unspecifi ed;Record ed Elsewhere : No Locati on: [facility] So urce: EHR Chron ic: N Practic e ID: 0001 Bill able Time: 02:30:00 PM Jaleesa Turner [facility] 17:57:39 Problem Notes None recorded. Procedures Surgical History Date Name Laterality Status Provider Name and Address Organization Details Recorded Time 11/23/19 24 Date of Last Mammogram completed [facility] 07/11/2024 11:47:49 10/23/19 24 thyroidectomy completed [facility] 07/11/2024 11:48:20 08/14/20 20 Total Hysterectomy completed [facility] 12/23/2021 12:34:52 08/14/20 20 Hernia repair w/mesh completed [facility] 12/23/2021 12:35:31 06/07/20 18 Date of Last Pap Smear completed [facility] 05/30/2020 17:56:30 08/24/18 94 Thyroid Surgery completed Jaleesa Turner [facility] 05/14/2021 17:37:50 Cholecystectomy completed Liat Esquivel [facility] 05/18/2020 12:30:50 Tonsillectomy completed Liat Esquivel [facility] 05/18/2020 12:31:04 repair of small intestine completed Liat Machado [facility] 05/18/2020 12:31:22 Imaging Results None [...] Prescrib tracy Odell e: No Locat ion: [facility] odify By: kelli casper DateTime : 05/08/20 [...] Prescrib ed Elsewher e: No [facility] odify By: fannie tz Sakinaou nter DateTime : 11/12/19 19 09:30:00 AM Not Available Not Available Not Available Zofran 4 mg tablet take 2 tablet by oral route every 8 hours for 2 days 12/11 completed Prescrib ed Elsewher e: Yes Loca tion: [facility] odify By: kelli casper DateTime : 04/17/20 [...] Prescrib ed Elsewher e: No [facility]at [facility] odify By: adria thornton DateTime : 10/05/19 [...] Elsewher e: No Locat ion: [facility] odify By: roxannegeorgina Leone pennie DateTime [...] Elsewher e: Yes Loca tion: [facility] odify By: kelli casper DateTime : 12/12/19 12 02:30:00 PM Not Available Not Available Not Available azithromy elliott 500 mg tablet 02/26 completed Not Available Not Available Not Available Hallie 0.35 mg tablet take 1 tablet by oral route every day 11/15 completed Prescrib ed Elsewher e: No Locat ion: [facility] odify By: adria thornton DateTime : 12/12/19 12 02:30:00 PM Not Available Not Available Not Available topiramat e 50 mg tablet TAKE 1 TABLET BY MOUTH EVERY DAY active Not Available Not Available No t Available 10 mg-400 mcg capsule 11/15 completed Prescrib ed Elsewher e: Yes Loca tion: [facility] odify By: adria thornton DateTime : 04/17/20 11 11:45:00 AM Not Available Not Available Not Available Tirosint 25 mcg capsule take 1 capsule by oral route every day 05/15 completed Prescrib tracy Odell e: Nidhi Locat ion: [facility] Ricardo billy By: lbillhar tz Encou nter [...] Updated DateTime 10/14/2022 162.56 cm 30.9 kg/m2 95574.63 g 159/98 mm[Hg] 138/92 mm[Hg] [facility] 15:49:09 Date Recorded Body height Body mass index (BMI) Body weight Systolic And Diastolic Provider Name and Address Organization Details Last Updated DateTime 11/11/2022 162.56 cm 29.9 kg/m2 77844.07 g 135/90 mm[Hg] [facility] 11/11/2022 16:07:56 Date Recorded Body height Body mass index (BMI) Body weight Systolic And Diastolic Provider Name and Address Organization Details Last Updated DateTime 02/26/2023 162.56 cm 31.6 kg/m2 58691 g 113/81 mm[Hg] Sharon Scotter [facility] 02/26/2023 16:24:08 Date Recorded Body height Body mass index (BMI) Body weight Systolic And Diastolic Provider Name and Address Organization Details Last Updated DateTime 07/11/2024 162.56 cm 28.2 kg/m2 63687.59 g 114/82 mm[Hg] Cecy Vogel [facility] 07/11/2024 11:46:15 Date Recorded Systolic And Diastolic Systolic And Diastolic Provider Name and Address Organization Details Last Updated DateTime 08/15/2022 137/101 mm[Hg] 126/98 mm[Hg] MESERET Hoskins [address], [place], [address], [facility] 08/19/2022 17:48:10 Date Recorded Body height Body mass index (BMI) Body weight Provider Name and Address Organization Details Last Updated DateTime 08/15/2022 162.56 cm 29 kg/m2 45406.75 g Katheryn Neal [facility] 08/15/2022 11:15:29 Social History Question Answer Notes LastModified by Organizat ion Details LastModified Time Tobacco Smoking Status Never Smoker ALEK washington, [facility] 04/29/2022 17:39:11 Are You Blind Or [...] Or The Highest Degree You Have Received? NL08108-7 Information not available 01/10/2022 Do You Use [...] anxious, or unable to sleep at night)? [id number] Information not available 05/14/2021 Family History Relationship Description Onset Age of this Age Resolved Age Notes LastModified by Organization Details LastModified Time Mother Cyst of ovary [email or web address] Not available 2023 11:41:30 Mother Hypertensive disorder Not available 2021 17:47:00 Mother Disorder of thyroid gland Not available 2021 17:47:00 Paternal Grandmother Malignant lymphoma [email or web address] Not available 2023 11:41:30 Sister Asthma Not available 04/29/2022 17:47:00 Maternal Grandmother Disorder of thyroid gland Not available 2021 17:47:00 Paternal Grandfather Diabetes mellitus Not available 2021 17:47:00 Brother Asthma Not available 04/29/2022 17:47:00 Medical History Condition Response Thyroid Problems Y Anemia Y Gynecological History Statement/Question Response Date of [...] SNOMED-CT Code Diagnosis ICD10 Code Diagnosis Note [id number] Cheri Mendosa [facility] [address] [address] 05/18/2020 12:26:09 05/18/2020 17:12:36 Abnormal uterine bleeding [id number] 9100 N93.9 We discussed MD consult to [...] counseling and review of plan of care. [id number] Kj Macias MD [facility] [address] [address] 05/30/2020 17:49:39 05/31/2020 10:19:05 Menorrhagia 140117375 N92.0 This patient is a 40-year-ol d [...] referral, with a coordinate the surgery. Dyspareunia 97879794 N94 .10 On examina tion - VE - uterine tenderness 543944478 R39.89 Umbilical hernia 0218009 07 K42.9 [id number] Kj Macias MD [facility] [address],[place] [address] 08/20/2020 11:55:17 08/20/2020 11:56:38 [id number] Kj Macias MD [facility] [address],[place] [address] 08/22/2020 17:03:38 08/22/2020 17:59:30 Postoperative care 816284175 Z48.89 this patient is 40-year-ol d female presents forpostopf ollow-up. She is 1 weekpostop from a total laparoscop ic hysterecto my and bilateral salpingect jaxon. She is recovering normally. She had a hernia repair in [facility] with my surgery. She denies any nausea, vomiting, fever, chills. She denies any foul-smell ing vaginal discharge or watery vaginal discharge she denies any vaginal bleeding. She will follow up as needed. [id number] Kj Macias MD [facility] [address] [address] 10/08/2020 13:43:20 10/08/2020 14:37:05 Pain in pelvis 17514379 R10.2 this patient is a 40-year-ol d female who presents for pelvic pain. We agreed to obtain pelvic ultrasound . She returned to the pelvic ultrasound . Will discuss those results. She is status post TLH and laparoscop ic hernia repair. She had mesh placement. [id number] Kj Macias MD [facility] [address] [address] 10/29/2020 15:53:38 10/29/2020 16:48:01 Pain in pelvis 49475679 R10.2 this patient is a 40-year-ol d female who presents for pelvic pain. We agreed to obtain pelvic ultrasound . She returned to the pelvic ultrasound . Will discuss those results. She is status post TLH and laparoscop ic hernia repair. She had mesh placement. [id number] Kj Macias MD [facility] [address] [address] 10/29/2020 15:54:48 10/30/2020 14:18:43 Abdominal pain 82141661 R10.9 This patient is a 40-year-ol d [...] obtain a CT of the abdomen pelvis. [id number] [facility] [address] [address] 05/15/2021 12:33:28 05/15/2021 15:22:44 Gynecologic examination 37941689 Z01.419 Suggested Calcium with Vitamin D 1200-1500m g daily. Patient advised to get an annual flu shot in the fall and she could obtain at [facility] or [facility] take care clinic. Also to obtain TDap [...] ne need std screen Pain in pelvis 90793402 R10.2 Having what we think might be [...] issue is occurring cyclically vs random. lot#: [id number], Exp 05/2023 Screening mammography 24 484214 Z12.31 [id number] Kj Macias MD [facility] [address] [address] 12/23/2021 15:02:06 12/24/2021 12:57:08 Pain in pelvis 25009249 R10.2 This patient is a 41-year-ol d [...] bilateral salpingo-o ophorectom y. Acute pelvic pain 264117 005 R10.2 [id number] Kj Macias MD [facility] [address] [address] 01/06/2022 10:06:58 01/06/2022 10:10:02 [id number] Kj Macias MD [facility] [address] [address] 01/10/2022 10:41:17 01/10/2022 11:35:56 Postoperative care 703720399 Z48.89 this patient is a 41-year-ol d female presents for postop follow-up. She has no complaints . Her incisions are clean dry and intact. She had a laparoscop ic bilateral salpingo-o ophorectom y. She has well-heale d incisions. Her hormone replacemen t therapy at this time is adequate. She will contact us if she has any problems. [id number] Kj Macias MD [facility] [address] [address] 01/28/2022 16:40:35 01/30/2022 15:24:17 Obesity 053213037 E66.9 this patient is a 41-year-ol d [...] treatment options. she return in 2 weeks. [id number] Kj Macias MD [facility] [address],[facility] [place] [address] 02/25/2022 16:36:24 02/26/2022 16:27:58 Obesity 586420487 E66.9 Essential hypertension 73674455 I10 Non-alcoho lic fatty liver 725578861 K76.0 this patient is a 41-year-ol d [...] diabetes, hypertensi on, obesity medication s, exercise. [id number] Kj Macias MD [facility] [address],[facility] [place] [address] 03/04/2022 09:39:46 03/05/2022 14:23:46 [id number] Kj Macias MD [facility] [address] [address] 03/11/2022 16:16:25 03/11/2022 17:01:36 Obesity 073921183 E66.9 this patient is a 41-year-ol d [...] ce. More than 50% was counseling . [id number] Kj Macias MD [facility] [address] [address] 03/25/2022 14:42:11 03/26/2022 15:50:12 Obesity 719628737 E66.9 this patient is a 41-year-ol d [...] counseling . To return in 2 weeks [id number] Kj Macias MD [facility] [address] [address] 04/29/2022 17:37:03 04/30/2022 14:33:32 Obesity 189625964 E66.9 this patient is 41-year-ol d female [...] 30 mg and topiramate , 50 mg. [id number] Kj Macias MD [facility] [address] [address] 06/21/2022 09:53:47 06/23/2022 15:32:36 Obesity 280484879 E66.9 This patient is a 42-year-ol d [...] ce. More than 50% was counseling . [id number] Kj Macias MD [facility] [address] [address] 07/22/2022 15:49:09 07/22/2022 16:56:24 Obesity 906479287 E66.9 This patient is a 42-year-ol d [...] ce. More than 50% was counseling . [id number] MESERET Hoskins [facility] [address],[place] [address] 08/15/2022 10:55:45 08/21/2022 16:07:40 Obesity 559696270 E66.9 She has not had any weight loss since last visit since restarting phentermin eDiscussed exercise recommenda tions and healthy eatingEnco uraged seating captain appointmen tBp today elevated, 137/101 and 126/98. [...] Elevated blood-pressure reading without diagnosis of hypertension 397080133 R03.0 [id number] Kj Macisa MD [facility] [address],[place] [address] 10/14/2022 15:39:03 10/14/2022 16:31:43 Obesity 156736810 E66.9 42-year-ol d female presents for follow-up [...] ce. More than 50% was counseling . [id number] Kj Macias MD [facility] [address] [address] 11/11/2022 15:26:58 11/11/2022 18:35:17 Obesity 123800347 E66.9 This patient is a 42-year-ol d [...] ce. More than 50% was counseling . [id number] [facility] [address] [address] 02/26/2023 16:10:32 03/10/2023 15:29:55 Gynecologic examination 29950924 Z01.419 Suggested Calcium with Vitamin D 1200-1500m g daily. Patient advised to get an annual flu shot in the fall and she could obtain at [facility] or [facility] clinic. Also to obtain TDap vaccinatio n [...] Screen na Routine Labs PCP Menopausal symptom 61807 002 N95.1 Counseled on medication R/B's, Most common side effects, & use. All questions were answered to patient satisfacti on. Continue HRT as discussed. [id number] Kj Macias MD [facility] [address] [address] 07/11/2024 11:40:59 07/11/2024 12:10:29 Gynecologic examination 49523862 Z01.419 Annual gynecologi amelia exam performed. Patient [...] STI testing - declined Screening mammography 24 289711 Z12.31 Menopausal symptom 23757 002 N95.1 Counseled on medication R/B's, Most [...] Rizzo Member ID Guarantor Name 12/23/2021 1 [facility] [id number] Han Rubio [id number] Lory Rubio 07/10/2024 1 [facility] [id number] Han Rubio [id number] Lory Rubio Notes Date Note Type Note Provider Name and Address Organization Details Recorded Time 2 text/html 42yo Presents for weight management f/uStarted back on phentermine and [facility]ir[facility] weight loss since last visitSeeing seating captain, exercisingFeeling well, no negative SENo longer taking BP medication - had negative SE from it MESERET Hoskins [address], [place], [address], [facility] 08/19/2022 17:52:56 3 text/html 42-year-old female [...] in 1 month. we spent 20 minutes scev-lw-rngs. More than 50% was counseling. Kj Macias MD [address], [place], [address], [facility] 10/14/2022 16:17:22 3 text/html This patient is a 42-year-old female presents for follow-up on weight management. She is doing well again. She had regained 10 lb and she has lost 6-7. She is exercising. Her calorie management is good. We agreed to stay on the same medication. She has no untoward side effects. We spent 20 minutes jagf-jf-vahh. More than 50% was counseling. Kj Macias MD [address], [place], [address], [facility] 11/11/2022 16:20:25 3 text/html Annual Supervisor Gluing Post-MenopausalReporte d bypatient.Menopausal Symptoms:no menopausal symptoms; normal [...] year Cheri Mendosa [facility]- [address], [place], [address], [facility] 03/22/2023 22:12:43 4 text/html Annual GYNReported [...] today. SELENE OLIVAREZ NP [address], [place], [address], [facility] 07/11/2024 12:10:21 OBGyn Episode Ob Episode Information Episode Created Date Number of Fetuses Patient Bloodtype Patient rh Status Prepregnancy Weight lbs Domestic Partner Domestic Partner Phone Father Name Shop Mechanic Helper Status 05/18/20 20 1 CLOSED Fetus Data [...] Domestic Partner Domestic Partner Phone Father Name Shop Mechanic Helper Status 05/18/20 20 1 CLOSED Fetus Data [...] Domestic Partner Domestic Partner Phone Father Name Shop Mechanic Helper Status 05/18/20 20 1 CLOSED Fetus Data [...]
--- OUTSIDE RECORDS SUMMARY | 2025-03-06 07:13 | XMS_ITS | Clinical Summary ---
Author Organization [facility] Address [address] [place] [address] Care Team Providers Care Operations Research Analyst Name Role Phone Priya Hardin PA-C Primary Care Provider [phone] Allergies No known active allergies Medications levothyroxine [...] to complete this topic Insurance Care Teams Operations Research Analyst Relationship Specialty Start Date End Date Priya Hardin PA-C [address] [place], [place] [address] [place] [address] PCP - General PHYSICIAN PAYROLL COORDINATOR 06/25/23
--- OUTSIDE RECORDS SUMMARY | 2025-03-06 07:13 | XMS_ITS | Referral Summary ---
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 Gender Identity Not on file Sexual [...] Plan of Treatment Not on file Insurance [id number]US [facility] HMO/PPO Address[facility] [address] [place] [address] [facility] CHOICE PLUS [facility] HMO/PPO Address: [facility] [id number] [place] [address] Advance Directives For more information, please contact: [phone] * Full Code (Latest Code Status on File) Date Activated Date Inactivated Comments 11/18/2023 10:46 AM 11/18/2023 4:38 PM Care Teams Silhouette Artist Relationship Specialty Start Date End Date Priya Hardin PA [address] [place] [id number] PCP - General Family Practice 05/12/24
--- OUTSIDE RECORDS SUMMARY | 2025-03-06 07:13 | XMS_ITS | Patient Health Record ---
Author Organization [facility] Address [address] [place] [address] Care Team Providers Care Lunchroom Worker Name Role Phone Kizzy LAGUNAS, Nay Primary Care Provider Manfred OLIVEIRA NP, [facility] Allergies No Known Allergies Reason For [...] Insured Coverage Start Date Coverage End Date [facility] [address] [address] [place] [address] [id number] Lory Rubio Self - patient is the insured Medical (General) History Medical History History ICD Code hypertension Hypothyroidism depression melanoma Surgical History Surgery Date(Month/Year) partial thyroidectomy incisional hernia repeair cholecystectomy right colon resection d/t benign tumor
--- OUTSIDE RECORDS SUMMARY | 2025-03-06 07:13 | XMS_ITS | Clinical Summary ---
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 Gender Identity Not on file Sexual Orientation [...] patient's age to complete this topic Insurance [facility] CHOICE PLUS [facility] HMO/PPO Address: [address] [place] [id number] [facility] CHOICE PLUS [facility] H[facility]/PPO Address: [address] [place], [place] [id number] Advance Directives For more information, please contact: [phone] * Full Code (Latest Code Status on File) Date Activated Date Inactivated Comments 11/18/2023 10:46 AM 11/18/2023 4:38 PM Care Teams Molding And Trim Installer Relationship Specialty Start Date End Date Priya Hardin PA [address] [place] [id number] PCP - General Family Practice 05/12/24
--- OUTSIDE RECORDS SUMMARY | 2025-03-06 07:13 | XMS_ITS | Clinical Summary ---
Author Organization [facility] Address [address] [place] [phone] Phone Care Team Providers Care Control Officer Manager Name Role Phone Breezy Giraldo MD Primary Care Provider [phone] Allergies No known active allergies Medications estradioL [...] this topic Medical Devices Implanted Type Area Machine Stacker Device Identifier Shelf Expiration Date Model / Serial / Lot Hemostatic Surgicel 1x2in 1960 - [id number] Implanted:Qty: 1 on 11/04/2023 by Isidoro Prakash MD at [facility] Hemostatic N/A: Neck [employer] 07/23/20251960 / / [id number] Insurance [facility] [id number] RX [facility] [employer] Advance Directives For more information, please contact: [phone] * Full Code (Latest Code Status on File) Date Activated Date Inactivated Comments 11/04/2023 1:21 PM 11/04/2023 10:12 PM * Full Code Date Activated Date Inactivated Comments 12/09/2018 8:48 AM 12/09/2018 12:42 PM * Full Code Date Activated Date Inactivated Comments 10/11/2018 11:20 AM 10/12/2018 11:43 AM * Full Code Date Activated Date Inactivated Comments 10/11/2018 9:41 AM 10/11/2018 11:20 AM Care Teams Control Officer Manager Relationship Specialty Start Date End Date Breezy Giraldo MD [address] [place] [address] [place] [phone] PCP - General Internal Medicine 06/11/18
--- OUTSIDE RECORDS SUMMARY | 2025-03-06 07:13 | XMS_ITS | Encounter Summary ---
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
== END 2025-03-06 07:10 | disposition home or self-care (01) ==
LOC: CHSIMG 07:11
PROVIDERS: PCP Physician Assistant Medical; Visit Provider Obstetrics & Gynecology
DX: Z12.31 Encounter for screening mammogram for malignant neoplasm of breast (principal)
CPT/HCPCS: 77063; 77067